=== PATIENT | female | born 2000 | race Hispanic/Latino ===

== ENCOUNTER 2022-03-24 13:49 | Emergency (ER) | payer MEDICAID ==
[~2022-03-24] VITALS: Ht 165.1 cm; Wt 63.5 kg
[2022-03-24 14:14] LABS: BASOPHILS % (AUTO) 0.7 % (0.0-5.0); EOSINOPHILS % (AUTO) 0.3 % (0.0-8.0); HEMATOCRIT 38.1 % (36-48); LYMPHOCYTES % (AUTO) 17.7 % (21.0-51.0); MEAN CORPUSCULAR HEMOGLOBIN 27.7 pg (27.0-33.0); MEAN CORPUSCULAR HGB CONC 32.5 g/dL (32.0-36.0); MONOCYTES % (AUTO) 5.9 % (3.0-13.0); NEUTROPHILS % (AUTO) 75.2 % (40.0-77.0); PLATELET COUNT (AUTO) 244 K/uL (130-400); RED BLOOD CELL COUNT(AUTO) 4.48 MIL/uL (4.00-5.50); RED CELL DISTRIBUTION WIDTH 14.5 % (11.0-15.5); WHITE BLOOD COUNT (AUTO) 8.7 K/uL (4.8-10.8)
[2022-03-24 14:24] LABS: CREATININE 0.8 mg/dL (0.5-1.5); POTASSIUM 3.6 mmol/L (3.5-5.1)
[2022-03-24] MEDS ORDERED: DiphenhydrAMINE HCL 50 MG/ML VIAL ONE (14:26)
[2022-03-24] MEDS ORDERED: PROCHLORPERAZINE 10MG/2ML INJ ONE (14:26)
[2022-03-24 14:28] LABS: ALBUMIN 3.9 g/dL (3.5-5.0); TOTAL PROTEIN, SERUM 6.8 g/dL (6.0-8.3)
[2022-03-24] MEDS ORDERED: PROCHLORPERAZINE 10MG/2ML INJ IV ONE (14:30)
[2022-03-24] MEDS ORDERED: DiphenhydrAMINE HCL 50 MG/ML VIAL IV ONE (14:30)
[2022-03-24 15:00] LABS: APPEARANCE,URINE CLEAR (CLEAR); BILIRUBIN,URINE NEGATIVE (NEGATIVE); GLUCOSE, URINE (UA) NEGATIVE (NEGATIVE); KETONES,URINE NEGATIVE (NEGATIVE); LEUKOCYTE ESTERASE ,URINE SMALL (NEGATIVE); NITRATE,URINE NEGATIVE (NEGATIVE); OCCULT BLOOD,URINE NEGATIVE (NEGATIVE); PH,URINE 6.5 (5.0-8.0); PROTEIN,URINE NEGATIVE (NEGATIVE); UROBILINOGEN,URINE 0.2 mg/dL (0.2-1.0)
[2022-03-24 15:08] LABS: HCG,QUALITATIVE URINE NEGATIVE (NEGATIVE)
[2022-03-24 15:09] LABS: COLOR,URINE STRAW (YELLOW)
[2022-03-24 15:14] LABS: BACTERIA,URINE None Seen /HPF (None Seen); MUCUS,URINE Few LPF (None Seen); RBC,URINE 0-1 /HPF (0-1); SQUAMOUS EPITHELIAL CELL,UR Few /HPF (0-2)
[2022-03-24] MEDS ORDERED: CEPH500B PO (15:33)
[2022-03-24 15:50] VITALS: BP 108/59
== END 2022-03-24 15:50 | disposition home or self-care (01) ==
LOC: EDH 13:49
DX: G43.909 Migraine, unspecified, not intractable, without status migrainosus (principal); N39.0 Urinary tract infection, site not specified
CPT/HCPCS: 99285; 96374; 70450; 96375; 80053; 85025; 81001; 81025; 36415; 93005; J1200; J0780

== ENCOUNTER 2024-08-17 03:44 | Emergency (ER) | payer MEDICAID ==
[~2024-08-17] VITALS: Ht 165.1 cm; Wt 65.3 kg
[~2024-08-17 03:44] MED LIST: CYCL10TA16 PO; IBUP-2070 PO; METH4TAB3 PO; PREN-154 PO
[2024-08-17 03:45] VITALS: TEMP 97.9
[2024-08-17] MEDS: 0.9%NACL 1000ML 1,000 ML IV ONE (04:09)
[2024-08-17 04:17] LABS: BASOPHILS # (AUTO) 0.05 K/uL (0.00-0.20); BASOPHILS % (AUTO) 0.5 % (0.0-5.0); EOSINOPHILS # (AUTO) 0.08 K/uL (0.00-0.70); EOSINOPHILS % (AUTO) 0.8 % (0.0-8.0); HEMATOCRIT 33.9 % (36-48); IMMATURE GRANULOCYTE ABSOLUTE 0.06 K/uL (0-1); LYMPHOCYTES # (AUTO) 3.4 K/uL (1.0-4.8); LYMPHOCYTES % (AUTO) 35.2 % (21.0-51.0); MEAN CORPUSCULAR HEMOGLOBIN 25.1 pg (27.0-33.0); MEAN CORPUSCULAR HGB CONC 32.2 g/dL (32.0-36.0); MEAN CORPUSCULAR VOLUME 78.1 fL (79-99); MONOCYTES # (AUTO) 0.5 K/uL (0.1-1.0); MONOCYTES % (AUTO) 5.3 % (3.0-13.0); NEUTROPHILS # (AUTO) 5.6 K/uL (1.8-7.7); NEUTROPHILS % (AUTO) 57.6 % (40.0-77.0); PLATELET COUNT (AUTO) 327 K/uL (130-400); RED BLOOD CELL COUNT(AUTO) 4.34 MIL/uL (4.00-5.50); RED CELL DISTRIBUTION WIDTH 13.2 % (11.0-15.5); WHITE BLOOD COUNT (AUTO) 9.7 K/uL (4.8-10.8)
[2024-08-17 04:27] LABS: CREATININE 0.7 mg/dL (0.5-1.0); POTASSIUM 3.1 mmol/L (3.5-5.1)
[2024-08-17 04:32] LABS: ALBUMIN 2.9 g/dL (3.5-5.0); BILIRUBIN,DIRECT 0.1 mg/dL (0.0-0.3); BILIRUBIN,TOTAL 0.2 mg/dL (0.2-1.0); TOTAL PROTEIN, SERUM 6.8 g/dL (6.0-8.3)
[2024-08-17 04:48] LABS: APPEARANCE,URINE CLOUDY (CLEAR); BILIRUBIN,URINE NEGATIVE (NEGATIVE); COLOR,URINE LIGHT-YELLOW (YELLOW); GLUCOSE, URINE (UA) NEGATIVE (NEGATIVE); KETONES,URINE NEGATIVE (NEGATIVE); LEUKOCYTE ESTERASE ,URINE 500 Leu/uL (NEGATIVE); NITRATE,URINE NEGATIVE (NEGATIVE); OCCULT BLOOD,URINE NEGATIVE (NEGATIVE); PH,URINE 6.5 (5.0-8.0); PROTEIN,URINE NEGATIVE (NEGATIVE); UROBILINOGEN,URINE 0.2 mg/dL (0.2-1.0)
[2024-08-17 04:49] LABS: ADD UA MICROSCOPIC YES
[2024-08-17 04:50] LABS: BACTERIA,URINE FEW /HPF (None Seen); MUCUS,URINE RARE LPF (None Seen); SQUAMOUS EPITHELIAL CELL,UR RARE /HPF (0-2); WBC CLUMP FEW /HPF (0-1); WBC,URINE 51-100 /HPF (0-1)
--- NOTE | 2024-08-17 04:50 | ERN ---
ED Note History of Present Illness Stated Complaint: EPIGASTRIC PAIN Chief Complaint: Abdominal Pain in Time Seen by MD: 04:05 Dictation: This is a 24-year-old female who is comes in with epigastric pain. She is 29.4 weeks gestation 2 para 1 with a due date on 10/29/2024 apparently began experiencing epigastric pain with nausea and vomitings. No headaches blurred vision no jaundice. No hematemesis or melena no diarrhea. Temperature 97.9 pulse 82 respirations 20 blood pressure 106/75 with a pulse oximetry of 100% on room air Allergies: Coded Allergies: No Known Allergies (Unverified Allergy, Unknown, 03/24/22) Home Meds Active Scripts Cyclobenzaprine HCl (Flexeril) 10 Mg Tab, 10 MG PO TID for muscle sstiffness, #14 TAB 0 Refills Prov:SHIVANI CALLE [employer]PER[employer]OR 03/03/24 Ibuprofen (Ibuprofen) 600 Mg Tablet, 600 MG PO Q6H PRN for PAIN, #30 TAB Prov:SHIVANI CALLE NP 03/03/24 Methylprednisolone (Medrol) 4 Mg Tab.ds.pk, 4 MG PO AD, #1 UNIT Prov:SHIVANI CALLE [employer] SUPERVISOR 03/03/24 Reported Medications Vits #93/Iron Fum/FA ( Formula Tablet) 9 Mg Iron-267 Mcg Tablet, 1 EACH PO DAILY, TAB 08/13/23 Past Medical History Past Medical History: No Pertinent History Surgical History: None Family History: Negative Social History: Negative, Lives with family History: Not Applicable : 2 Para: 1 Aborts: 0 RN Note Reviewed/Agreed w/PFSH: Yes Review of System Dictation Constitutional: Negative for fever,chills, and weight loss Eyes: Negative for injury, pain,redness, and discharge ENT: Negative for injury,pain or swelling Cardiovascular: Negative for chest pain, palpitations, and edema Respiratory: Negative for shortness of breath, cough, and wheezing, Abdomen/GI: Positive for epigastric abdominal pain, nausea, vomiting, denies diarrhea, and constipation Back: Negative for injury and pain : Negative for injury, bleeding and discharge MS/Extremity: Negative for injury and deformity Skin: Negative for rash, and discoloration Neuro: Negative for headache, weakness, numbness, tingling, and seizure Psych: Negative for suicide ideation, homicidal ideation, and hallucinations Initial Vital Sign VS Vital Signs Date Time Temp Pulse Resp B/P (MAP) Pulse Ox O2 Delivery O2 Flow Rate FiO2 08/17/24 03:45 97.9 82 20 106/75 100 Room Air 08/17/24 04:26 0 21 Physical Exam Dictation General: awake, alert, NAD Head/Face: Normocephalic, atraumatic Eyes: PERRL, EOMI, vision at baseline ENT: oral cavity clear, TMs clear, no signs of infection Neck: Trachea midline, supple, no nuchal rigidity Cardiovascular: RRR, normal S1/S2, No MRGs, no JVD Respiratory: CTAB, no respiratory distress, No rales or wheezes Abdomen: Soft, non-tender, non-distended, normal bowel sounds, no guarding or rebound. Skin: Warm, dry, normal turgor, no rash MS/Extremity: Pulses equal, no cyanosis, neurovascular intact, FROM Neuro: COAx4, GCS 15, strength 5/5, CN 2-12 intact, normal cerebellar exam, normal gait, Psych: Normal behavior, mood, and affect normal Extremities-trace edema without any palpable cords, Homans sign is negative Results (Laboratory/Radiology) Laboratory/Radiology Laboratory Tests Test 08/17/24 03:53 08/17/24 04:36 White Blood Count 9.7 K/uL (4.8-10.8) Red Blood Count 4.34 MIL/uL (4.00-5.50) Hemoglobin 10.9 g/dL (12.0-16.0) L Hematocrit 33.9 % (36-48) L Mean Corpuscular Volume 78.1 fL (79-99) L Mean Corpuscular Hemoglobin 25.1 pg (27.0-33.0) L Mean Corpuscular Hemoglobin Concent 32.2 g/dL (32.0-36.0) Red Cell Distribution Width 13.2 % (11.0-15.5) Platelet Count 327 K/uL (130-400) Mean Platelet Volume 10.8 fL (7.5-10.5) H Immature Granulocyte % (Auto) 0.6 % (0-1) Neutrophils (%) (Auto) 57.6 % (40.0-77.0) Lymphocytes (%) (Auto) 35.2 % (21.0-51.0) Monocytes (%) (Auto) 5.3 % (3.0-13.0) Eosinophils (%) (Auto) 0.8 % (0.0-8.0) Basophils (%) (Auto) 0.5 % (0.0-5.0) Neutrophils # (Auto) 5.6 K/uL (1.8-7.7) Lymphocytes # (Auto) 3.4 K/uL (1.0-4.8) Monocytes # (Auto) 0.5 K/uL (0.1-1.0) Eosinophils # (Auto) 0.08 K/uL (0.00-0.70) Basophils # (Auto) 0.05 K/uL (0.00-0.20) Absolute Immature Granulocyte (auto 0.06 K/uL (0-1) Nucleated Red Blood Cells 0.0 % (0.0-0.19) Sodium Level 141 mmol/L (136-145) Potassium Level 3.1 mmol/L (3.5-5.1) L Chloride Level 105 mmol/L (101-111) Carbon Dioxide Level 24 mmol/L (21-32) Blood Urea Nitrogen 10 mg/dL (7-18) Creatinine 0.7 mg/dL (0.5-1.0) Glomerular Filtration Rate Calc 125 mL/min (>90) Random Glucose 117 mg/dL (70-105) H Total Calcium 8.6 mg/dL (8.5-10.1) Total Bilirubin 0.2 mg/dL (0.2-1.0) Direct Bilirubin 0.1 mg/dL (0.0-0.3) Aspartate Amino Transf (AST/SGOT) 37 U/L (10-37) Alanine Aminotransferase (ALT/SGPT) 28 U/L (12-78) Alkaline Phosphatase 90 U/L (50-136) Total Protein 6.8 g/dL (6.0-8.3) Albumin 2.9 g/dL (3.5-5.0) L Lipase 43 U/L (16-77) Urine Color LIGHT-YELLOW (YELLOW) Urine Appearance CLOUDY (CLEAR) H Urine pH 6.5 (5.0-8.0) Urine Specific [place] 1.016 (1.001-1.031) Urine Protein NEGATIVE mg/dL (NEGATIVE) Urine Glucose (UA) NEGATIVE mg/dL (NEGATIVE) Urine Ketones NEGATIVE mg/dL (NEGATIVE) Urine Occult Blood NEGATIVE (NEGATIVE) Urine Nitrate NEGATIVE (NEGATIVE) Urine Bilirubin NEGATIVE mg/dL (NEGATIVE) Urine Urobilinogen 0.2 mg/dL (0.2-1.0) Urine Leukocyte Esterase 500 Nava/uL (NEGATIVE) H Urine RBC 2-5 /HPF (0-1) H Urine WBC 51-100 /HPF (0-1) H Urine WBC Clumps (Auto) FEW /HPF (0-1) Urine Squamous Epithelial Cells RARE /HPF (0-2) Urine Bacteria FEW /HPF (None Seen) ED Course ED Course Orders Procedure Category Date Status Time Cbc With Differential LAB 08/17/24 Complete 04:07 Basic Metabolic Panel LAB 08/17/24 Complete 04:07 Lipase LAB 08/17/24 Complete 04:07 Hepatic Function Panel LAB 08/17/24 Complete 04:07 Urinalysis Profile LAB 08/17/24 Complete 04:07 0.9%Nacl 1000ml (Ns PHA 08/17/24 In Process 1000ml) 04:30 Culture Urine RICK 08/17/24 In Process 04:49 Famotidine 20mg Vial PHA 08/17/24 Complete (Pepcid 20mg Vial) 05:00 Ondansetron 4mg Inj PHA 08/17/24 Complete (Zofran 4mg Inj) 05:00 Current Medications Medications (Trade) Dose Ordered Sig/Jazmine Route PRN Reason Start Time Stop Time Status Last Admin Dose Admin Famotidine (Pepcid 20mg Vial) 20 mg ONCE ONCE IV 08/17/24 05:00 08/17/24 05:01 DC 08/17/24 05:12 Ondansetron HCl (zoFRAN 4MG INJ) 4 mg ONCE ONCE IVP 08/17/24 05:00 08/17/24 05:01 DC 08/17/24 05:14 Sodium Chloride 1,000 ml @ 125 mls/hr Q8H ONCE IV 08/17/24 04:30 08/17/24 12:29 08/17/24 04:09 Vital Signs Date Time Temp Pulse Resp B/P (MAP) Pulse Ox O2 Delivery O2 Flow Rate FiO2 08/17/24 05:20 82 17 106/57 100 Room Air* 0 21 08/17/24 04:26 81 19 103/58 100 Room Air* 0 21 08/17/24 03:45 97.9 82 20 106/75 100 Room Air We will perform diagnostic labs, administer medications according to the patient's complaint. Once the results are available, will review and personally interpreted the labs to rule out any acute life-threatening emergency the trach require immediate intervention and treatment. I will then re-evaluate the patient after treatment and diagnostic exams have return to determine whether the patient requires any further testing, can safely be discharged home or need further admission to hospital for additional treatment and evaluation. Responded very well to Pepcid and ondansetron. Also given IV fluids. 5:37 a.m. on repeated re-evaluations she is feeling significantly improved her symptoms have resolved. I explained to her that it is not uncommon to have gastritis and esophagitis and reflux symptoms in the 3rd trimester of and she could take [id number] Pepcid. Medical Decision Making MDM MDM: Differential diagnosis: Gastritis, esophagitis, food poisoning, gastroenteritis, cholecystitis Rationale: Tests considered and ordered secondary to shared decision making include: Previous outside records reviewed: Old ER visits. Risk of complication and/or morbidity or mortality of patient management: None Medications-Per medication reconciliation Need for hospitalization: Patient does not meet criteria for hospitalization. Need for emergency major/minor surgery: No There are no social concerns with this patient. Prescription drug management Prescriptions will include symptomatic care Patient's prior external medical records from other ER visits were reviewed by me as indicated. Prior testing and results from previous visits were reviewed. Prior tests were taken into account with medical decision making and resource utilization, independent historian/historians were used to obtain complete medical history. I independently interpreted the test that were performed, results were reviewed by me and considered findings on radiology if ordered. Medical management and examination interpretation discussions were had by me with other qualified healthcare professionals as indicated for the patient's care. Problem List Problem List: (1) Gastritis (2) DX & DISP Disposition: Discharge Departure Impression: Primary Impression: Gastritis Additional Impression: Condition: Stable Scripts Ondansetron (Ondansetron Odt) 4 Mg Tab.rapdis 4 MG PO Q6HPRN PRN for nausea, #16 TAB 0 Refills Prov: THEO JEAN MD 08/17/24 Additional Instructions: Patient and the caregiver have been informed of all the diagnostic tests and the imaging conducted during the today's visit to the emergency room and has verbalized understanding of the results I have personally reviewed and interpreted all diagnostic exams performed here in the ER today as well as the vital signs documented by the nursing staff. The patient is now being discharged to home and should follow up with the primary care physician or the specialist as directed by the ER staff. Follow-up with primary care provider in 1 to 2 days. Take medications as directed here in the emergency room. Okay to continue home medications unless otherwise discussed during your visit in the emergency room today. Return to your nearest emergency room if symptoms worsen or if there is no improvement. Call 911 if you need immediate assistance. Take Tylenol or Motrin [id number] as needed and if no contraindications are present. Increase oral hydration. A wound culture or urine culture was ordered here in the emergency room department please follow-up with primary care provider and advise them to get repeat ports from our facility. If you had any Ridge wrap/splints that were applied here, please do not remove them until you see your primary care or specialty. Referrals: NONE (PCP) THEO JEAN MD Aug 17, 2024 04:50
[2024-08-17] MEDS: FAMOTIDINE 20MG VIAL IV ONE (05:12)
[2024-08-17] MEDS: ondanSETRON 4MG INJ IVP ONE (05:14)
[2024-08-17] MEDS ORDERED: ONDA-243 PO (05:38)
[2024-08-17 05:40] VITALS: BP 102/63; PULSE 82; RESP 17; O2SAT 100
[2024-08-17] MEDS: PoTASSium BIcarbonate/CIT AC 25 MEQ TABLET.EFF PO ONE (06:04)
== END 2024-08-17 06:32 | disposition home or self-care (01) ==
LOC: EDH 03:44
DX: O26.893 Other specified pregnancy related conditions, third trimester (principal); K29.70 Gastritis, unspecified, without bleeding
CPT/HCPCS: 99284; 96374; 96375; 80076; 80048; 83690; 85025; 87086; 81001; 36415; J3490; J7030; J2405

== ENCOUNTER 2025-01-22 11:19 | Inpatient (IN) | payer MEDICAID ==
[~2025-01-22] VITALS: Ht 165.1 cm; Wt 61.5 kg
[~2025-01-22 11:19] MED LIST changes: +ONDA-243 PO
[2025-01-22] MEDS: LACTATED RINGERS 1000ML 1,000 ML IV ONE (11:40)
[2025-01-22] MEDS: DICYCLOMINE HCL 10 MG/5 ML ML PO ONE (11:41)
[2025-01-22] MEDS: MAG/ALUM/SIMETH 30 ML UDCUP PO ONE (11:41)
[2025-01-22] MEDS: LIDOCAINE HCL 2% VISCOUS 15 ML UDCUP PO ONE (11:41)
[2025-01-22 11:45] LABS: IMMATURE GRANULOCYTE ABSOLUTE 0.05 K/uL (0-1); NUCLEATED RED BLOOD CELLS 0.0 % (0.0-0.19); PLATELET COUNT (AUTO) 374 K/uL (130-400); RED BLOOD CELL COUNT(AUTO) 5.08 MIL/uL (4.00-5.50); RED CELL DISTRIBUTION WIDTH 21.1 % (11.0-15.5); WHITE BLOOD COUNT (AUTO) 12.4 K/uL (4.8-10.8)
--- NOTE | 2025-01-22 11:59 | EKG ---
[facility] Test Date: 2025-01-22 Test Time: 11:55:04 Pat Name: HADLEY BREWER Department: ED Room: 306 Gender: F Web Operations Specialist: [id number] : 2000 Requested By: NEMESIO XAVIER Order Number: [id number] Reading MD: Philip Stiles Measurements Intervals Leivasy Rate: 82 P: 4 MO: 113 QRS: 55 QRSD: 86 T: 2 QT: 386 QTc: 452 Interpretive Statements Sinus rhythm Compared to ECG 03/24/2022 13:57:26 Sinus arrhythmia no longer present Short MO interval no longer present Electronically Signed On 01-23-2025 15:04:46 CDT by Philip Stiles Please click the below link to view image of tracing.
[2025-01-22 12:02] LABS: ASPARTATE AMINOTRANSFERASE 299.0 U/L (10-37); CREATINE KINASE, TOTAL 103.0 U/L (21-232); CREATININE 0.9 mg/dL (0.5-1.0); GLOMERULAR FILTR. RATE CALC 92.0 mL/min (>90); GLUCOSE,RANDOM 158.0 mg/dL (70-105); HCG,QUANTITATIVE 0.0 mIU/mL (0-5); SODIUM SERUM 138.0 mmol/L (136-145); TOTAL PROTEIN, SERUM 7.9 g/dL (6.0-8.3); UREA NITROGEN, BLOOD 12.0 mg/dL (7-18)
--- NOTE | 2025-01-22 12:53 | ERN ---
General Chief Complaint: Nausea,Vomiting,Diarrhea Stated Complaint: ABDOMINAL PAIN, NAUSEA, VOMITING Time Seen by MD: 11:19 Source: patient History of Present Illness Initial Comments PATIENT IS A 24-YEAR-OLD FEMALE COMING IN COMPLAINING OF EPIGASTRIC PAIN. PATIENT STATES THAT THE PAIN BEGAN YESTERDAY IN HIS HAS BEEN GETTING WORSE SINCE THEN. PATIENT STATES HE CAN NOT TOLERATE ANYTHING ORAL IN HIS ALSO COMPLAINING OF MULTIPLE EMESIS. Allergies: Coded Allergies: No Known Allergies (Unverified Allergy, Unknown, 03/24/22) Home Meds Active Scripts Ondansetron (Ondansetron Odt) 4 Mg Tab.rapdis, 4 MG PO Q6HPRN PRN for nausea, #16 TAB 0 Refills Prov:THEO JEAN MD 08/17/24 Cyclobenzaprine HCl (Flexeril) 10 Mg Tab, 10 MG PO TID for muscle sstiffness, #14 TAB 0 Refills Prov:SHIVANI CALLE NP 03/03/24 Ibuprofen (Ibuprofen) 600 Mg Tablet, 600 MG PO Q6H PRN for PAIN, #30 TAB Prov:SHIVANI CALLE NP 03/03/24 Methylprednisolone (Medrol) 4 Mg Tab.ds.pk, 4 MG PO AD, #1 UNIT Prov:SHIVANI CALLE NP 03/03/24 Reported Medications Vits #93/Iron Fum/FA ( Formula Tablet) 9 Mg Iron-267 Mcg Tablet, 1 EACH PO DAILY, TAB 08/13/23 Past Medical History Past Medical History: Other Medical History Other: GASTRITIS Past Surgical History: None Family History Family History: Negative Social History Social History: Negative, Lives with family Female( History) History: Not Applicable : 2 Para: 1 Aborts: 0 ROS Dictation CONSTITUTIONAL: NO CHILLS, NO FEVER, NO WEAKNESS, NO DIAPHORESIS, NO MALAISE. HEAD/FACE: NO SIGNS OF TRAUMA. EENT: NO EYE PAIN, NO BLURRED VISION, NO TEARING, NO DOUBLE VISION, NO EAR PAIN, NO EAR DISCHARGE, NO NOSE PAIN, NO NASAL CONGESTION, NO THROAT PAIN, NO THROAT SWELLING, NO MOUTH PAIN. RESPIRATORY: NO COUGH, NO ORTHOPNEA, NO SOB, NO STRIDOR, NO WHEEZING. CARDIOVASCULAR: NO CHEST PAIN, NO EDEMA, NO PALPITATIONS, NO SYNCOPE. GASTROINTESTINAL/ABDOMINAL: ABDOMINAL PAIN, NO CONSTIPATION, NO DIARRHEA, NAUSEA, VOMITING. GENITOURINARY: NO ABNORMAL DISCHARGE, NO DYSURIA, NO FREQUENT URINATION, NO HEMATURIA. NO COMPLAINTS OF PAIN IN THE GENITALS. MUSCULOSKELETAL: NO BACK PAIN, NO GOUT, NO JOINT PAIN, NO JOINT SWELLING, NO MUSCLE PAIN, NO MUSCLE STIFFNESS, NO NECK PAIN. INTEGUMENTARY: NO CHANGE IN COLOR, NO CHANGE IN HAIR/NAILS, NO DRYNESS, NO LESION, NO LUMPS, NO RASH. NEUROLOGICAL/PSYCH: NO ANXIETY, NOT DEPRESSED, NO EMOTIONAL PROBLEM, NO HEADACHE, NO NUMBNESS, NO PRE-EXISTING DEFICIT, NO HISTORY OF SEIZURES, NO TREMORS, NO WEAKNESS. HEMATOLOGIC/LYMPHATIC: NOT ANEMIC, NO HISTORY OF BLOOD CLOTS, NO APPARENT BLEEDING, NO BRUISING, GLANDS NOT SWOLLEN. ALL SYSTEMS NEGATIVE, EXCEPT NOTED. Physical Exam Physical Exam Dictation VITAL SIGNS: REVIEWED. GENERAL APPEARANCE: ALERT, ORIENTED X3, NO ACUTE DISTRESS, OBESE. HEAD AND FACE: NON-TRAUMATIC. EYES: PERRL, PINK CONJUNCTIVAS, EYELID NO TRAUMA, ANTERIOR CHAMBER CLEAR. EARS: PINNAS INTACT AND NO SIGNS OF TRAUMA OR ERYTHEMA. EAR CANALS CLEAR AND NO DISCHARGE. TMS NO ERYTHEMA. NOSE: NO DISCHARGE, NO BLEEDING. OROPHARYNX: MOUTH NORMAL, TEETH NO CARIES, TONGUE PINK. PHARYNX CLEAR, NO ERYTHEMA. TONSILS NO EXUDATES, NO ABSCESSES NOTED. MUCOUS MEMBRANE MOIST. NECK: SUPPLE, NON-TENDER, NO THYROMEGALY, NO MASSES, NO JVD, NO BRUITS. BREAST: DEFERRED. CHEST: NO TENDERNESS, NO CREPITUS, NO PARADOXICAL MOVEMENT, NO RETRACTIONS. LUNGS: CLEAR, WELL-VENTILATED, SYMMETRIC, NO RALES, NO WHEEZING, NO RHONCHI, NO STRIDOR, GOOD BREATH SOUNDS BILATERALLY. HEART: REGULAR RATE, REGULAR RHYTHM, NO MURMUR, NO GALLOPS. VASCULAR: NO PERIPHERAL EDEMA. ABDOMEN: SOFT, POSITIVE BOWEL SOUNDS, NONDISTENDED, NO GUARDING, EPIGASTRIC TENDER, NO REBOUND, NO MASSES NO HEPATOMEGALY, NO SPLENOMEGALY, AMATO'S SIGN, NO HERNIAS. RECTAL: DEFERRED. GENITAL: DEFERRED. NEUROLOGICAL: NORMAL SPEECH, GROSS MOTOR FUNCTION INTACT, GROSS SENSORY FUNCTION INTACT. MUSCULOSKELETAL: NECK NONTENDER, FULL RANGE OF MOTION, BACK NONTENDER, FULL RANGE OF MOTION. EXTREMITIES: NONTENDER, FULL RANGE OF MOTION. SKIN: COLOR PINK, DRY, NO TURGOR, NO RASH, NO LACERATIONS, NO ABRASIONS, NO CONTUSIONS. LYMPHATICS: DEFERRED. Results Laboratory and Microbiology Lab and Micro Result Laboratory Tests Test 01/22/25 11:24 01/22/25 11:36 01/22/25 14:00 Urine Color DARK-YELLOW (YELLOW) Urine Appearance CLOUDY (CLEAR) H Urine pH 7.5 (5.0-8.0) Urine Specific [place] 1.014 (1.001-1.031) Urine Protein 10 mg/dL (NEGATIVE) H Urine Glucose (UA) NEGATIVE mg/dL (NEGATIVE) Urine Ketones NEGATIVE mg/dL (NEGATIVE) Urine Occult Blood NEGATIVE (NEGATIVE) Urine Nitrate NEGATIVE (NEGATIVE) Urine Bilirubin 2 mg/dL (NEGATIVE) H Urine Urobilinogen 6 mg/dL (0.2-1.0) H Urine Leukocyte Esterase 250 Nava/uL (NEGATIVE) H Urine RBC 2-5 /HPF (0-1) H Urine WBC 6-10 /HPF (0-1) H Urine Squamous Epithelial Cells MOD /HPF (0-2) Urine Bacteria RARE /HPF (None Seen) Urine HCG, Qualitative NEGATIVE (NEGATIVE) Urine Opiates Screen NEGATIVE (NEGATIVE) Urine Barbiturates Screen NEGATIVE (NEGATIVE) Urine Phencyclidine Screen NEGATIVE (NEGATIVE) Urine Amphetamines Screen NEGATIVE (NEGATIVE) Urine Benzodiazepines Screen NEGATIVE (NEGATIVE) Urine Cocaine Screen NEGATIVE (NEGATIVE) Urine Marijuana (THC) Screen POSITIVE (NEGATIVE) H White Blood Count 12.4 K/uL (4.8-10.8) H Red Blood Count 5.08 MIL/uL (4.00-5.50) Hemoglobin 12.4 g/dL (12.0-16.0) Hematocrit 39.5 % (36-48) Mean Corpuscular Volume 77.8 fL (79-99) L Mean Corpuscular Hemoglobin 24.4 pg (27.0-33.0) L Mean Corpuscular Hemoglobin Concent 31.4 g/dL (32.0-36.0) L Red Cell Distribution Width 21.1 % (11.0-15.5) H Platelet Count 374 K/uL (130-400) Mean Platelet Volume 9.5 fL (7.5-10.5) Immature Granulocyte % (Auto) 0.4 % (0-1) Neutrophils (%) (Auto) 68.1 % (40.0-77.0) Lymphocytes (%) (Auto) 25.0 % (21.0-51.0) Monocytes (%) (Auto) 5.5 % (3.0-13.0) Eosinophils (%) (Auto) 0.6 % (0.0-8.0) Basophils (%) (Auto) 0.4 % (0.0-5.0) Neutrophils # (Auto) 8.4 K/uL (1.8-7.7) H Lymphocytes # (Auto) 3.1 K/uL (1.0-4.8) Monocytes # (Auto) 0.7 K/uL (0.1-1.0) Eosinophils # (Auto) 0.08 K/uL (0.00-0.70) Basophils # (Auto) 0.05 K/uL (0.00-0.20) Absolute Immature Granulocyte (auto 0.05 K/uL (0-1) Nucleated Red Blood Cells 0.0 % (0.0-0.19) Red Blood Cell Morphology See comments Sodium Level 138 mmol/L (136-145) Potassium Level 2.8 mmol/L (3.5-5.1) *L Chloride Level 99 mmol/L (101-111) L Carbon Dioxide Level 25 mmol/L (21-32) Blood Urea Nitrogen 12 mg/dL (7-18) Creatinine 0.9 mg/dL (0.5-1.0) Glomerular Filtration Rate Calc 92 mL/min (>90) Random Glucose 158 mg/dL (70-105) H Total Calcium 9.4 mg/dL (8.5-10.1) Total Bilirubin 5.1 mg/dL (0.2-1.0) H Aspartate Amino Transf (AST/SGOT) 299 U/L (10-37) H Alanine Aminotransferase (ALT/SGPT) 522 U/L (12-78) H Alkaline Phosphatase 383 U/L (50-136) H Total Creatine Kinase 103 U/L (21-232) Total Protein 7.9 g/dL (6.0-8.3) Albumin 3.9 g/dL (3.5-5.0) Lipase 9744 U/L (16-77) *H Human Chorionic Gonadotropin, Quant 0 mIU/mL (0-5) Triglycerides Level 194 mg/dL (30-200) Labs Reviewed?: Yes EKG/XRAY/US/CT/MRI EKG Comment 01/22/2025 TIME 11:55 A.M. VENTRICULAR RATE 82 SINUS RHYTHM MD [address] WAVE ELEVATION OR DEPRESSION MDM MDM: DIFFERENTIAL DIAGNOSIS: CHOLECYSTITIS, PANCREATITIS, CANNABIS ABUSE RATIONALE: TESTS CONSIDERED AND ORDERED SECONDARY TO SHARED DECISION MAKING INCLUDE: LABS, ECG AND RADIOLOGY PREVIOUS OUTSIDE RECORDS REVIEWED: OLD ER VISITS. RISK OF COMPLICATION AND/OR MORBIDITY OR MORTALITY OF PATIENT MANAGEMENT: NONE MEDICATIONS-PER MEDICATION RECONCILIATION NEED FOR HOSPITALIZATION: PATIENT DOES MEET CRITERIA FOR HOSPITALIZATION. NEED FOR EMERGENCY MAJOR/MINOR SURGERY: YES THERE ARE NO SOCIAL CONCERNS WITH THIS PATIENT. PRESCRIPTION DRUG MANAGEMENT PRESCRIPTIONS WILL INCLUDE SYMPTOMATIC CARE PATIENT'S PRIOR EXTERNAL MEDICAL RECORDS FROM OTHER ER VISITS WERE REVIEWED BY ME INDICATED. PRIOR TESTING AND RESULTS FROM PREVIOUS VISITS WERE REVIEWED. PRIOR TESTS WERE TAKEN INTO ACCOUNT WITH MEDICAL DECISION MAKING AND RESOURCE UTILIZATION, INDEPENDENT HISTORIAN/HISTORIANS WERE USED TO OBTAIN COMPLETE MEDICAL HISTORY. I INDEPENDENTLY INTERPRETED THE TEST THAT WERE PERFORMED, RESULTS WERE REVIEWED BY ME AND CONSIDERED FINDINGS ON RADIOLOGY IF ORDERED. MEDICAL MANAGEMENT AND EXAMINATION INTERPRETATION DISCUSSIONS WERE HAD BY ME WITH OTHER QUALIFIED HEALTHCARE PROFESSIONALS INDICATED FOR THE PATIENT'S CARE. PATIENT IS A 24-YEAR-OLD FEMALE COMING IN COMPLAINING OF ABDOMINAL PAIN. LABORATORY WORKUP DID DISCLOSE TRANSAMINITIS WITH PANCREATITIS. ULTRASOUND DISCLOSE A COMMON BILE DUCT DILATION WITH MULTIPLE GALLSTONES IN THE GALLBLADDER. PATIENT WILL BE ADMITTED UNDER THE CARE OF THE HOSPITALIST GROUP FOR ONGOING MANAGEMENT. PATIENT WILL REQUIRE DEPUTY SHERIFF K9 HANDLER. ED Course Orders Procedure Category Date Status Time Cbc With Differential LAB 01/22/25 Complete 11:28 Comprehensive LAB 01/22/25 Complete Metabolic Panel 11:28 Hcg,Quantitative LAB 01/22/25 Complete 11:28 ,Urine Test LAB 01/22/25 Complete 11:28 Urinalysis Profile LAB 01/22/25 Complete 11:28 12 Lead Ekg Tracing- EKG 01/22/25 Complete Technical 11:28 Lactated Ringers PHA 01/22/25 Complete 1000ml (Lactated 11:30 Ondansetron 4mg Inj PHA 01/22/25 Complete (Zofran 4mg Inj) 11:30 Lidocaine Hcl 2% PHA 01/22/25 Complete Viscous (Lidocaine Hcl 11:30 Mag/Alum/Simeth 30ml PHA 01/22/25 Complete (Maalox Plus 30ml) 11:30 Pantoprazole 40mg Inj PHA 01/22/25 Complete (Protonix 40mg Inj 11:30 Dicyclomine Hcl PHA 01/22/25 Complete (Bentyl 10mg/5ml 11:30 Creatine Kinase, Total LAB 01/22/25 Complete 11:28 Lipase LAB 01/22/25 Complete 11:28 Acetaminophen 500mg PHA 01/22/25 Complete Tab (Tylenol 500mg T 11:30 Drug Screen Urine LAB 01/22/25 Complete 11:28 Us Abdominal Ruq\Ltd US 01/22/25 Resulted 12:49 Potassium Chloride PHA 01/22/25 Complete 10meq/100ml ([place] 13:30 Potassium Bicarb/Cit PHA 01/22/25 Complete Ac 25meq (K-Lyte Ta 13:30 Culture Urine RICK 01/22/25 In Process 13:24 Triglycerides LAB 01/22/25 Complete 13:50 Hydromorphone 0.5mg PHA 01/22/25 Complete Syg (Dilaudid 0.5mg 14:00 Zosyn 3.375gm+Ns 50ml PHA 01/22/25 In Process (Zosyn 3.375gm+Ns 15:00 Admit Orders ADM 01/22/25 Transmitted 14:52 Lactated Ringers PHA 01/22/25 Logged 1000ml (Lactated 15:00 Initiate Po BRENDA 01/22/25 In Process Hypokalemia Protoc 14:52 Potassium Chloride PHA 01/22/25 Logged 20meq/100ml ([place] 15:00 Potassium Chl 10% PHA 01/22/25 Logged Elixir 20meq (Kcl 10% 15:00 Potassium Chloride PHA 01/22/25 Logged 20meq Er (K-Dur/Klor- 15:00 Notify Physician If CPOE 01/22/25 Transmitted There Is 14:52 Notify Md On The Next CPOE 01/22/25 Transmitted 14:52 Notify Md On The CPOE 01/22/25 Transmitted Next(Cont.) 14:52 Magnesium LAB 01/22/25 Logged 14:52 Erythrocyte LAB 01/22/25 Logged Sedimentation Rate 14:52 Crp Quantitative LAB 01/22/25 Logged 14:52 Procalcitonin LAB 01/22/25 Logged 14:52 Gastroenterology CONPHYSVC 01/22/25 Transmitted Consult 14:52 Pantoprazole 40mg Inj PHA 01/23/25 Logged (Protonix 40mg Inj 09:00 Current Medications Medications (Trade) Dose Ordered Sig/Jazmine Route PRN Reason Start Time Stop Time Status Last Admin Dose Admin Acetaminophen (TYLenol 500MG TAB) 500 mg ONCE ONCE PO 01/22/25 11:30 01/22/25 11:34 DC 01/22/25 11:41 Al Hydroxide/Mg Hydroxide (MAALox PLUS 30ML) 30 ml ONCE ONCE PO 01/22/25 11:30 01/22/25 11:34 DC 01/22/25 11:41 Dicyclomine HCl (Bentyl 10mg/5ml Syrup) 10 mg ONCE ONCE PO 01/22/25 11:30 01/22/25 11:35 DC 01/22/25 11:41 Hydromorphone HCl (DiLAUDid 0.5MG INJ) 0.5 mg ONCE ONCE IM 01/22/25 14:00 01/22/25 14:01 DC 01/22/25 14:11 Lactated Ringer's 1,000 ml @ 0 mls/hr ONCE ONCE IV 01/22/25 11:30 01/22/25 11:34 DC 01/22/25 11:40 Lactated Ringer's 1,000 ml @ 150 mls/hr Q6H40M IV 01/22/25 15:00 02/21/25 14:59 UNV Lidocaine HCl (Lidocaine HCl 2% Viscous) 10 ml ONCE ONCE PO 01/22/25 11:30 01/22/25 11:34 DC 01/22/25 11:41 Ondansetron HCl (zoFRAN 4MG INJ) 4 mg ONCE ONCE IVP 01/22/25 11:30 01/22/25 11:34 DC 01/22/25 11:40 Pantoprazole Sodium (PROTonix 40MG INJ) 40 mg DAILY IVP 01/23/25 09:00 02/22/25 08:59 UNV Pantoprazole Sodium (PROTonix 40MG INJ) 40 mg ONCE ONCE IVP 01/22/25 11:30 01/22/25 11:34 DC 01/22/25 11:40 Piperacillin Sod/ Tazobactam Sod (Zosyn 3.375gm+NS 50ml) 3.375 gm ONCE ONCE IV 01/22/25 15:00 01/22/25 15:01 Potassium Bicarbonate (K-Lyte Tablet Eff 25 Meq Tablet.eff) 50 meq ONCE ONCE PO 01/22/25 13:30 01/22/25 13:31 DC 01/22/25 13:38 Potassium Chloride 100 ml @ 100 mls/hr AD PRN IV POTASSIUM PROTOCOL 01/22/25 15:00 02/21/25 14:59 UNV Potassium Chloride 100 ml @ 100 mls/hr ONCE ONCE IV 01/22/25 13:30 01/22/25 14:29 DC 01/22/25 13:38 Potassium Chloride (K-Dur/Klor-Con 20meq) 20 meq AD PRN PO POTASSIUM PROTOCOL 01/22/25 15:00 02/21/25 14:59 UNV Potassium Chloride (KCl 10% Elixir 20meq/15ml) 20 meq AD PRN PO POTASSIUM PROTOCOL 01/22/25 15:00 02/21/25 14:59 UNV Vital Signs Date Time Temp Pulse Resp B/P (MAP) Pulse Ox O2 Delivery O2 Flow Rate FiO2 01/22/25 12:36 98.6 78 18 127/83 100 Room Air* 0 21 01/22/25 11:30 98.4 86 18 130/95 100 Room Air* 0 21 01/22/25 11:19 98.1 86 18 138/100 100 Room Air 0 DX & DISP Disposition: Inpatient Decision to Admit Time: 14:59 Departure Impression: Primary Impression: Cholecystitis Additional Impressions: Pancreatitis, UTI (urinary tract infection), Cannabis abuse Condition: Stable Referrals: SELF,REFERRAL (PCP) NEMESIO XAVIER MD Jan 22, 2025 12:53
[2025-01-22 13:23] LABS: APPEARANCE,URINE CLOUDY (CLEAR); GLUCOSE, URINE (UA) NEGATIVE (NEGATIVE); LEUKOCYTE ESTERASE ,URINE 250 Leu/uL (NEGATIVE); NITRATE,URINE NEGATIVE (NEGATIVE); OCCULT BLOOD,URINE NEGATIVE (NEGATIVE)
[2025-01-22 13:24] LABS: ADD UA MICROSCOPIC YES
[2025-01-22 13:27] LABS: SQUAMOUS EPITHELIAL CELL,UR MOD /HPF (0-2)
[2025-01-22 13:29] LABS: AMPHET/METH SCREEN,URINE NEGATIVE (NEGATIVE); BARBITURATE SCREEN, URINE NEGATIVE (NEGATIVE); CANNABINOID SCREEN,URINE POSITIVE (NEGATIVE); COCAINE SCREEN,URINE NEGATIVE (NEGATIVE)
[2025-01-22 13:31] LABS: HCG,QUALITATIVE URINE NEGATIVE (NEGATIVE)
--- NOTE | 2025-01-22 14:08 | HMCIMG ---
US ABDOMINAL RUQ\E\LTD HISTORY: Right upper quadrant and COMPARISON: None TECHNIQUE: Right upper quadrant abdominal ultrasound study was performed. FINDINGS: Liver measured 15 cm. The visualized portion of the pancreas is within normal limits. Liver is echogenic consistent with liver parenchymal disease. Gallstones are seen in the distended gallbladder. Common duct measures 8 mm. No evidence of gallbladder wall thickening is seen. Right kidney measures 10 point 4 x 4 by 4.5 cm. No hydronephrosis is seen of the right kidney. IMPRESSION: 1. Gallstones in a distended gallbladder. Ductal dilatation is seen. 2. No hydronephrosis is seen.
[2025-01-22] MEDS ORDERED: PoTASSium chl 10% ELIXIR 20MEQ 20 MEQ/15 ML UDCUP PO PRN (15:00)
[2025-01-22 16:12] LABS: INR 0.95 (0.85-1.15)
[2025-01-22] MEDS: ZOSYN 3.375GM +NS 50ML IV ONE (16:14)
[2025-01-22] MEDS: LACTATED RINGERS 1000ML 1,000 ML IV SCH (16:14)
--- NOTE | 2025-01-22 17:20 | HP ---
[facility] HISTORY AND PHYSICAL Date of Service: Jan 22, 2025 Time of Service: 17:13 HISTORY OF PRESENT ILLNESS: Date of service: 01/22/2025, patient was seen in ER hallway D This is a 24-year-old female with history of gastritis who presented to the ER for further evaluation of epigastric abdominal pain with nausea and vomiting. Symptoms have been ongoing for the past five days. She has had multiple e pisodes of nausea and vomiting and poor oral intake. Pain is 10/10 in severity. Denies previous history of major medical comorbidities otherwise. Denies any cardiac or pulmonary comorbidities. On presentation to the hospital, patient was noted to be, afebrile and hemodynamically stable. [place] [address], hemoglobin of 12.4, platelet count of 250063. BMP remarkable for sodium of 138, potassium of 2.8, CO2 of 25, creatinine of 0.9, total bilirubin of 5.1, AST of 299, ALT of 522, alkaline phosphatase of 383, magnesium of 1.7, and lipase of 9744. Patient will be admitted for further treatment and management of acute pancreatitis secondary to likely choledocholithiasis. Consultation with GI and General surgery will be requested this admission. Patient also noted to have cloudy urine with significant UTI, patient will be placed on IV antibiotics for management of UTI. We will see how patient progresses closely in the next 48-72 hours. REVIEW OF SYSTEMS CONSTITUTIONAL: Denies fevers, chills, or night sweats. No unintentional weight loss reported. NEUROLOGICAL: Denies headache, amaurosis fugax, motor weakness, sensory deficit, vertigo/spinning sensation, gait abnormalities, or tremors. ENT: No hearing loss, otalgia, otorrhea, rhinitis, rhinorrhea, hoarseness, or sore throat. CARDIOVASCULAR: Denies any exertional angina, dyspnea on exertion, orthopnea, paroxysmal nocturnal dyspnea, palpitations, life-threatening arrhythmias, claudication. PULMONARY: Denies any shortness of breath, cough, phlegm/sputum, hemoptysis, pleuritic chest pain. SLEEP: Denies morning headaches, daytime somnolence or napping. Denies difficulty falling asleep, staying asleep, waking from sleep. Denies knowledge of snoring. GASTROINTESTINAL: nausea, vomiting, severe abdominal pain involving the epigastric region GENITOURINARY: Denies frequency, urgency, nocturia, hematuria or incontinence (Storage/Irritative symptoms.) Low urinary stream, straining to void, urinary intermittency or hesitancy, splitting of the voiding stream, terminal dribbling. ENDOCRINOLOGIC: Denies polyuria, polydipsia, polyphagia or heat/cold intolerances. HEMATOLOGIC: Denies thrombophilia/previous clots, or coagulopathy/bleeding disorders. ONCOLOGIC: Denies personal history of malignancy. DERMATOLOGIC: Denies rashes or pruritus. PSYCHIATRIC: Denies any suicidal or homicidal ideation. Denies hallucinations. PAST MEDICAL HISTORY: History of gastritis PAST SURGICAL HISTORY: Denies history of major surgeries PAST SOCIAL HISTORY: Denies active smoking or alcohol consumption, uses marijuana occasionally FAMILY HISTORY: Denies pertinent family history Allergies: No known drug allergies Coded Allergies: No Known Allergies (Unverified Allergy, Unknown, 03/24/22) PHYSICAL EXAM GENERAL APPEARANCE: The patient is awake, alert, and oriented, in no acute cardiopulmonary distress. NEUROLOGICAL: Cranial nerves II-XII grossly intact. Motor is 5/5 in bilateral upper and lower extremities proximal to distal. No sensory deficits. HEENT: Face is symmetric. Pupils are equal and reactive. Extraocular movements are intact. NECK: Supple. No JVD. No thyromegaly. No submental, submandibular, pre- /postauricular, occipital or supraclavicular lymphadenopathy. CHEST: Normal chest expansion. No Telemetry. LUNGS: Absence of any rales, rhonchi or any wheezing. CARDIOVASCULAR: Regular. S1 and S2 normal. No appreciable rubs, murmurs or gallops. ABDOMEN: Soft, nontender, tenderness to palpation involving the epigastric region : Deferred. No Browning. EXTREMITIES: Non-edematous and not cyanotic. No clubbing. Good capillary refill. SKIN: No skin breakdown. Vital Sign (Last 24 Hours) 01/22/25 12:36 Temp 98.6 Pulse 78 Resp 18 B/P (MAP) 127/83 Pulse Ox 100 O2 Delivery Room Air* O2 Flow Rate 0 FiO2 21 LABS: Laboratory: Test 01/22/25 15:47 01/22/25 14:00 01/22/25 11:36 01/22/25 11:24 Range/Units Prothrombin Time 10.1 9.6-11.6 SEC Prothromb Time International Ratio 0.95 0.85-1.15 Activated Partial Thromboplast Time 25.4 L 26.3-35.5 SEC Magnesium Level 1.70 L 1.80-2.40 mg/dL C-Reactive Protein, Quantitative 1.20 0.5-3.0 mg/L Procalcitonin < 0.05 L 0.05-0.5 ng/mL Triglycerides Level 194 30-200 mg/dL White Blood Count 12.4 H 4.8-10.8 K/uL Red Blood Count 5.08 4.00-5.50 MIL/uL Hemoglobin 12.4 12.0-16.0 g/dL Hematocrit 39.5 36-48 % Mean Corpuscular Volume 77.8 L 79-99 fL Mean Corpuscular Hemoglobin 24.4 L 27.0-33.0 pg Mean Corpuscular Hemoglobin Concent 31.4 L 32.0-36.0 g/dL Red Cell Distribution Width 21.1 H 11.0-15.5 % Platelet Count 374 130-400 K/uL Mean Platelet Volume 9.5 7.5-10.5 fL Immature Granulocyte % (Auto) 0.4 0-1 % Neutrophils (%) (Auto) 68.1 40.0-77.0 % Lymphocytes (%) (Auto) 25.0 21.0-51.0 % Monocytes (%) (Auto) 5.5 3.0-13.0 % Eosinophils (%) (Auto) 0.6 0.0-8.0 % Basophils (%) (Auto) 0.4 0.0-5.0 % Neutrophils # (Auto) 8.4 H 1.8-7.7 K/uL Lymphocytes # (Auto) 3.1 1.0-4.8 K/uL Monocytes # (Auto) 0.7 0.1-1.0 K/uL Eosinophils # (Auto) 0.08 0.00-0.70 K/uL Basophils # (Auto) 0.05 0.00-0.20 K/uL Absolute Immature Granulocyte (auto 0.05 0-1 K/uL Nucleated Red Blood Cells 0.0 0.0-0.19 % Red Blood Cell Morphology See comments Sodium Level 138 136-145 mmol/L Potassium Level 2.8 *L 3.5-5.1 mmol/L Chloride Level 99 L 101-111 mmol/L Carbon Dioxide Level 25 21-32 mmol/L Blood Urea Nitrogen 12 7-18 mg/dL Creatinine 0.9 0.5-1.0 mg/dL Glomerular Filtration Rate Calc 92 >90 mL/min Random Glucose 158 H 70-105 mg/dL Total Calcium 9.4 8.5-10.1 mg/dL Total Bilirubin 5.1 H 0.2-1.0 mg/dL Aspartate Amino Transf (AST/SGOT) 299 H 10-37 U/L Alanine Aminotransferase (ALT/SGPT) 522 H 12-78 U/L Alkaline Phosphatase 383 H 50-136 U/L Total Creatine Kinase 103 21-232 U/L Total Protein 7.9 6.0-8.3 g/dL Albumin 3.9 3.5-5.0 g/dL Lipase 9744 *H 16-77 U/L Human Chorionic Gonadotropin, Quant 0 0-5 mIU/mL Urine Color DARK-YELLOW YELLOW Urine Appearance CLOUDY H CLEAR Urine pH 7.5 5.0-8.0 Urine Specific [place] 1.014 1.001-1.031 Urine Protein 10 H NEGATIVE mg/dL Urine Glucose (UA) NEGATIVE NEGATIVE mg/dL Urine Ketones NEGATIVE NEGATIVE mg/dL Urine Occult Blood NEGATIVE NEGATIVE Urine Nitrate NEGATIVE NEGATIVE Urine Bilirubin 2 H NEGATIVE mg/dL Urine Urobilinogen 6 H 0.2-1.0 mg/dL Urine Leukocyte Esterase 250 H NEGATIVE Nava/uL Urine RBC 2-5 H 0-1 /HPF Urine WBC 6-10 H 0-1 /HPF Urine Squamous Epithelial Cells MOD 0-2 /HPF Urine Bacteria RARE None Seen /HPF Urine HCG, Qualitative NEGATIVE NEGATIVE Urine Opiates Screen NEGATIVE NEGATIVE Urine Barbiturates Screen NEGATIVE NEGATIVE Urine Phencyclidine Screen NEGATIVE NEGATIVE Urine Amphetamines Screen NEGATIVE NEGATIVE Urine Benzodiazepines Screen NEGATIVE NEGATIVE Urine Cocaine Screen NEGATIVE NEGATIVE Urine Marijuana (THC) Screen POSITIVE H NEGATIVE Current Medications Medications (Trade) Dose Ordered Sig/Jazmine Route PRN Reason Start Time Stop Time Status Last Admin Dose Admin Acetaminophen (TYLenol 325MG TAB) 650 mg Q6H PRN PO MILD PAIN (1-3) 01/22/25 15:00 02/21/25 14:59 Enoxaparin Sodium (Lovenox) 30 mg DAILY SQ 01/23/25 09:00 02/22/25 08:59 Hydromorphone HCl (DiLAUDid 0.5MG INJ) 0.5 mg Q6H PRN IVP SEVERE PAIN (7-10) 01/22/25 15:00 01/27/25 14:59 Ketorolac Tromethamine (toRADol) 15 mg Q8H PRN IV MODERATE PAIN (4-6) 01/22/25 15:00 01/27/25 14:59 01/22/25 16:15 15 MG Lactated Ringer's 1,000 ml @ 150 mls/hr Q6H40M IV 01/22/25 15:00 02/21/25 14:59 01/22/25 16:14 150 MLS/HR Magnesium Sulfate 50 ml @ 0 mls/hr PROTOCOL IV 01/22/25 15:00 02/21/25 14:59 Pantoprazole Sodium (PROTonix 40MG INJ) 40 mg DAILY IVP 01/23/25 09:00 02/22/25 08:59 Potassium Chloride 100 ml @ 100 mls/hr AD PRN IV POTASSIUM PROTOCOL 01/22/25 15:00 02/21/25 14:59 Potassium Chloride (K-Dur/Klor-Con 20meq) 20 meq AD PRN PO POTASSIUM PROTOCOL 01/22/25 15:00 02/21/25 14:59 Potassium Chloride (KCl 10% Elixir 20meq/15ml) 20 meq AD PRN PO POTASSIUM PROTOCOL 01/22/25 15:00 02/21/25 14:59 DIAGNOSTICS / RADIOLOGY: SERVICE [id number] REASON: RUQ PAIN ORDERING PHYSICIAN: NEMESIO XAVIER MD PROCEDURE: [id number] - US ABDOMINAL RUQ\LTD US ABDOMINAL RUQ\E\LTD HISTORY: Right upper quadrant and COMPARISON: None TECHNIQUE: Right upper quadrant abdominal ultrasound study was performed. FINDINGS: Liver measured 15 cm. The visualized portion of the pancreas is within normal limits. Liver is echogenic consistent with liver parenchymal disease. Gallstones are seen in the distended gallbladder. Common duct measures 8 mm. No evidence of gallbladder wall thickening is seen. Right kidney measures 10 point 4 x 4 by 4.5 cm. No hydronephrosis is seen of the right kidney. IMPRESSION: 1. Gallstones in a distended gallbladder. Ductal dilatation is seen. 2. No hydronephrosis is seen. DICTATED BY: ALONSO WILSON MD DATE: 01/22/251404 ELECTRONICALLY SIGNED BY: ALONSO WILSON MD DATE: 01/22/251407 ASSESSMENT: Acute pancreatitis secondary to gallstones, POA Acute dehydration, POA Severe hypokalemia, POA Suspected choledocholithiasis, POA Cholelithiasis, POA Urinary tract infection, POA PLAN: Patient will be admitted to medical-surgical floor under telemetry monitoring We will start patient on IV fluids with lactated Ringer's at 150 mL/hour We will keep patient on IV Protonix 40 mg daily Consultation with Gastroenterology will be requested, we will obtain MRCP to assess for choledocholithiasis, patient was noted to have dilated CBD on the abdominal ultrasound, if choledocholithiasis is confirmed, patient will need ERCP Consultation with General surgery will be requested as patient may need interval laparoscopic cholecystectomy once pancreatitis resolves this admission We will keep patient on IV Zosyn for management for UTI, patient received IV Zosyn in the ER with no side effects Patient will be kept strictly NPO today Potassium will be aggressively repleted, we will check potassium later tonight to ensure it is improving Magnesium will be repleted per protocol Pain control with IV hydromorphone for severe pain on IV Toradol for moderate pain All labs will be repeated in the morning including CBC, CMP, magnesium Anticipate hospitalization for at least 48-72 hours GI prophylaxis with Protonix, DVT prophylaxis with Lovenox Date of service: 01/22/2025 Plan of care was discussed with patient at bedside, Siva Johnson MD Advanced Care Planning: Which of the following were discussed: Hospice care: Yes __ No _X_ Therapeutic options: Yes _X_ No __ Advance directives: Yes __X No __ Other discussions: Discussed with who?: Patient Voluntary nature of this service was explained to the patient? Yes _x_ No __ Amount of time spent: 20 minutes SIVA JOHNSON MD Jan 22, 2025 17:20
--- NOTE | 2025-01-22 17:37 | NUR ---
report given to Mrs. Brittanie HAMM. Notify Mrs. Gu of pending consults, discussed patients plan of care and pain management.
--- NOTE | 2025-01-22 17:38 | NUR ---
vital signs before transfer blood pressure 112/80 mmHg pulse 67 p/min o2 Saturation 98% temperature 98.2 respirations 17 p/min
[2025-01-22] MEDS: MAGNESIUM 2GM PREMIX 50ML 50 ML IV SCH (17:49)
--- NOTE | 2025-01-22 17:50 | NUR ---
covered magnesium following magnesium protocol. Placed 20g on right wrist.
--- NOTE | 2025-01-22 18:09 | HMCIMG ---
MRCP(ABDWO)CHOLANGIOPANCREATOG HISTORY: Pancreatitis COMPARISON: Ultrasound from the same day TECHNIQUE: MRI of the abdomen was performed utilizing multiple pulse sequences in axial, coronal and sagittal planes. Patient was not given contrast through intravenous route. MRCP was obtained. FINDINGS: Liver measures 16 cm. Spleen measured 12 cm. A jejunal glands and pancreas are unremarkable. Common duct is dilated measuring 11 mm. Gallstones are seen in the gallbladder. No definite MR evidence of common duct stone is seen. Both kidneys are seen without hydronephrosis. There is small left perinephric fluid collection. Small ascites fluid is seen. The nonaggressive pancreas are unremarkable. IMPRESSION: 1. Gallstones are seen in the distended gallbladder. Common duct is dilated measuring 11 mm. No MR evidence of common duct stone is seen however and clinical correlation is recommended. Tiny ascites is seen.
[2025-01-22 18:15] VITALS: BP 118/65; PULSE 72; RESP 16; TEMP 97.8
[2025-01-22 20:00] VITALS: BP 119/63; PULSE 70; RESP 16; TEMP 98.2
[2025-01-22 20:20] VITALS: O2SAT 97
[2025-01-22 21:01] LABS: CREATININE 0.8 mg/dL (0.5-1.0); GLOMERULAR FILTR. RATE CALC 106.0 mL/min (>90); GLUCOSE,RANDOM 117.0 mg/dL (70-105); SODIUM SERUM 137.0 mmol/L (136-145); UREA NITROGEN, BLOOD 12.0 mg/dL (7-18)
[2025-01-22] MEDS: ZOSYN 3.375GM +NS 50ML IVPB SCH (22:00)
[2025-01-22 23:54] VITALS: BP 117/68; PULSE 89; RESP 16; TEMP 99
[2025-01-23] VITALS (7 sets, daily range): BP systolic 110–116; BP diastolic 63–80; PULSE 73–83; RESP 16–18; TEMP 98.2–98.9; O2SAT 99–100
[2025-01-23] MEDS: ZOSYN 3.375GM +NS 50ML IVPB SCH (06:03)
[2025-01-23 06:43] LABS: IMMATURE GRANULOCYTE ABSOLUTE 0.04 K/uL (0-1); NUCLEATED RED BLOOD CELLS 0.0 % (0.0-0.19); PLATELET COUNT (AUTO) 302 K/uL (130-400); RED BLOOD CELL COUNT(AUTO) 4.81 MIL/uL (4.00-5.50); RED CELL DISTRIBUTION WIDTH 21.3 % (11.0-15.5); WHITE BLOOD COUNT (AUTO) 8.4 K/uL (4.8-10.8)
[2025-01-23 07:05] LABS: ASPARTATE AMINOTRANSFERASE 292.0 U/L (10-37); CREATININE 0.9 mg/dL (0.5-1.0); GLOMERULAR FILTR. RATE CALC 92.0 mL/min (>90); GLUCOSE,RANDOM 96.0 mg/dL (70-105); SODIUM SERUM 142.0 mmol/L (136-145); TOTAL PROTEIN, SERUM 6.4 g/dL (6.0-8.3); UREA NITROGEN, BLOOD 13.0 mg/dL (7-18)
--- NOTE | 2025-01-23 07:30 | CONS ---
GASTROENTEROLOGY CONSULTATION NOTE Date of Consultation: Jan 22, 2025 Time of Consultation: 17:30 History of Present Illness: [ ] Review of Systems: CONSTITUTIONAL: No malaise or change in sensation of wellbeing. ENMT: No rhinorrhea, otorrhea, sinus pain, ear ache. CARDIOVASCULAR: No angina, palpitations, orthopnea or paroxysmal dyspnea. RESPIRATORY: No SOB. GASTROINTESTINAL: No abdominal pain, nausea, vomiting, diarrhea, hematemesis, melena or change in the patient's habitual bowel movements consistency/number. GENITOURINARY: No dysuria, hematuria or change in bladder continence. MUSCULOSKELETAL: No new muscle pain or decrease in muscular strength. No new joint swelling, redness or tenderness. SKIN: No new rash. Past Medical History: [ ] Past Surgical History: [ ] Past Social History: [ ] Family History: [ ] Coded Allergies: No Known Allergies (Unverified Allergy, Unknown, 03/24/22) Physical Exam: GEN: Awake, alert, oriented in person, time and place, and in no acute distress. HEENT: No sinus tenderness. Tympanic membranes were not examined. No rhinorrhea. Oral pharyngeal mucosa is pink, moist and within normal limits. Neck is supple with no cervical lymphadenopathy, thyromegaly or JVD. CHEST: Inspection, palpation and percussion of the chest were unremarkable. Lung auscultation revealed normal breath sounds bilaterally. CARDIAC: PMI is within normal limits. Heart sounds are regular. Normal S1, S2. No gallop or murmur. ABD: Soft, non-tender and not distended. No peritoneal signs on palpation. No organomegaly. Normal bowel sounds. EXT: No cyanosis or clubbing. No edema. SKIN: Intact. No rashes. JOINTS: No evidence of synovitis or acute arthritis. NEURO: Alert and oriented to name, place and person. Cranial nerve examination is unremarkable. No focal motor deficits. Normal speech. Gait is normal. Strength is normal. Vital Sign (Last 24 Hours) 01/22/25 01/23/25 20:20 04:00 Temp 98.2 Pulse 73 Resp 16 B/P (MAP) 110/70 Pulse Ox 98 O2 Delivery Room Air O2 Flow Rate 0 FiO2 21 Intake & Output (last 24hrs) 01/22/25 01/22/25 01/23/25 15:00 23:00 07:00 Intake Total 50.0 ml 1550.0 ml Balance 50.0 ml 1550.0 ml Laboratory: [ ] Laboratory: Test 01/23/25 06:20 01/22/25 15:47 01/22/25 14:00 01/22/25 11:36 Range/Units White Blood Count 8.4 # 4.8-10.8 K/uL Red Blood Count 4.81 4.00-5.50 MIL/uL Hemoglobin 11.8 L 12.0-16.0 g/dL Hematocrit 37.7 36-48 % Mean Corpuscular Volume 78.4 L 79-99 fL Mean Corpuscular Hemoglobin 24.5 L 27.0-33.0 pg Mean Corpuscular Hemoglobin Concent 31.3 L 32.0-36.0 g/dL Red Cell Distribution Width 21.3 H 11.0-15.5 % Platelet Count 302 130-400 K/uL Mean Platelet Volume 9.7 7.5-10.5 fL Immature Granulocyte % (Auto) 0.5 0-1 % Neutrophils (%) (Auto) 72.8 40.0-77.0 % Lymphocytes (%) (Auto) 18.9 L 21.0-51.0 % Monocytes (%) (Auto) 7.5 3.0-13.0 % Eosinophils (%) (Auto) 0.2 0.0-8.0 % Basophils (%) (Auto) 0.1 0.0-5.0 % Neutrophils # (Auto) 6.1 1.8-7.7 K/uL Lymphocytes # (Auto) 1.6 1.0-4.8 K/uL Monocytes # (Auto) 0.6 0.1-1.0 K/uL Eosinophils # (Auto) 0.02 0.00-0.70 K/uL Basophils # (Auto) 0.01 0.00-0.20 K/uL Absolute Immature Granulocyte (auto 0.04 0-1 K/uL Nucleated Red Blood Cells 0.0 0.0-0.19 % Sodium Level 142 136-145 mmol/L Potassium Level 3.4 L 3.5-5.1 mmol/L Chloride Level 106 101-111 mmol/L Carbon Dioxide Level 27 21-32 mmol/L Blood Urea Nitrogen 13 7-18 mg/dL Creatinine 0.9 0.5-1.0 mg/dL Glomerular Filtration Rate Calc 92 >90 mL/min Random Glucose 96 70-105 mg/dL Total Calcium 9.0 8.5-10.1 mg/dL Magnesium Level 2.20 1.80-2.40 mg/dL Total Bilirubin 5.0 H 0.2-1.0 mg/dL Aspartate Amino Transf (AST/SGOT) 292 H 10-37 U/L Alanine Aminotransferase (ALT/SGPT) 447 H 12-78 U/L Alkaline Phosphatase 355 H 50-136 U/L Total Protein 6.4 6.0-8.3 g/dL Albumin 3.0 #L 3.5-5.0 g/dL Lipase 1476 *H 16-77 U/L Erythrocyte Sedimentation Rate 12 0-20 MM/HR Prothrombin Time 10.1 9.6-11.6 SEC Prothromb Time International Ratio 0.95 0.85-1.15 Activated Partial Thromboplast Time 25.4 L 26.3-35.5 SEC C-Reactive Protein, Quantitative 1.20 0.5-3.0 mg/L Procalcitonin < 0.05 L 0.05-0.5 ng/mL Triglycerides Level 194 30-200 mg/dL Red Blood Cell Morphology See comments Total Creatine Kinase 103 21-232 U/L Human Chorionic Gonadotropin, Quant 0 0-5 mIU/mL Test 01/22/25 11:24 Range/Units Urine Color DARK-YELLOW YELLOW Urine Appearance CLOUDY H CLEAR Urine pH 7.5 5.0-8.0 Urine Specific [place] 1.014 1.001-1.031 Urine Protein 10 H NEGATIVE mg/dL Urine Glucose (UA) NEGATIVE NEGATIVE mg/dL Urine Ketones NEGATIVE NEGATIVE mg/dL Urine Occult Blood NEGATIVE NEGATIVE Urine Nitrate NEGATIVE NEGATIVE Urine Bilirubin 2 H NEGATIVE mg/dL Urine Urobilinogen 6 H 0.2-1.0 mg/dL Urine Leukocyte Esterase 250 H NEGATIVE Nava/uL Urine RBC 2-5 H 0-1 /HPF Urine WBC 6-10 H 0-1 /HPF Urine Squamous Epithelial Cells MOD 0-2 /HPF Urine Bacteria RARE None Seen /HPF Urine HCG, Qualitative NEGATIVE NEGATIVE Urine Opiates Screen NEGATIVE NEGATIVE Urine Barbiturates Screen NEGATIVE NEGATIVE Urine Phencyclidine Screen NEGATIVE NEGATIVE Urine Amphetamines Screen NEGATIVE NEGATIVE Urine Benzodiazepines Screen NEGATIVE NEGATIVE Urine Cocaine Screen NEGATIVE NEGATIVE Urine Marijuana (THC) Screen POSITIVE H NEGATIVE Current Medications Medications (Trade) Dose Ordered Sig/Jazmine Route PRN Reason Start Time Stop Time Status Last Admin Dose Admin Acetaminophen (TYLenol 325MG TAB) 650 mg Q6H PRN PO MILD PAIN (1-3) 01/22/25 15:00 02/21/25 14:59 Enoxaparin Sodium (Lovenox) 30 mg DAILY SQ 01/23/25 09:00 01/22/25 19:51 DC Enoxaparin Sodium (Lovenox) 30 mg HS SQ 01/23/25 21:00 02/22/25 08:59 Hydromorphone HCl (DiLAUDid 0.5MG INJ) 0.5 mg Q6H PRN IVP SEVERE PAIN (7-10) 01/22/25 15:00 01/27/25 14:59 01/22/25 18:36 0.5 MG Ketorolac Tromethamine (toRADol) 15 mg Q8H PRN IV MODERATE PAIN (4-6) 01/22/25 15:00 01/27/25 14:59 01/23/25 01:38 15 MG Lactated Ringer's 1,000 ml @ 150 mls/hr Q6H40M IV 01/22/25 15:00 02/21/25 14:59 01/23/25 01:39 150 MLS/HR Magnesium Sulfate 50 ml @ 0 mls/hr PROTOCOL IV 01/22/25 15:00 02/21/25 14:59 01/22/25 17:49 25 MLS/HR Pantoprazole Sodium (PROTonix 40MG INJ) 40 mg DAILY IVP 01/23/25 09:00 02/22/25 08:59 Piperacillin Sod/ Tazobactam Sod (Zosyn 3.375gm+NS 50ml) 3.375 gm Q8H IVPB 01/23/25 06:00 02/02/25 05:59 01/23/25 06:03 3.375 GM Piperacillin Sod/ Tazobactam Sod (Zosyn 3.375gm+NS 50ml) 3.375 gm TID IVPB 01/22/25 21:00 01/23/25 04:07 DC 01/22/25 22:00 3.375 GM Potassium Chloride 100 ml @ 100 mls/hr AD PRN IV POTASSIUM PROTOCOL 01/22/25 15:00 02/21/25 14:59 Potassium Chloride (K-Dur/Klor-Con 20meq) 20 meq AD PRN PO POTASSIUM PROTOCOL 01/22/25 15:00 02/21/25 14:59 Potassium Chloride (KCl 10% Elixir 20meq/15ml) 20 meq AD PRN PO POTASSIUM PROTOCOL 01/22/25 15:00 02/21/25 14:59 Diagnostics / Radiology: [COPY/PASTE HERE IF NO REPORTS PLEASE DELETE SECTION] Assessment: Acute pancreatitis Plan: Await MRCP Trend 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
[2025-01-23] MEDS ORDERED: ENOXAPARIN SODIUM 30 MG/0.3 ML SQ SCH (09:00)
[2025-01-23] MEDS ORDERED: MAGNESIUM 2GM PREMIX 50ML 50 ML IV SCH (09:30)
--- NOTE | 2025-01-23 09:32 | PN ---
[facility] PROGRESS NOTE Date of Service: Jan 23, 2025 Time of Service: 09: Attending Dr Manrique SUBJECTIVE: [ 01/22 This is a 24-year-old female with history of gastritis who presented to the ER for further evaluation of epigastric abdominal pain with nausea and vomiting. Symptoms have been ongoing for the past five days. She has had multiple episodes of nausea and vomiting and poor oral intake. Pain is 10/10 in severity. Denies previous history of major medical comorbidities otherwise. Denies any cardiac or pulmonary comorbidities. On presentation to the hospital, patient was noted to be, afebrile and hemodynamically stable. Labs [place] [address], hemoglobin of 12.4, platelet count of 368199. BMP remarkable for sodium of 138, potassium of 2.8, CO2 of 25, creatinine of 0.9, total bilirubin of 5.1, AST of 299, ALT of 522, alkaline phosphatase of 383, magnesium of 1.7, and lipase of 9744. Patient will be admitted for further treatment and management of acute pancreatitis secondary to likely choledocholithiasis. Consultation with GI and General surgery will be requested this admission. Patient also noted to have cloudy urine with significant UTI, patient will be placed on IV antibiotics for management of UTI. We will see how patient progresses closely in the next 48-72 hours. 01/23 patient was seen by nurse practitioner and physician during rounding in room 306. Most recent lipase 1476. Ultrasound abdomen showed gallstones in the distended gallbladder. Ductal dilation is seen no hydronephrosis. MRCP showed gallstones in the distended gallbladder. Common duct is dilated measuring 11 mm. No MR evidence of common duct stones is seen however and clinically correlation is recommended. Tiny ascites is seen. At this moment we are pending further evaluation/recommendations by GI and surgeon. We will continue to monitor patient in the meantime. A.m. labs] REVIEW OF SYSTEMS CONSTITUTIONAL: Denies fevers, chills, or night sweats. No unintentional weight loss reported. NEUROLOGICAL: Denies headache, amaurosis fugax, motor weakness, sensory deficit, vertigo/spinning sensation, gait abnormalities, or tremors. ENT: No hearing loss, otalgia, otorrhea, rhinitis, rhinorrhea, hoarseness, or sore throat. CARDIOVASCULAR: Denies any exertional angina, dyspnea on exertion, orthopnea, paroxysmal nocturnal dyspnea, palpitations, life-threatening arrhythmias, claudi cation. PULMONARY: Denies any shortness of breath, cough, phlegm/sputum, hemoptysis, pleuritic chest pain. SLEEP: Denies morning headaches, daytime somnolence or napping. Denies difficulty falling asleep, staying asleep, waking from sleep. Denies knowledge of snoring. GASTROINTESTINAL: nausea, vomiting, severe abdominal pain involving the epigastric region GENITOURINARY: Denies frequency, urgency, nocturia, hematuria or incontinence (Storage/Irritative symptoms.) Low urinary stream, straining to void, urinary intermittency or hesitancy, splitting of the voiding stream, terminal dribbling. ENDOCRINOLOGIC: Denies polyuria, polydipsia, polyphagia or heat/cold intolerances. HEMATOLOGIC: Denies thrombophilia/previous clots, or coagulopathy/bleeding disorders. ONCOLOGIC: Denies personal history of malignancy. DERMATOLOGIC: Denies rashes or pruritus. PSYCHIATRIC: Denies any suicidal or homicidal ideation. Denies hallucinations. PHYSICAL EXAM GENERAL APPEARANCE: The patient is awake, alert, and oriented, in no acute cardiopulmonary distress. NEUROLOGICAL: Cranial nerves II-XII grossly intact. Motor is 5/5 in bilateral upper and lower extremities proximal to distal. No sensory deficits. HEENT: Face is symmetric. Pupils are equal and reactive. Extraocular movements are intact. NECK: Supple. No JVD. No thyromegaly. No submental, submandibular, pre-/pos tauricular, occipital or supraclavicular lymphadenopathy. CHEST: Normal chest expansion. No Telemetry. LUNGS: Absence of any rales, rhonchi or any wheezing. CARDIOVASCULAR: Regular. S1 and S2 normal. No appreciable rubs, murmurs or gallops. ABDOMEN: Soft, nontender, tenderness to palpation involving the epigastric region : Deferred. No Browning. EXTREMITIES: Non-edematous and not cyanotic. No clubbing. Good capillary refill. SKIN: No skin breakdown. Vital Signs (last 8hr) Date Time Temp Pulse Resp B/P (MAP) Pulse Ox O2 Delivery O2 Flow Rate FiO2 01/23/25 08:00 98.4 83 18 116/63 100 Room Air 21 01/23/25 04:00 98.2 73 16 110/70 98 Room Air LABS: Laboratory: Test 01/23/25 06:20 01/22/25 15:47 01/22/25 14:00 01/22/25 11:36 Range/Units White Blood Count 8.4 # 4.8-10.8 K/uL Red Blood Count 4.81 4.00-5.50 MIL/uL Hemoglobin 11.8 L 12.0-16.0 g/dL Hematocrit 37.7 36-48 % Mean Corpuscular Volume 78.4 L 79-99 fL Mean Corpuscular Hemoglobin 24.5 L 27.0-33.0 pg Mean Corpuscular Hemoglobin Concent 31.3 L 32.0-36.0 g/dL Red Cell Distribution Width 21.3 H 11.0-15.5 % Platelet Count 302 130-400 K/uL Mean Platelet Volume 9.7 7.5-10.5 fL Immature Granulocyte % (Auto) 0.5 0-1 % Neutrophils (%) (Auto) 72.8 40.0-77.0 % Lymphocytes (%) (Auto) 18.9 L 21.0-51.0 % Monocytes (%) (Auto) 7.5 3.0-13.0 % Eosinophils (%) (Auto) 0.2 0.0-8.0 % Basophils (%) (Auto) 0.1 0.0-5.0 % Neutrophils # (Auto) 6.1 1.8-7.7 K/uL Lymphocytes # (Auto) 1.6 1.0-4.8 K/uL Monocytes # (Auto) 0.6 0.1-1.0 K/uL Eosinophils # (Auto) 0.02 0.00-0.70 K/uL Basophils # (Auto) 0.01 0.00-0.20 K/uL Absolute Immature Granulocyte (auto 0.04 0-1 K/uL Nucleated Red Blood Cells 0.0 0.0-0.19 % Sodium Level 142 136-145 mmol/L Potassium Level 3.4 L 3.5-5.1 mmol/L Chloride Level 106 101-111 mmol/L Carbon Dioxide Level 27 21-32 mmol/L Blood Urea Nitrogen 13 7-18 mg/dL Creatinine 0.9 0.5-1.0 mg/dL Glomerular Filtration Rate Calc 92 >90 mL/min Random Glucose 96 70-105 mg/dL Total Calcium 9.0 8.5-10.1 mg/dL Magnesium Level 2.20 1.80-2.40 mg/dL Total Bilirubin 5.0 H 0.2-1.0 mg/dL Aspartate Amino Transf (AST/SGOT) 292 H 10-37 U/L Alanine Aminotransferase (ALT/SGPT) 447 H 12-78 U/L Alkaline Phosphatase 355 H 50-136 U/L Total Protein 6.4 6.0-8.3 g/dL Albumin 3.0 #L 3.5-5.0 g/dL Lipase 1476 *H 16-77 U/L Erythrocyte Sedimentation Rate 12 0-20 MM/HR Prothrombin Time 10.1 9.6-11.6 SEC Prothromb Time International Ratio 0.95 0.85-1.15 Activated Partial Thromboplast Time 25.4 L 26.3-35.5 SEC C-Reactive Protein, Quantitative 1.20 0.5-3.0 mg/L Procalcitonin < 0.05 L 0.05-0.5 ng/mL Triglycerides Level 194 30-200 mg/dL Red Blood Cell Morphology See comments Total Creatine Kinase 103 21-232 U/L Human Chorionic Gonadotropin, Quant 0 0-5 mIU/mL Test 01/22/25 11:24 Range/Units Urine Color DARK-YELLOW YELLOW Urine Appearance CLOUDY H CLEAR Urine pH 7.5 5.0-8.0 Urine Specific [place] 1.014 1.001-1.031 Urine Protein 10 H NEGATIVE mg/dL Urine Glucose (UA) NEGATIVE NEGATIVE mg/dL Urine Ketones NEGATIVE NEGATIVE mg/dL Urine Occult Blood NEGATIVE NEGATIVE Urine Nitrate NEGATIVE NEGATIVE Urine Bilirubin 2 H NEGATIVE mg/dL Urine Urobilinogen 6 H 0.2-1.0 mg/dL Urine Leukocyte Esterase 250 H NEGATIVE Nava/uL Urine RBC 2-5 H 0-1 /HPF Urine WBC 6-10 H 0-1 /HPF Urine Squamous Epithelial Cells MOD 0-2 /HPF Urine Bacteria RARE None Seen /HPF Urine HCG, Qualitative NEGATIVE NEGATIVE Urine Opiates Screen NEGATIVE NEGATIVE Urine Barbiturates Screen NEGATIVE NEGATIVE Urine Phencyclidine Screen NEGATIVE NEGATIVE Urine Amphetamines Screen NEGATIVE NEGATIVE Urine Benzodiazepines Screen NEGATIVE NEGATIVE Urine Cocaine Screen NEGATIVE NEGATIVE Urine Marijuana (THC) Screen POSITIVE H NEGATIVE Current Medications Medications (Trade) Dose Ordered Sig/Jazmine Route PRN Reason Start Time Stop Time Status Last Admin Dose Admin Acetaminophen (TYLenol 325MG TAB) 650 mg Q6H PRN PO MILD PAIN (1-3) 01/22/25 15:00 02/21/25 14:59 Enoxaparin Sodium (Lovenox) 30 mg DAILY SQ 01/23/25 09:00 01/22/25 19:51 DC Enoxaparin Sodium (Lovenox) 30 mg HS SQ 01/23/25 21:00 02/22/25 08:59 Hydromorphone HCl (DiLAUDid 0.5MG INJ) 0.5 mg Q6H PRN IVP SEVERE PAIN (7-10) 01/22/25 15:00 01/27/25 14:59 01/22/25 18:36 0.5 MG Ketorolac Tromethamine (toRADol) 15 mg Q8H PRN IV MODERATE PAIN (4-6) 01/22/25 15:00 01/27/25 14:59 01/23/25 01:38 15 MG Lactated Ringer's 1,000 ml @ 150 mls/hr Q6H40M IV 01/22/25 15:00 02/21/25 14:59 01/23/25 01:39 150 MLS/HR Magnesium Sulfate 50 ml @ 0 mls/hr PROTOCOL IV 01/22/25 15:00 02/21/25 14:59 01/22/25 17:49 25 MLS/HR Pantoprazole Sodium (PROTonix 40MG INJ) 40 mg DAILY IVP 01/23/25 09:00 02/22/25 08:59 01/23/25 09:21 40 MG Piperacillin Sod/ Tazobactam Sod (Zosyn 3.375gm+NS 50ml) 3.375 gm Q8H IVPB 01/23/25 06:00 02/02/25 05:59 01/23/25 06:03 3.375 GM Piperacillin Sod/ Tazobactam Sod (Zosyn 3.375gm+NS 50ml) 3.375 gm TID IVPB 01/22/25 21:00 01/23/25 04:07 DC 01/22/25 22:00 3.375 GM Potassium Chloride 100 ml @ 100 mls/hr AD PRN IV POTASSIUM PROTOCOL 01/22/25 15:00 02/21/25 14:59 Potassium Chloride (K-Dur/Klor-Con 20meq) 20 meq AD PRN PO POTASSIUM PROTOCOL 01/22/25 15:00 02/21/25 14:59 Potassium Chloride (KCl 10% Elixir 20meq/15ml) 20 meq AD PRN PO POTASSIUM PROTOCOL 01/22/25 15:00 02/21/25 14:59 DIAGNOSTICS / RADIOLOGY: [ ] ASSESSMENT: Acute pancreatitis secondary to gallstones, POA Acute dehydration, POA Severe hypokalemia, POA Suspected choledocholithiasis, POA Cholelithiasis, POA Acute complicated cystitis POA Multifactorial anemia POA Toxicology positive for marijuana POA PLAN: Continue in medical-surgical floor under telemetry monitoring Continue lactated Ringer's at 150 mL/hour Continue IV Protonix 40 mg daily MRCP done 01/22/2025 Pending further evaluation/recommendations by GI Consultation with General surgery will be requested as patient may need interval laparoscopic cholecystectomy once pancreatitis resolves this admission UA positive for leukocytosis continue Zosyn Patient will receive 20 mEq of potassium Patient will receive 2 g of magnesium Pain control with IV hydromorphone for severe pain on IV Toradol for moderate pain A.m. labs Anticipate hospitalization for at least 48-72 hours ATTESTATION BY PHYSICIAN I have seen and examined the patient. I reviewed the documentation, medical decision making, and treatment plan as noted by the mid-level provider above. I agree with the findings and plan of care. ISABELLA Hicks MD [employer] Jan 23, 2025 09:32
--- NOTE | 2025-01-23 10:50 | NUR ---
DCP: HOME Pt currently lives with Karlos Hay [phone]. Pt does not report insecurities with food, skilled nursing, and/or utilities. Pt does not have DME, home health, or provider services. Pt is able to complete ADLs independently. Pt does not have a PCP, SW left her community resources. At [place] pt will want to go home and family will assist with transportation. Addendum: 01/23/25 at 1053 by PHILIP RODARTE SS Amended: Links added.
--- NOTE | 2025-01-23 13:32 | CONS ---
GENERAL SURGERY CONSULTATION NOTE DATE OF CONSULTATION: Jan 23, 2025 TIME OF CONSULTATION: 13:29 CONSULTING SERVICE: Al Stockton MD REQUESTING PHYSICAIN: [ ] REASON FOR CONSULTATION: [ ] HISTORY OF PRESENT ILLNESS: 24-year-old female one month . Starter the last Sunday with abdominal pain that was on and off. Yesterday become constant at the epigastrium with nausea and vomiting. Patient is still in very severe pain. No more nausea nor vomiting but has been NPO PAST MEDICAL HISTORY: None PAST SURGICAL HISTORY: None FAMILY HISTORY: [ ] SOCIAL HISTORY: Denies drugs or tobacco Current Medications Medications (Trade) Dose Ordered Sig/Jazmine Route Start Time Stop Time Status Last Admin Dose Admin Enoxaparin Sodium (Lovenox) 30 mg DAILY SQ 01/23/25 09:00 01/22/25 19:51 DC Enoxaparin Sodium (Lovenox) 30 mg HS SQ 01/23/25 21:00 02/22/25 08:59 Lactated Ringer's 1,000 ml @ 150 mls/hr Q6H40M IV 01/22/25 15:00 02/21/25 14:59 01/23/25 09:43 150 MLS/HR Magnesium Sulfate 50 ml @ 0 mls/hr PROTOCOL IV 01/22/25 15:00 01/23/25 09:36 DC 01/22/25 17:49 25 MLS/HR Magnesium Sulfate 50 ml @ 0 mls/hr PROTOCOL IV 01/23/25 09:30 02/22/25 09:29 Pantoprazole Sodium (PROTonix 40MG INJ) 40 mg DAILY IVP 01/23/25 09:00 02/22/25 08:59 01/23/25 09:21 40 MG Piperacillin Sod/ Tazobactam Sod (Zosyn 3.375gm+NS 50ml) 3.375 gm Q8H IVPB 01/23/25 06:00 02/02/25 05:59 01/23/25 06:03 3.375 GM Piperacillin Sod/ Tazobactam Sod (Zosyn 3.375gm+NS 50ml) 3.375 gm TID IVPB 01/22/25 21:00 01/23/25 04:07 DC 01/22/25 22:00 3.375 GM Allergies: Coded Allergies: No Known Allergies (Unverified Allergy, Unknown, 03/24/22) REVIEW OF SYSTEMS: HEALTH COMMUNICATIONS SPECIALIST: [Denies headaches or blurring of vision.] RESP: [No cough, chest pain or SOB. CVS: [No palpitaions. GI: As per HPI RENATO: [No dysuria or hematuria. Musculoskeletal: [No swelling or joint pain BACK: [No pain or swelling All other systems are reviewed and essentially negative pertinent positives in HPI. PHYSICAL EXAMINATION: GENERAL: [Patient is lying comfortably in bed, not in any obvious distress. HEAD: [Normal with no signs of head trauma. EYES: not jaundiced NECK: Trachea midline LUNGS: No respiratory distress HEART: [Regular rate and rhythm. ABD: [Bowel sounds present,soft, tenderness in the epigastrium and upper abdomen. No rebound no peritoneal signs EXT: [ Warm soft, non tender. SKIN: [ No rashes or lesions. NEURO: [ Awake Alert and oriented x3. Vital Signs (last 8hr) Date Time Temp Pulse Resp B/P (MAP) Pulse Ox O2 Delivery O2 Flow Rate FiO2 01/23/25 11:48 99.0 73 18 116/74 99 Room Air 21 01/23/25 08:00 98.4 83 18 116/63 100 Room Air 21 LABORATORY: [ ] Hematology Labs: Test 01/23/25 06:20 01/22/25 15:47 01/22/25 11:36 Range/Units White Blood Count 8.4 # 4.8-10.8 K/uL Red Blood Count 4.81 4.00-5.50 MIL/uL Hemoglobin 11.8 L 12.0-16.0 g/dL Hematocrit 37.7 36-48 % Mean Corpuscular Volume 78.4 L 79-99 fL Mean Corpuscular Hemoglobin 24.5 L 27.0-33.0 pg Mean Corpuscular Hemoglobin Concent 31.3 L 32.0-36.0 g/dL Red Cell Distribution Width 21.3 H 11.0-15.5 % Platelet Count 302 130-400 K/uL Mean Platelet Volume 9.7 7.5-10.5 fL Immature Granulocyte % (Auto) 0.5 0-1 % Neutrophils (%) (Auto) 72.8 40.0-77.0 % Lymphocytes (%) (Auto) 18.9 L 21.0-51.0 % Monocytes (%) (Auto) 7.5 3.0-13.0 % Eosinophils (%) (Auto) 0.2 0.0-8.0 % Basophils (%) (Auto) 0.1 0.0-5.0 % Neutrophils # (Auto) 6.1 1.8-7.7 K/uL Lymphocytes # (Auto) 1.6 1.0-4.8 K/uL Monocytes # (Auto) 0.6 0.1-1.0 K/uL Eosinophils # (Auto) 0.02 0.00-0.70 K/uL Basophils # (Auto) 0.01 0.00-0.20 K/uL Absolute Immature Granulocyte (auto 0.04 0-1 K/uL Nucleated Red Blood Cells 0.0 0.0-0.19 % Erythrocyte Sedimentation Rate 12 0-20 MM/HR Red Blood Cell Morphology See comments Chemistry Labs: Test 01/23/25 06:20 01/22/25 15:47 01/22/25 14:00 01/22/25 11:36 Range/Units Sodium Level 142 136-145 mmol/L Potassium Level 3.4 L 3.5-5.1 mmol/L Chloride Level 106 101-111 mmol/L Carbon Dioxide Level 27 21-32 mmol/L Blood Urea Nitrogen 13 7-18 mg/dL Creatinine 0.9 0.5-1.0 mg/dL Glomerular Filtration Rate Calc 92 >90 mL/min Random Glucose 96 70-105 mg/dL Total Calcium 9.0 8.5-10.1 mg/dL Magnesium Level 2.20 1.80-2.40 mg/dL Total Bilirubin 5.0 H 0.2-1.0 mg/dL Aspartate Amino Transf (AST/SGOT) 292 H 10-37 U/L Alanine Aminotransferase (ALT/SGPT) 447 H 12-78 U/L Alkaline Phosphatase 355 H 50-136 U/L Total Protein 6.4 6.0-8.3 g/dL Albumin 3.0 #L 3.5-5.0 g/dL Lipase 1476 *H 16-77 U/L C-Reactive Protein, Quantitative 1.20 0.5-3.0 mg/L Procalcitonin < 0.05 L 0.05-0.5 ng/mL Triglycerides Level 194 30-200 mg/dL Total Creatine Kinase 103 21-232 U/L Human Chorionic Gonadotropin, Quant 0 0-5 mIU/mL Coagulation Labs: Test 01/22/25 15:47 Range/Units Prothrombin Time 10.1 9.6-11.6 SEC Prothromb Time International Ratio 0.95 0.85-1.15 Activated Partial Thromboplast Time 25.4 L 26.3-35.5 SEC DIAGNOSTICS / RADIOLOGY: [Copy/Paste Echos/Imaging Report here] ASSESSMENT: Patient with acute biliary pancreatitis. PLAN: At this time patient we will continue NPO and with IV fluids to allow the pancreatitis to improve. Continue to monitor lipase trends. We did discuss that she will need a cholecystectomy prior to discharge. But she is not ready for that yet. ASHA DILL MD Jan 23, 2025 13:32
[2025-01-23] MEDS: ENOXAPARIN SODIUM 30 MG/0.3 ML SQ SCH (20:50)
[2025-01-24] VITALS (27 sets, daily range): BP systolic 102–139; BP diastolic 56–97; PULSE 65–102; RESP 16–20; TEMP 98–99.5; O2SAT 95
[2025-01-24] MEDS ORDERED: IOHEXOL-350 50ML VIAL IV ONE (07:42)
[2025-01-24] MEDS ORDERED: SUCCINYLCHOLINE CHLORIDE 20 MG/ML 10 ML VIAL ONE (07:57)
[2025-01-24] MEDS ORDERED: MIDAZOLAM HCL 1 MG/ML 2ML VIAL ONE (07:59)
--- NOTE | 2025-01-24 08:44 | PN ---
[facility] PROGRESS NOTE Date of Service: Jan 24, 2025 Time of Service: 08:44 SUBJECTIVE: [The patient is a 24-year-old female with a history of gastritis who presented to the emergency room with severe epigastric abdominal pain, accompanied by nausea and vomiting, persisting for five days. She reported multiple episodes of vomiting and poor oral intake, with the pain rated at 10 out of 10 in severity. She has no significant past medical history or known cardiac or pulmonary conditions. Upon arrival at the hospital, she was afebrile and hemodynamically stable. Initial laboratory tests revealed an elevated white blood cell count of 12,400, normal hemoglobin, and a platelet count of 374,000. Her basic metabolic panel showed a low potassium level of 2.8, with other electrolytes within normal limits. Liver function tests were notably elevated, with a total bilirubin of 5.1, AST of 299, ALT of 522, and alkaline phosphatase of 383. Her lipase level was significantly elevated at 9,744, suggesting acute pancreatitis, likely secondary to choledocholithiasis. Additionally, she was found to have cloudy urine indicative of a urinary tract infection, for which she was started on intravenous antibiotics. The patient was admitted for further management, with consultations requested from gastroenterology and general surgery. Over the next 48-72 hours, she was closely monitored. On the following day, her lipase level had decreased to 1,476. An abdominal ultrasound and MRCP confirmed the presence of gallstones in a distended gallbladder and a dilated common bile duct measuring 11 mm, though no stones were visualized in the duct. Tiny ascites were also noted. Despite ongoing abdominal pain, the patient began tolerating a clear liquid diet. She remains under the care of Dr. Mendes, with plans for an ERCP to further evaluate and manage her condition. The team continues to await further recommendations from the consulting specialists while monitoring her progress. ] REVIEW OF SYSTEMS CONSTITUTIONAL: Denies fevers, chills, or night sweats. No unintentional weight loss reported. NEUROLOGICAL: Denies headache, amaurosis fugax, motor weakness, sensory deficit, vertigo/spinning sensation, gait abnormalities, or tremors. ENT: No hearing loss, otalgia, otorrhea, rhinitis, rhinorrhea, hoarseness, or sore throat. CARDIOVASCULAR: Denies any exertional angina, dyspnea on exertion, orthopnea, paroxysmal nocturnal dyspnea, palpitations, life-threatening arrhythmias, claudication. PULMONARY: Denies any shortness of breath, cough, phlegm/sputum, hemoptysis, pleuritic chest pain. SLEEP: Denies morning headaches, daytime somnolence or napping. Denies difficulty falling asleep, staying asleep, waking from sleep. Denies knowledge of snoring. GASTROINTESTINAL: nausea, vomiting, severe abdominal pain involving the epigastric region GENITOURINARY: Denies frequency, urgency, nocturia, hematuria or incontinence (Storage/Irritative symptoms.) Low urinary stream, straining to void, urinary intermittency or hesitancy, splitting of the voiding stream, terminal dribbling. ENDOCRINOLOGIC: Denies polyuria, polydipsia, polyphagia or heat/cold intolerances. HEMATOLOGIC: Denies thrombophilia/previous clots, or coagulopathy/bleeding disorders. ONCOLOGIC: Denies personal history of malignancy. DERMATOLOGIC: Denies rashes or pruritus. PSYCHIATRIC: Denies any suicidal or homicidal ideation. Denies hallucinations. PHYSICAL EXAM GENERAL APPEARANCE: The patient is awake, alert, and oriented, in no acute cardiopulmonary distress. NEUROLOGICAL: Cranial nerves II-XII grossly intact. Motor is 5/5 in bilateral upper and lower extremities proximal to distal. No sensory deficits. HEENT: Face is symmetric. Pupils are equal and reactive. Extraocular movements are intact. NECK: Supple. No JVD. No thyromegaly. No submental, submandibular, pre- /postauricular, occipital or supraclavicular lymphadenopathy. CHEST: Normal chest expansion. No Telemetry. LUNGS: Absence of any rales, rhonchi or any wheezing. CARDIOVASCULAR: Regular. S1 and S2 normal. No appreciable rubs, murmurs or gallops. ABDOMEN: Soft, nontender, tenderness to palpation involving the epigastric region : Deferred. No Browning. EXTREMITIES: Non-edematous and not cyanotic. No clubbing. Good capillary refill. SKIN: No skin breakdown. Vital Signs (last 8hr) Date Time Temp Pulse Resp B/P (MAP) Pulse Ox O2 Delivery O2 Flow Rate FiO2 01/24/25 07:52 Mask 15.0 01/24/25 07:23 Mask 01/24/25 04:00 99.5 102 18 126/74 95 Room Air 01/24/25 04:00 99.5 102 18 126/74 95 Room Air LABS: Laboratory: Test 01/23/25 06:20 01/22/25 15:47 01/22/25 14:00 01/22/25 11:36 Range/Units White Blood Count 8.4 # 4.8-10.8 K/uL Red Blood Count 4.81 4.00-5.50 MIL/uL Hemoglobin 11.8 L 12.0-16.0 g/dL Hematocrit 37.7 36-48 % Mean Corpuscular Volume 78.4 L 79-99 fL Mean Corpuscular Hemoglobin 24.5 L 27.0-33.0 pg Mean Corpuscular Hemoglobin Concent 31.3 L 32.0-36.0 g/dL Red Cell Distribution Width 21.3 H 11.0-15.5 % Platelet Count 302 130-400 K/uL Mean Platelet Volume 9.7 7.5-10.5 fL Immature Granulocyte % (Auto) 0.5 0-1 % Neutrophils (%) (Auto) 72.8 40.0-77.0 % Lymphocytes (%) (Auto) 18.9 L 21.0-51.0 % Monocytes (%) (Auto) 7.5 3.0-13.0 % Eosinophils (%) (Auto) 0.2 0.0-8.0 % Basophils (%) (Auto) 0.1 0.0-5.0 % Neutrophils # (Auto) 6.1 1.8-7.7 K/uL Lymphocytes # (Auto) 1.6 1.0-4.8 K/uL Monocytes # (Auto) 0.6 0.1-1.0 K/uL Eosinophils # (Auto) 0.02 0.00-0.70 K/uL Basophils # (Auto) 0.01 0.00-0.20 K/uL Absolute Immature Granulocyte (auto 0.04 0-1 K/uL Nucleated Red Blood Cells 0.0 0.0-0.19 % Sodium Level 142 136-145 mmol/L Potassium Level 3.4 L 3.5-5.1 mmol/L Chloride Level 106 101-111 mmol/L Carbon Dioxide Level 27 21-32 mmol/L Blood Urea Nitrogen 13 7-18 mg/dL Creatinine 0.9 0.5-1.0 mg/dL Glomerular Filtration Rate Calc 92 >90 mL/min Random Glucose 96 70-105 mg/dL Total Calcium 9.0 8.5-10.1 mg/dL Magnesium Level 2.20 1.80-2.40 mg/dL Total Bilirubin 5.0 H 0.2-1.0 mg/dL Aspartate Amino Transf (AST/SGOT) 292 H 10-37 U/L Alanine Aminotransferase (ALT/SGPT) 447 H 12-78 U/L Alkaline Phosphatase 355 H 50-136 U/L Total Protein 6.4 6.0-8.3 g/dL Albumin 3.0 #L 3.5-5.0 g/dL Lipase 1476 *H 16-77 U/L Erythrocyte Sedimentation Rate 12 0-20 MM/HR Prothrombin Time 10.1 9.6-11.6 SEC Prothromb Time International Ratio 0.95 0.85-1.15 Activated Partial Thromboplast Time 25.4 L 26.3-35.5 SEC C-Reactive Protein, Quantitative 1.20 0.5-3.0 mg/L Procalcitonin < 0.05 L 0.05-0.5 ng/mL Triglycerides Level 194 30-200 mg/dL Red Blood Cell Morphology See comments Total Creatine Kinase 103 21-232 U/L Human Chorionic Gonadotropin, Quant 0 0-5 mIU/mL Test 01/22/25 11:24 Range/Units Urine Color DARK-YELLOW YELLOW Urine Appearance CLOUDY H CLEAR Urine pH 7.5 5.0-8.0 Urine Specific [place] 1.014 1.001-1.031 Urine Protein 10 H NEGATIVE mg/dL Urine Glucose (UA) NEGATIVE NEGATIVE mg/dL Urine Ketones NEGATIVE NEGATIVE mg/dL Urine Occult Blood NEGATIVE NEGATIVE Urine Nitrate NEGATIVE NEGATIVE Urine Bilirubin 2 H NEGATIVE mg/dL Urine Urobilinogen 6 H 0.2-1.0 mg/dL Urine Leukocyte Esterase 250 H NEGATIVE Nava/uL Urine RBC 2-5 H 0-1 /HPF Urine WBC 6-10 H 0-1 /HPF Urine Squamous Epithelial Cells MOD 0-2 /HPF Urine Bacteria RARE None Seen /HPF Urine HCG, Qualitative NEGATIVE NEGATIVE Urine Opiates Screen NEGATIVE NEGATIVE Urine Barbiturates Screen NEGATIVE NEGATIVE Urine Phencyclidine Screen NEGATIVE NEGATIVE Urine Amphetamines Screen NEGATIVE NEGATIVE Urine Benzodiazepines Screen NEGATIVE NEGATIVE Urine Cocaine Screen NEGATIVE NEGATIVE Urine Marijuana (THC) Screen POSITIVE H NEGATIVE Current Medications Medications (Trade) Dose Ordered Sig/Jazmine Route PRN Reason Start Time Stop Time Status Last Admin Dose Admin Acetaminophen (TYLenol 325MG TAB) 650 mg Q6H PRN PO MILD PAIN (1-3) 01/22/25 15:00 02/21/25 14:59 Enoxaparin Sodium (Lovenox) 30 mg DAILY SQ 01/23/25 09:00 01/22/25 19:51 DC Enoxaparin Sodium (Lovenox) 30 mg HS SQ 01/23/25 21:00 02/22/25 08:59 01/23/25 20:50 30 MG Hydromorphone HCl (DiLAUDid 0.5MG INJ) 0.5 mg Q6H PRN IVP SEVERE PAIN (7-10) 01/22/25 15:00 01/27/25 14:59 01/22/25 18:36 0.5 MG Ketorolac Tromethamine (toRADol) 15 mg Q8H PRN IV MODERATE PAIN (4-6) 01/22/25 15:00 01/24/25 16:00 01/23/25 14:40 15 MG Lactated Ringer's 1,000 ml @ 150 mls/hr Q6H40M IV 01/22/25 15:00 02/21/25 14:59 01/23/25 20:49 150 MLS/HR Magnesium Sulfate 50 ml @ 0 mls/hr PROTOCOL IV 01/22/25 15:00 01/23/25 09:36 DC 01/22/25 17:49 25 MLS/HR Magnesium Sulfate 50 ml @ 0 mls/hr PROTOCOL IV 01/23/25 09:30 02/22/25 09:29 Pantoprazole Sodium (PROTonix 40MG INJ) 40 mg DAILY IVP 01/23/25 09:00 02/22/25 08:59 01/23/25 09:21 40 MG Piperacillin Sod/ Tazobactam Sod (Zosyn 3.375gm+NS 50ml) 3.375 gm Q8H IVPB 01/23/25 06:00 02/02/25 05:59 01/24/25 06:10 3.375 GM Piperacillin Sod/ Tazobactam Sod (Zosyn 3.375gm+NS 50ml) 3.375 gm TID IVPB 01/22/25 21:00 01/23/25 04:07 DC 01/22/25 22:00 3.375 GM Potassium Chloride 100 ml @ 100 mls/hr AD PRN IV POTASSIUM PROTOCOL 01/22/25 15:00 02/21/25 14:59 Potassium Chloride (K-Dur/Klor-Con 20meq) 20 meq AD PRN PO POTASSIUM PROTOCOL 01/22/25 15:00 02/21/25 14:59 Potassium Chloride (KCl 10% Elixir 20meq/15ml) 20 meq AD PRN PO POTASSIUM PROTOCOL 01/22/25 15:00 02/21/25 14:59 DIAGNOSTICS / RADIOLOGY: [ ] ASSESSMENT: Acute pancreatitis secondary to gallstones, POA Acute dehydration, POA Severe hypokalemia, POA Suspected choledocholithiasis, POA Cholelithiasis, POA Urinary tract infection, POA PLAN: Patient will be admitted to medical-surgical floor under telemetry monitoring We will continue IV fluids today with lactated Ringer's at 150 mL/hour, tomorrow we will start LR at 75 ml/hr We will keep patient on IV Protonix 40 mg daily Consultation with Gastroenterology MRCP already done and it showed gallstone are seen in the distended gallbladder. Common bile duct is dilated measuring 11 mm. No MR evidence of common duct stone seen however and clinical correlation is recommended. Tiny ascites is seen. Patient is scheduled for an ERCP today Appreciate recommendations from general surgeon, clear liquid diet has been started. Plans for cholecystectomy but we will await for schedule We will keep patient on IV Zosyn for management for UTI, patient received IV Zosyn in the ER with no side effects Patient will be kept strictly NPO today Potassium will be aggressively repleted, we will check potassium later tonight to ensure it is improving Magnesium will be repleted per protocol Pain control with IV hydromorphone for severe pain on IV Toradol for moderate pain All labs will be repeated in the morning including CBC, CMP, magnesium We will order CRP for tomorrow GI prophylaxis with Protonix, DVT prophylaxis with Lovenox but we will hold Lovenox for tonight Date of service: 01/22/2025 Plan of care was discussed with patient at bedside, Siva Johnson MD Advanced Care Planning: Which of the following were discussed: Hospice care: Yes __ No _X_ Therapeutic options: Yes _X_ No __ Advance directives: Yes __X No __ Other discussions: Discussed with who?: Patient Voluntary nature of this service was explained to the patient? Yes _x_ No __ Amount of time spent: 20 minutes ATTESTATION BY PHYSICIAN I have seen and examined the patient. I reviewed the documentation, medical decision making, and treatment plan as noted by the mid-level provider above. I agree with the findings and plan of care. HUGO LEYVA MD, [facility] Jan 24, 2025 08:44
[2025-01-24] MEDS: INDOMETHACIN 100 MG SUPP.RECT RC ONE (08:52)
[2025-01-24] MEDS: SUGAMMADEX SODIUM 200 MG/2 ML VIAL IV ONE (10:07)
--- NOTE | 2025-01-24 10:07 | HMCIMG ---
Fluoroscopy utilized for ERCP. The interpreting radiologist was not present during the procedure. The total fluoroscopy time has been recorded in the electronic medical record. /Palmer
--- NOTE | 2025-01-24 11:47 | PN ---
GENERAL SURGERY PROGRESS NOTE Date/Time Patient Seen: [ 01/24/2025] Problem List: [ ] Interval History: [ 24-year-old female admitted for gallstone pancreatitis Patient had ERCP done this morning, recommendations for patient to have cholecystectomy surgery Patient states she feels better without any further abdominal pain, nausea or vomiting Abdomen is soft, nontender, no guarding or rigidity Labs were not drawn today Continue with IV fluids and IV antibiotics Repeat labs in a.m. including lipase May start patient on clear liquid diet and not advance for now Patient will be scheduled for lap cholecystectomy this hospitalization Dr. Ambriz updated on patient's status ] Current Medications Medications (Trade) Dose Ordered Sig/Jazmien Route Start Time Stop Time Status Last Admin Dose Admin Enoxaparin Sodium (Lovenox) 30 mg DAILY SQ 01/23/25 09:00 01/22/25 19:51 DC Enoxaparin Sodium (Lovenox) 30 mg HS SQ 01/23/25 21:00 02/22/25 08:59 01/23/25 20:50 30 MG Lactated Ringer's 1,000 ml @ 150 mls/hr Q6H40M IV 01/22/25 15:00 02/21/25 14:59 01/24/25 10:12 150 MLS/HR Magnesium Sulfate 50 ml @ 0 mls/hr PROTOCOL IV 01/22/25 15:00 01/23/25 09:36 DC 01/22/25 17:49 25 MLS/HR Magnesium Sulfate 50 ml @ 0 mls/hr PROTOCOL IV 01/23/25 09:30 02/22/25 09:29 Pantoprazole Sodium (PROTonix 40MG INJ) 40 mg DAILY IVP 01/23/25 09:00 02/22/25 08:59 01/24/25 10:02 40 MG Piperacillin Sod/ Tazobactam Sod (Zosyn 3.375gm+NS 50ml) 3.375 gm Q8H IVPB 01/23/25 06:00 02/02/25 05:59 01/24/25 06:10 3.375 GM Piperacillin Sod/ Tazobactam Sod (Zosyn 3.375gm+NS 50ml) 3.375 gm TID IVPB 01/22/25 21:00 01/23/25 04:07 DC 01/22/25 22:00 3.375 GM Physical Examination: GENERAL: [No acute distress, female, comfortably resting in bed.] HEAD: [Normocephalic.] EYES: [Nonicteric sclera.] ENT: [Hearing grossly intact, normal oropharynx.] NECK: [Supple without JVD. There is no tenderness, lymphadenopathy, or masses. No thyromegaly. Normal carotid upstrokes without bruits.] LUNGS: [Clear breath sounds bilaterally. There are right basilar rales one third of the way up the chest. No wheezes, or rhonchi.] HEART: [Normal rate and rhythm. Normal S1 and S2 without mumurs, gallop or rub.] VASC: [Peripheral pulses +2 bilaterally.] ABD: [Bowel sounds normal, soft, nontender, no masses, no organomegaly. No audible bruits.] : [Not examined] LYMPH: [No lymphadenopathy noted.] EXT: [No clubbing, cyanosis or edema.] SKIN: [No rashes or lesions noted.] NEURO: [Awake, alert, and oriented x3. No focal sensory or strength deficits noted.] Vital Signs (last 8hr) Date Time Temp Pulse Resp B/P (MAP) Pulse Ox O2 Delivery O2 Flow Rate FiO2 01/24/25 09:35 81 16 119/68 96 Room Air 01/24/25 09:30 69 16 110/63 96 Room Air 01/24/25 09:25 69 16 109/62 100 Room Air 01/24/25 09:20 72 16 113/68 100 Room Air 01/24/25 09:15 69 16 112/64 100 Nonrebreathing Mask 15.0 01/24/25 09:10 69 16 112/66 100 Nonrebreathing Mask 15.0 01/24/25 09:05 72 16 113/68 100 Nonrebreathing Mask 15.0 01/24/25 09:00 78 16 121/77 100 Nonrebreathing Mask 15.0 01/24/25 08:55 82 16 116/78 100 Nonrebreathing Mask 15.0 01/24/25 08:50 82 16 120/76 100 Nonrebreathing Mask 15.0 01/24/25 08:45 85 16 113/70 100 Nonrebreathing Mask 15.0 01/24/25 08:40 79 16 120/73 100 Nonrebreathing Mask 15.0 01/24/25 08:35 94 16 139/97 100 Nonrebreathing Mask 15.0 01/24/25 07:52 Mask 15.0 01/24/25 07:23 Mask 01/24/25 04:00 99.5 102 18 126/74 95 Room Air 01/24/25 04:00 99.5 102 18 126/74 95 Room Air Laboratory: [ ] Hematology Labs: Test 01/23/25 06:20 01/22/25 15:47 01/22/25 11:36 Range/Units White Blood Count 8.4 # 4.8-10.8 K/uL Red Blood Count 4.81 4.00-5.50 MIL/uL Hemoglobin 11.8 L 12.0-16.0 g/dL Hematocrit 37.7 36-48 % Mean Corpuscular Volume 78.4 L 79-99 fL Mean Corpuscular Hemoglobin 24.5 L 27.0-33.0 pg Mean Corpuscular Hemoglobin Concent 31.3 L 32.0-36.0 g/dL Red Cell Distribution Width 21.3 H 11.0-15.5 % Platelet Count 302 130-400 K/uL Mean Platelet Volume 9.7 7.5-10.5 fL Immature Granulocyte % (Auto) 0.5 0-1 % Neutrophils (%) (Auto) 72.8 40.0-77.0 % Lymphocytes (%) (Auto) 18.9 L 21.0-51.0 % Monocytes (%) (Auto) 7.5 3.0-13.0 % Eosinophils (%) (Auto) 0.2 0.0-8.0 % Basophils (%) (Auto) 0.1 0.0-5.0 % Neutrophils # (Auto) 6.1 1.8-7.7 K/uL Lymphocytes # (Auto) 1.6 1.0-4.8 K/uL Monocytes # (Auto) 0.6 0.1-1.0 K/uL Eosinophils # (Auto) 0.02 0.00-0.70 K/uL Basophils # (Auto) 0.01 0.00-0.20 K/uL Absolute Immature Granulocyte (auto 0.04 0-1 K/uL Nucleated Red Blood Cells 0.0 0.0-0.19 % Erythrocyte Sedimentation Rate 12 0-20 MM/HR Red Blood Cell Morphology See comments Chemistry Labs: Test 01/23/25 06:20 01/22/25 15:47 01/22/25 14:00 01/22/25 11:36 Range/Units Sodium Level 142 136-145 mmol/L Potassium Level 3.4 L 3.5-5.1 mmol/L Chloride Level 106 101-111 mmol/L Carbon Dioxide Level 27 21-32 mmol/L Blood Urea Nitrogen 13 7-18 mg/dL Creatinine 0.9 0.5-1.0 mg/dL Glomerular Filtration Rate Calc 92 >90 mL/min Random Glucose 96 70-105 mg/dL Total Calcium 9.0 8.5-10.1 mg/dL Magnesium Level 2.20 1.80-2.40 mg/dL Total Bilirubin 5.0 H 0.2-1.0 mg/dL Aspartate Amino Transf (AST/SGOT) 292 H 10-37 U/L Alanine Aminotransferase (ALT/SGPT) 447 H 12-78 U/L Alkaline Phosphatase 355 H 50-136 U/L Total Protein 6.4 6.0-8.3 g/dL Albumin 3.0 #L 3.5-5.0 g/dL Lipase 1476 *H 16-77 U/L C-Reactive Protein, Quantitative 1.20 0.5-3.0 mg/L Procalcitonin < 0.05 L 0.05-0.5 ng/mL Triglycerides Level 194 30-200 mg/dL Total Creatine Kinase 103 21-232 U/L Human Chorionic Gonadotropin, Quant 0 0-5 mIU/mL Coagulation Labs: Test 01/22/25 15:47 Range/Units Prothrombin Time 10.1 9.6-11.6 SEC Prothromb Time International Ratio 0.95 0.85-1.15 Activated Partial Thromboplast Time 25.4 L 26.3-35.5 SEC Diagnostics / Radiology: [Copy/Paste Echos/Imaging Report here] Impression and Plan: [ ] 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
[2025-01-25] VITALS (9 sets, daily range): BP systolic 121–131; BP diastolic 71–88; PULSE 70–96; RESP 18–20; TEMP 98.1–98.8; O2SAT 98–99
[2025-01-25 05:26] LABS: NUCLEATED RED BLOOD CELLS 0.0 % (0.0-0.19); PLATELET COUNT (AUTO) 240.0 K/uL (130-400); RED BLOOD CELL COUNT(AUTO) 3.84 MIL/uL (4.00-5.50); RED CELL DISTRIBUTION WIDTH 19.7 % (11.0-15.5); WHITE BLOOD COUNT (AUTO) 7.9 K/uL (4.8-10.8)
[2025-01-25 05:42] LABS: ASPARTATE AMINOTRANSFERASE 74.0 U/L (10-37); CREATININE 0.6 mg/dL (0.5-1.0); GLOMERULAR FILTR. RATE CALC 129.0 mL/min (>90); GLUCOSE,RANDOM 80.0 mg/dL (70-105); SODIUM SERUM 138.0 mmol/L (136-145); TOTAL PROTEIN, SERUM 6.0 g/dL (6.0-8.3); UREA NITROGEN, BLOOD 6.0 mg/dL (7-18)
[2025-01-25] MEDS: PoTASSium chloRIDE 20MEQ ER 20 MEQ ERTAB PO PRN (08:09)
--- NOTE | 2025-01-25 10:19 | PN ---
GENERAL SURGERY PROGRESS NOTE Date/Time Patient Seen: [ 01/25/2025 10:00 AM] Problem List: [23-year-old female admitted for gallstone pancreatitis ] Interval History: [ 24-year-old female admitted for gallstone pancreatitis Patient had ERCP yesterday morning Patient states she feels better without any further abdominal pain, nausea or vomiting Abdomen is soft, nontender, no guarding or rigidity Lipase down to 333 Bilirubin down from 5.0 to 1.6 LFTs downtrending Patient is tolerating clear liquids, we will continue on clear liquids for now Plan is for patient to have cholecystectomy on Sunday with Dr. Ambriz Continue with IV fluids and IV antibiotics Repeat labs in a.m. Patient was instructed on risks of surgery including bleeding, infection, delayed wound healing, PE, and/or injury to other organs Patient verbalized understanding well and agrees with plan of care to proceed with scheduled surgery on Sunday Dr. Ambriz updated on patient's status ] Current Medications Medications (Trade) Dose Ordered Sig/Jazmine Route Start Time Stop Time Status Last Admin Dose Admin Enoxaparin Sodium (Lovenox) 30 mg DAILY SQ 01/23/25 09:00 01/22/25 19:51 DC Enoxaparin Sodium (Lovenox) 30 mg HS SQ 01/23/25 21:00 01/24/25 13:16 DC 01/23/25 20:50 30 MG Lactated Ringer's 1,000 ml @ 150 mls/hr Q6H40M IV 01/22/25 15:00 02/21/25 14:59 01/25/25 06:22 150 MLS/HR Magnesium Sulfate 50 ml @ 0 mls/hr PROTOCOL IV 01/22/25 15:00 01/23/25 09:36 DC 01/22/25 17:49 25 MLS/HR Magnesium Sulfate 50 ml @ 0 mls/hr PROTOCOL IV 01/23/25 09:30 02/22/25 09:29 Pantoprazole Sodium (PROTonix 40MG INJ) 40 mg DAILY IVP 01/23/25 09:00 02/22/25 08:59 01/25/25 08:09 40 MG Piperacillin Sod/ Tazobactam Sod (Zosyn 3.375gm+NS 50ml) 3.375 gm Q8H IVPB 01/23/25 06:00 02/02/25 05:59 01/25/25 06:21 3.375 GM Piperacillin Sod/ Tazobactam Sod (Zosyn 3.375gm+NS 50ml) 3.375 gm TID IVPB 01/22/25 21:00 01/23/25 04:07 DC 01/22/25 22:00 3.375 GM Physical Examination: GENERAL: [No acute distress.] HEAD: [Normocephalic.] EYES: [Nonicteric sclera bilaterally.] ENT: [Hearing grossly intact.] NECK: [Supple.] LUNGS: [Clear breath sounds bilaterally.] HEART: [Normal rate and rhythm] VASC: [Peripheral pulses +2 bilaterally.] ABD: [Bowel sounds normal, soft, nontender, no masses, no organomegaly. No audible bruits.] : [Not examined] EXT: [No edema.] SKIN: [No lesions noted.] NEURO: [Awake, alert, and oriented x3. No focal sensory or strength deficits noted.] Vital Signs (last 8hr) Date Time Temp Pulse Resp B/P (MAP) Pulse Ox O2 Delivery O2 Flow Rate FiO2 01/25/25 08:00 98.4 79 18 129/88 98 Room Air 21 01/25/25 04:00 98.8 80 20 131/78 98 Room Air Laboratory: [ ] Hematology Labs: Test 01/25/25 05:12 Range/Units White Blood Count 7.9 4.8-10.8 K/uL Red Blood Count 3.84 L 4.00-5.50 MIL/uL Hemoglobin 9.5 L 12.0-16.0 g/dL Hematocrit 29.7 #L 36-48 % Mean Corpuscular Volume 77.3 L 79-99 fL Mean Corpuscular Hemoglobin 24.7 L 27.0-33.0 pg Mean Corpuscular Hemoglobin Concent 32.0 32.0-36.0 g/dL Red Cell Distribution Width 19.7 H 11.0-15.5 % Platelet Count 240 130-400 K/uL Mean Platelet Volume 9.6 7.5-10.5 fL Nucleated Red Blood Cells 0.0 0.0-0.19 % Chemistry Labs: Test 01/25/25 05:12 Range/Units Sodium Level 138 136-145 mmol/L Potassium Level 3.2 L 3.5-5.1 mmol/L Chloride Level 104 101-111 mmol/L Carbon Dioxide Level 25 21-32 mmol/L Blood Urea Nitrogen 6 L 7-18 mg/dL Creatinine 0.6 0.5-1.0 mg/dL Glomerular Filtration Rate Calc 129 >90 mL/min Random Glucose 80 70-105 mg/dL Total Calcium 8.4 L 8.5-10.1 mg/dL Total Bilirubin 1.6 H 0.2-1.0 mg/dL Direct Bilirubin 0.8 H 0.0-0.3 mg/dL Aspartate Amino Transf (AST/SGOT) 74 H 10-37 U/L Alanine Aminotransferase (ALT/SGPT) 223 H 12-78 U/L Alkaline Phosphatase 340 H 50-136 U/L C-Reactive Protein, Quantitative 66.90 H 0.5-3.0 mg/L Total Protein 6.0 6.0-8.3 g/dL Albumin 2.5 L 3.5-5.0 g/dL Lipase 333 H 16-77 U/L Diagnostics / Radiology: [Copy/Paste Echos/Imaging Report here] ATTESTATION BY PHYSICIAN I have seen and examined the patient. I reviewed the documentation, medical decision making, and treatment plan as noted by the mid-level provider above. I agree with the findings and plan of care. MD OLE Trujillo LETICIA A WEIR FISHERMAN Jan 25, 2025 10:19
--- NOTE | 2025-01-25 10:39 | PN ---
[facility] PROGRESS NOTE Date of Service: Jan 25, 2025 Time of Service: 10:30 SUBJECTIVE: [The patient is a 24-year-old female with a history of gastritis who presented to the emergency room with severe epigastric abdominal pain, accompanied by nausea and vomiting, persisting for five days. She reported multiple episodes of vomiting and poor oral intake, with the pain rated at 10 out of 10 in severity. She has no significant past medical history or known cardiac or pulmonary conditions. Upon arrival at the hospital, she was afebrile and hemodynamically stable. Initial laboratory tests revealed an elevated white blood cell count of 12,400, normal hemoglobin, and a platelet count of 374,000. Her basic metabolic panel showed a low potassium level of 2.8, with other electrolytes within normal limits. Liver function tests were notably elevated, with a total bilirubin of 5.1, AST of 299, ALT of 522, and alkaline phosphatase of 383. Her lipase level was significantly elevated at 9,744, suggesting acute pancreatitis, likely secondary to choledocholithiasis. Additionally, she was found to have cloudy urine indicative of a urinary tract infection, for which she was started on intravenous antibiotics. The patient was admitted for further management, with consultations requested from gastroenterology and general surgery. Over the next 48-72 hours, she was closely monitored. On the following day, her lipase level had decreased to 1,476. An abdominal ultrasound and MRCP confirmed the presence of gallstones in a distended gallbladder and a dilated common bile duct measuring 11 mm, though no stones were visualized in the duct. Tiny ascites were also noted. ERCP was done which showed bubbles found in the biliary tract, biliary sphincterotomy was performed. The biliary tree was swept with minimal sludge was found. Indomethacin given to decrease risk of post ERCP pancreatitis. Patient was evaluated today, continue with current management. Patient is on clear liquid diet, plans for laparoscopic cholecystectomy prior to discharge. L ipase is markedly downtrending at 333 today. REVIEW OF SYSTEMS CONSTITUTIONAL: Denies fevers, chills, or night sweats. No unintentional weight loss reported. NEUROLOGICAL: Denies headache, amaurosis fugax, motor weakness, sensory deficit, vertigo/spinning sensation, gait abnormalities, or tremors. ENT: No hearing loss, otalgia, otorrhea, rhinitis, rhinorrhea, hoarseness, or sore throat. CARDIOVASCULAR: Denies any exertional angina, dyspnea on exertion, orthopnea, paroxysmal nocturnal dyspnea, palpitations, life-threatening arrhythmias, claudication. PULMONARY: Denies any shortness of breath, cough, phlegm/sputum, hemoptysis, pleuritic chest pain. SLEEP: Denies morning headaches, daytime somnolence or napping. Denies difficulty falling asleep, staying asleep, waking from sleep. Denies knowledge of snoring. GASTROINTESTINAL: nausea, vomiting, severe abdominal pain involving the epigastric region GENITOURINARY: Denies frequency, urgency, nocturia, hematuria or incontinence (Storage/Irritative symptoms.) Low urinary stream, straining to void, urinary intermittency or hesitancy, splitting of the voiding stream, terminal dribbling. ENDOCRINOLOGIC: Denies polyuria, polydipsia, polyphagia or heat/cold intolerances. HEMATOLOGIC: Denies thrombophilia/previous clots, or coagulopathy/bleeding disorders. ONCOLOGIC: Denies personal history of malignancy. DERMATOLOGIC: Denies rashes or pruritus. PSYCHIATRIC: Denies any suicidal or homicidal ideation. Denies hallucinations. PHYSICAL EXAM GENERAL APPEARANCE: The patient is awake, alert, and oriented, in no acute cardiopulmonary distress. NEUROLOGICAL: Cranial nerves II-XII grossly intact. Motor is 5/5 in bilateral upper and lower extremities proximal to distal. No sensory deficits. HEENT: Face is symmetric. Pupils are equal and reactive. Extraocular movements are intact. NECK: Supple. No JVD. No thyromegaly. No submental, submandibular, pre- /postauricular, occipital or supraclavicular lymphadenopathy. CHEST: Normal chest expansion. No Telemetry. LUNGS: Absence of any rales, rhonchi or any wheezing. CARDIOVASCULAR: Regular. S1 and S2 normal. No appreciable rubs, murmurs or gallops. ABDOMEN: Soft, nontender, tenderness to palpation involving the epigastric reg ion : Deferred. No Browning. EXTREMITIES: Non-edematous and not cyanotic. No clubbing. Good capillary refill. SKIN: No skin breakdown. Vital Signs (last 8hr) Date Time Temp Pulse Resp B/P (MAP) Pulse Ox O2 Delivery O2 Flow Rate FiO2 01/25/25 08:00 98.4 79 18 129/88 98 Room Air 21 01/25/25 04:00 98.8 80 20 131/78 98 Room Air LABS: Laboratory: Test 01/25/25 05:12 Range/Units White Blood Count 7.9 4.8-10.8 K/uL Red Blood Count 3.84 L 4.00-5.50 MIL/uL Hemoglobin 9.5 L 12.0-16.0 g/dL Hematocrit 29.7 #L 36-48 % Mean Corpuscular Volume 77.3 L 79-99 fL Mean Corpuscular Hemoglobin 24.7 L 27.0-33.0 pg Mean Corpuscular Hemoglobin Concent 32.0 32.0-36.0 g/dL Red Cell Distribution Width 19.7 H 11.0-15.5 % Platelet Count 240 130-400 K/uL Mean Platelet Volume 9.6 7.5-10.5 fL Nucleated Red Blood Cells 0.0 0.0-0.19 % Sodium Level 138 136-145 mmol/L Potassium Level 3.2 L 3.5-5.1 mmol/L Chloride Level 104 101-111 mmol/L Carbon Dioxide Level 25 21-32 mmol/L Blood Urea Nitrogen 6 L 7-18 mg/dL Creatinine 0.6 0.5-1.0 mg/dL Glomerular Filtration Rate Calc 129 >90 mL/min Random Glucose 80 70-105 mg/dL Total Calcium 8.4 L 8.5-10.1 mg/dL Total Bilirubin 1.6 H 0.2-1.0 mg/dL Direct Bilirubin 0.8 H 0.0-0.3 mg/dL Aspartate Amino Transf (AST/SGOT) 74 H 10-37 U/L Alanine Aminotransferase (ALT/SGPT) 223 H 12-78 U/L Alkaline Phosphatase 340 H 50-136 U/L C-Reactive Protein, Quantitative 66.90 H 0.5-3.0 mg/L Total Protein 6.0 6.0-8.3 g/dL Albumin 2.5 L 3.5-5.0 g/dL Lipase 333 H 16-77 U/L Current Medications Medications (Trade) Dose Ordered Sig/Jazmine Route PRN Reason Start Time Stop Time Status Last Admin Dose Admin Acetaminophen (TYLenol 325MG TAB) 650 mg Q6H PRN PO MILD PAIN (1-3) 01/22/25 15:00 02/21/25 14:59 Enoxaparin Sodium (Lovenox) 30 mg DAILY SQ 01/23/25 09:00 01/22/25 19:51 DC Enoxaparin Sodium (Lovenox) 30 mg HS SQ 01/23/25 21:00 01/24/25 13:16 DC 01/23/25 20:50 30 MG Hydromorphone HCl (DiLAUDid 0.5MG INJ) 0.5 mg Q6H PRN IVP SEVERE PAIN (7-10) 01/22/25 15:00 01/27/25 14:59 01/22/25 18:36 0.5 MG Ketorolac Tromethamine (toRADol) 15 mg Q8H PRN IV MODERATE PAIN (4-6) 01/22/25 15:00 01/24/25 16:00 DC 01/23/25 14:40 15 MG Lactated Ringer's 1,000 ml @ 150 mls/hr Q6H40M IV 01/22/25 15:00 02/21/25 14:59 01/25/25 06:22 150 MLS/HR Magnesium Sulfate 50 ml @ 0 mls/hr PROTOCOL IV 01/22/25 15:00 01/23/25 09:36 DC 01/22/25 17:49 25 MLS/HR Magnesium Sulfate 50 ml @ 0 mls/hr PROTOCOL IV 01/23/25 09:30 02/22/25 09:29 Pantoprazole Sodium (PROTonix 40MG INJ) 40 mg DAILY IVP 01/23/25 09:00 02/22/25 08:59 01/25/25 08:09 40 MG Piperacillin Sod/ Tazobactam Sod (Zosyn 3.375gm+NS 50ml) 3.375 gm Q8H IVPB 01/23/25 06:00 02/02/25 05:59 01/25/25 06:21 3.375 GM Piperacillin Sod/ Tazobactam Sod (Zosyn 3.375gm+NS 50ml) 3.375 gm TID IVPB 01/22/25 21:00 01/23/25 04:07 DC 01/22/25 22:00 3.375 GM Potassium Chloride 100 ml @ 100 mls/hr AD PRN IV POTASSIUM PROTOCOL 01/22/25 15:00 02/21/25 14:59 Potassium Chloride (K-Dur/Klor-Con 20meq) 20 meq AD PRN PO POTASSIUM PROTOCOL 01/22/25 15:00 02/21/25 14:59 01/25/25 08:09 20 MEQ Potassium Chloride (KCl 10% Elixir 20meq/15ml) 20 meq AD PRN PO POTASSIUM PROTOCOL 01/22/25 15:00 02/21/25 14:59 DIAGNOSTICS / RADIOLOGY: [ ] ASSESSMENT: Biliary pancreatitis, POA Acute pancreatitis secondary to gallstones, POA Acute dehydration, POA Severe hypokalemia, POA Suspected choledocholithiasis, POA Cholelithiasis, POA Urinary tract infection, POA PLAN: Patient will be admitted to medical-surgical floor under telemetry monitoring We will continue IV fluids today with lactated Ringer's at 150 mL/hour, tomorrow we will start LR at 75 ml/hr We will keep patient on IV Protonix 40 mg daily Consultation with Gastroenterology MRCP already done and it showed gallstone are seen in the distended gallbladder. Common bile duct is dilated measuring 11 mm. No MR evidence of common duct stone seen however and clinical correlation is recommended. Tiny ascites is seen. ERCP reviewed, status post sphincterotomy Appreciate recommendations from general surgeon, clear liquid diet has been started. Plans for cholecystectomy but we will await for schedule We will keep patient on IV Zosyn for management for UTI, patient received IV Zosyn in the ER with no side effects Patient will be on clear liquid diet Potassium will be aggressively repleted, we will check potassium later tonight to ensure it is improving Magnesium will be repleted per protocol Pain control with IV hydromorphone for severe pain on IV Toradol for moderate pain All labs will be repeated in the morning including CBC, CMP, magnesium We will order CRP for tomorrow GI prophylaxis with Protonix, DVT prophylaxis with Lovenox, will continue to hold. Provide SCD bilaterally Case seen and examined with Dr. Carey , above plan was formulated ATTESTATION BY PHYSICIAN I have seen and examined the patient. I reviewed the documentation, medical decision making, and treatment plan as noted by the mid-level provider above. I agree with the findings and plan of care. HUGO CAREY MD, JANICE B [facility] Jan 25, 2025 10:39
--- NOTE | 2025-01-25 14:39 | NUR ---
SOCIAL SERVICE CONSULT - MARIJUANA USE SERGEY met with patient regarding marijuana use. She admits patient using marijuana to help with pain. Patient states she has been having headaches and stomach pain. Patient was dx with Acute Pancreatitis and is scheduled for [facility] on 01/27/25. Patient denies any other drug use. SW educated patient on the negative effects of marijuana abuse on mental and physical health and provided patient with community resources for substance abuse counseling if needed. Patient in agreement.
[2025-01-26] VITALS (8 sets, daily range): BP systolic 124–134; BP diastolic 79–92; PULSE 75–90; RESP 16–20; TEMP 98–99.2; O2SAT 95–96
[2025-01-26 06:19] LABS: NUCLEATED RED BLOOD CELLS 0.0 % (0.0-0.19); PLATELET COUNT (AUTO) 273.0 K/uL (130-400); RED BLOOD CELL COUNT(AUTO) 4.01 MIL/uL (4.00-5.50); RED CELL DISTRIBUTION WIDTH 19.6 % (11.0-15.5); WHITE BLOOD COUNT (AUTO) 8.0 K/uL (4.8-10.8)
[2025-01-26 06:42] LABS: ASPARTATE AMINOTRANSFERASE 39.0 U/L (10-37); CREATININE 0.6 mg/dL (0.5-1.0); GLOMERULAR FILTR. RATE CALC 129.0 mL/min (>90); GLUCOSE,RANDOM 60.0 mg/dL (70-105); SODIUM SERUM 140.0 mmol/L (136-145); TOTAL PROTEIN, SERUM 6.4 g/dL (6.0-8.3); UREA NITROGEN, BLOOD 4.0 mg/dL (7-18)
--- NOTE | 2025-01-26 10:21 | PN ---
GASTROENTEROLOGY PROGRESS NOTE Date of Visit: Jan 26, 2025 Time of Visit: 10:21 Events / Notes: [ ] Review of Systems: CONSTITUTIONAL: No malaise or change in sensation of wellbeing. ENMT: No rhinorrhea, otorrhea, sinus pain, ear ache. CARDIOVASCULAR: No angina, palpitations, orthopnea or paroxysmal dyspnea. RESPIRATORY: No SOB. GASTROINTESTINAL: No abdominal pain, nausea, vomiting, diarrhea, hematemesis, melena or change in the patient's habitual bowel movements consistency/number. GENITOURINARY: No dysuria, hematuria or change in bladder continence. MUSCULOSKELETAL: No new muscle pain or decrease in muscular strength. No new joint swelling, redness or tenderness. SKIN: No new rash. Physical Exam: GEN: Awake, alert, oriented in person, time and place, and in no acute distress. HEENT: No sinus tenderness. Tympanic membranes were not examined. No rhinorrhea. Oral pharyngeal mucosa is pink, moist and within normal limits. Neck is supple with no cervical lymphadenopathy, thyromegaly or JVD. CHEST: Inspection, palpation and percussion of the chest were unremarkable. Lung auscultation revealed normal breath sounds bilaterally. CARDIAC: PMI is within normal limits. Heart sounds are regular. Normal S1, S2. No gallop or murmur. ABD: Soft, non-tender and not distended. No peritoneal signs on palpation. No organomegaly. Normal bowel sounds. EXT: No cyanosis or clubbing. No edema. SKIN: Intact. No rashes. JOINTS: No evidence of synovitis or acute arthritis. NEURO: Alert and oriented to name, place and person. Cranial nerve examination is unremarkable. No focal motor deficits. Normal speech. Gait is normal. Strength is normal. Vital Signs (last 8hr) Date Time Temp Pulse Resp B/P (MAP) Pulse Ox O2 Delivery O2 Flow Rate FiO2 01/26/25 08:23 98.1 84 20 133/92 95 01/26/25 04:00 98.2 90 20 134/81 96 Room Air Laboratory: [ ] Laboratory: Test 01/26/25 05:12 01/25/25 05:12 Range/Units White Blood Count 8.0 4.8-10.8 K/uL Red Blood Count 4.01 4.00-5.50 MIL/uL Hemoglobin 10.1 L 12.0-16.0 g/dL Hematocrit 31.1 L 36-48 % Mean Corpuscular Volume 77.6 L 79-99 fL Mean Corpuscular Hemoglobin 25.2 L 27.0-33.0 pg Mean Corpuscular Hemoglobin Concent 32.5 32.0-36.0 g/dL Red Cell Distribution Width 19.6 H 11.0-15.5 % Platelet Count 273 130-400 K/uL Mean Platelet Volume 10.0 7.5-10.5 fL Nucleated Red Blood Cells 0.0 0.0-0.19 % Sodium Level 140 136-145 mmol/L Potassium Level 3.6 3.5-5.1 mmol/L Chloride Level 104 101-111 mmol/L Carbon Dioxide Level 24 21-32 mmol/L Blood Urea Nitrogen 4 L 7-18 mg/dL Creatinine 0.6 0.5-1.0 mg/dL Glomerular Filtration Rate Calc 129 >90 mL/min Random Glucose 60 L 70-105 mg/dL Total Calcium 8.6 8.5-10.1 mg/dL Total Bilirubin 1.2 #H 0.2-1.0 mg/dL Aspartate Amino Transf (AST/SGOT) 39 H 10-37 U/L Alanine Aminotransferase (ALT/SGPT) 169 #H 12-78 U/L Alkaline Phosphatase 287 H 50-136 U/L Total Protein 6.4 6.0-8.3 g/dL Albumin 2.6 L 3.5-5.0 g/dL Lipase 244 H 16-77 U/L Direct Bilirubin 0.8 H 0.0-0.3 mg/dL C-Reactive Protein, Quantitative 66.90 H 0.5-3.0 mg/L Current Medications Medications (Trade) Dose Ordered Sig/Jazmine Route PRN Reason Start Time Stop Time Status Last Admin Dose Admin Acetaminophen (TYLenol 325MG TAB) 650 mg Q6H PRN PO MILD PAIN (1-3) 01/22/25 15:00 02/21/25 14:59 Enoxaparin Sodium (Lovenox) 30 mg DAILY SQ 01/23/25 09:00 01/22/25 19:51 DC Enoxaparin Sodium (Lovenox) 30 mg HS SQ 01/23/25 21:00 01/24/25 13:16 DC 01/23/25 20:50 30 MG Hydromorphone HCl (DiLAUDid 0.5MG INJ) 0.5 mg Q6H PRN IVP SEVERE PAIN (7-10) 01/22/25 15:00 01/27/25 14:59 01/22/25 18:36 0.5 MG Ketorolac Tromethamine (toRADol) 15 mg Q8H PRN IV MODERATE PAIN (4-6) 01/22/25 15:00 01/24/25 16:00 DC 01/23/25 14:40 15 MG Lactated Ringer's 1,000 ml @ 150 mls/hr Q6H40M IV 01/22/25 15:00 02/21/25 14:59 01/26/25 05:55 150 MLS/HR Magnesium Sulfate 50 ml @ 0 mls/hr PROTOCOL IV 01/22/25 15:00 01/23/25 09:36 DC 01/22/25 17:49 25 MLS/HR Magnesium Sulfate 50 ml @ 0 mls/hr PROTOCOL IV 01/23/25 09:30 02/22/25 09:29 Pantoprazole Sodium (PROTonix 40MG INJ) 40 mg DAILY IVP 01/23/25 09:00 02/22/25 08:59 01/26/25 10:14 40 MG Piperacillin Sod/ Tazobactam Sod (Zosyn 3.375gm+NS 50ml) 3.375 gm Q8H IVPB 01/23/25 06:00 02/02/25 05:59 01/26/25 05:55 3.375 GM Piperacillin Sod/ Tazobactam Sod (Zosyn 3.375gm+NS 50ml) 3.375 gm TID IVPB 01/22/25 21:00 01/23/25 04:07 DC 01/22/25 22:00 3.375 GM Potassium Chloride 100 ml @ 100 mls/hr AD PRN IV POTASSIUM PROTOCOL 01/22/25 15:00 02/21/25 14:59 Potassium Chloride (K-Dur/Klor-Con 20meq) 20 meq AD PRN PO POTASSIUM PROTOCOL 01/22/25 15:00 02/21/25 14:59 01/25/25 15:20 20 MEQ Potassium Chloride (KCl 10% Elixir 20meq/15ml) 20 meq AD PRN PO POTASSIUM PROTOCOL 01/22/25 15:00 02/21/25 14:59 Diagnostics / Radiology: [COPY/PASTE HERE IF NO REPORTS PLEASE DELETE SECTION] Assessment: Acute pancreatitis Plan: [employer] LFT[employer] NATALY [employer] Jan 26, 2025 10:21
--- NOTE | 2025-01-26 10:37 | PN ---
[facility] PROGRESS NOTE Date of Service: Jan 26, 2025 Time of Service: 10:26 SUBJECTIVE: [The patient is a 24-year-old female with a history of gastritis who presented to the emergency room with severe epigastric abdominal pain, accompanied by nausea and vomiting, persisting for five days. She reported multiple episodes of vomiting and poor oral intake, with the pain rated at 10 out of 10 in severity. She has no significant past medical history or known cardiac or pulmonary conditions. Upon arrival at the hospital, she was afebrile and hemodynamically stable. Initial laboratory tests revealed an elevated white blood cell count of 12,400, normal hemoglobin, and a platelet count of 374,000. Her basic metabolic panel showed a low potassium level of 2.8, with other electrolytes within normal limits. Liver function tests were notably elevated, with a total bilirubin of 5.1, AST of 299, ALT of 522, and alkaline phosphatase of 383. Her lipase level was significantly elevated at 9,744, suggesting acute pancreatitis, likely secondary to choledocholithiasis. Additionally, she was found to have cloudy urine indicative of a urinary tract infection, for which she was started on intravenous antibiotics. The patient was admitted for further management, with consultations requested from gastroenterology and general surgery. Over the next 48-72 hours, she was closely monitored. On the following day, her lipase level had decreased to 1,476. An abdominal ultrasound and MRCP confirmed the presence of gallstones in a distended gallbladder and a dilated common bile duct measuring 11 mm, though no stones were visualized in the duct. Tiny ascites were also noted. On 01/24/25 ERCP was done which showed bubbles found in the biliary tract, biliary sphincterotomy was performed. The biliary tree was swept with minimal sludge was found. Indomethacin given to decrease risk of post ERCP pancreatitis. Today patient was examined in the room, patient is doing better, abdominal pain has actually resolved. Her lipase is improved from 9744 on admission, now its 244. Patient is scheduled for laparoscopic cholecystectomy on 01/27/2025. REVIEW OF SYSTEMS CONSTITUTIONAL: Denies fevers, chills, or night sweats. No unintentional weight loss reported. NEUROLOGICAL: Denies headache, amaurosis fugax, motor weakness, sensory deficit, vertigo/spinning sensation, gait abnormalities, or tremors. ENT: No hearing loss, otalgia, otorrhea, rhinitis, rhinorrhea, hoarseness, or sore throat. CARDIOVASCULAR: Denies any exertional angina, dyspnea on exertion, orthopnea, paroxysmal nocturnal dyspnea, palpitations, life-threatening arrhythmias, claudication. PULMONARY: Denies any shortness of breath, cough, phlegm/sputum, hemoptysis, pleuritic chest pain. SLEEP: Denies morning headaches, daytime somnolence or napping. Denies difficulty falling asleep, staying asleep, waking from sleep. Denies knowledge of snoring. GASTROINTESTINAL: nausea, vomiting, severe abdominal pain involving the epigastric region GENITOURINARY: Denies frequency, urgency, nocturia, hematuria or incontinence (Storage/Irritative symptoms.) Low urinary stream, straining to void, urinary intermittency or hesitancy, splitting of the voiding stream, terminal dribbling. ENDOCRINOLOGIC: Denies polyuria, polydipsia, polyphagia or heat/cold intolerances. HEMATOLOGIC: Denies thrombophilia/previous clots, or coagulopathy/bleeding disorders. ONCOLOGIC: Denies personal history of malignancy. DERMATOLOGIC: Denies rashes or pruritus. PSYCHIATRIC: Denies any suicidal or homicidal ideation. Denies hallucinations. PHYSICAL EXAM GENERAL APPEARANCE: The patient is awake, alert, and oriented, in no acute cardiopulmonary distress. NEUROLOGICAL: Cranial nerves II-XII grossly intact. Motor is 5/5 in bilateral upper and lower extremities proximal to distal. No sensory deficits. HEENT: Face is symmetric. Pupils are equal and reactive. Extraocular movements are intact. NECK: Supple. No JVD. No thyromegaly. No submental, submandibular, pre- /postauricular, occipital or supraclavicular lymphadenopathy. CHEST: Normal chest expansion. No Telemetry. LUNGS: Absence of any rales, rhonchi or any wheezing. CARDIOVASCULAR: Regular. S1 and S2 normal. No appreciable rubs, murmurs or gallops. ABDOMEN: Soft, nontender, tenderness to palpation involving the epigastric region : Deferred. No Browning. EXTREMITIES: Non-edematous and not cyanotic. No clubbing. Good capillary refill. SKIN: No skin breakdown. Vital Signs (last 8hr) Date Time Temp Pulse Resp B/P (MAP) Pulse Ox O2 Delivery O2 Flow Rate FiO2 01/26/25 08:23 98.1 84 20 133/92 95 01/26/25 04:00 98.2 90 20 134/81 96 Room Air LABS: Laboratory: Test 01/26/25 05:12 01/25/25 05:12 Range/Units White Blood Count 8.0 4.8-10.8 K/uL Red Blood Count 4.01 4.00-5.50 MIL/uL Hemoglobin 10.1 L 12.0-16.0 g/dL Hematocrit 31.1 L 36-48 % Mean Corpuscular Volume 77.6 L 79-99 fL Mean Corpuscular Hemoglobin 25.2 L 27.0-33.0 pg Mean Corpuscular Hemoglobin Concent 32.5 32.0-36.0 g/dL Red Cell Distribution Width 19.6 H 11.0-15.5 % Platelet Count 273 130-400 K/uL Mean Platelet Volume 10.0 7.5-10.5 fL Nucleated Red Blood Cells 0.0 0.0-0.19 % Sodium Level 140 136-145 mmol/L Potassium Level 3.6 3.5-5.1 mmol/L Chloride Level 104 101-111 mmol/L Carbon Dioxide Level 24 21-32 mmol/L Blood Urea Nitrogen 4 L 7-18 mg/dL Creatinine 0.6 0.5-1.0 mg/dL Glomerular Filtration Rate Calc 129 >90 mL/min Random Glucose 60 L 70-105 mg/dL Total Calcium 8.6 8.5-10.1 mg/dL Total Bilirubin 1.2 #H 0.2-1.0 mg/dL Aspartate Amino Transf (AST/SGOT) 39 H 10-37 U/L Alanine Aminotransferase (ALT/SGPT) 169 #H 12-78 U/L Alkaline Phosphatase 287 H 50-136 U/L Total Protein 6.4 6.0-8.3 g/dL Albumin 2.6 L 3.5-5.0 g/dL Lipase 244 H 16-77 U/L Direct Bilirubin 0.8 H 0.0-0.3 mg/dL C-Reactive Protein, Quantitative 66.90 H 0.5-3.0 mg/L Current Medications Medications (Trade) Dose Ordered Sig/Jazmine Route PRN Reason Start Time Stop Time Status Last Admin Dose Admin Acetaminophen (TYLenol 325MG TAB) 650 mg Q6H PRN PO MILD PAIN (1-3) 01/22/25 15:00 02/21/25 14:59 Enoxaparin Sodium (Lovenox) 30 mg DAILY SQ 01/23/25 09:00 01/22/25 19:51 DC Enoxaparin Sodium (Lovenox) 30 mg HS SQ 01/23/25 21:00 01/24/25 13:16 DC 01/23/25 20:50 30 MG Hydromorphone HCl (DiLAUDid 0.5MG INJ) 0.5 mg Q6H PRN IVP SEVERE PAIN (7-10) 01/22/25 15:00 01/27/25 14:59 01/22/25 18:36 0.5 MG Ketorolac Tromethamine (toRADol) 15 mg Q8H PRN IV MODERATE PAIN (4-6) 01/22/25 15:00 01/24/25 16:00 DC 01/23/25 14:40 15 MG Lactated Ringer's 1,000 ml @ 150 mls/hr Q6H40M IV 01/22/25 15:00 02/21/25 14:59 01/26/25 05:55 150 MLS/HR Magnesium Sulfate 50 ml @ 0 mls/hr PROTOCOL IV 01/22/25 15:00 01/23/25 09:36 DC 01/22/25 17:49 25 MLS/HR Magnesium Sulfate 50 ml @ 0 mls/hr PROTOCOL IV 01/23/25 09:30 02/22/25 09:29 Pantoprazole Sodium (PROTonix 40MG INJ) 40 mg DAILY IVP 01/23/25 09:00 02/22/25 08:59 01/26/25 10:14 40 MG Piperacillin Sod/ Tazobactam Sod (Zosyn 3.375gm+NS 50ml) 3.375 gm Q8H IVPB 01/23/25 06:00 02/02/25 05:59 01/26/25 05:55 3.375 GM Piperacillin Sod/ Tazobactam Sod (Zosyn 3.375gm+NS 50ml) 3.375 gm TID IVPB 01/22/25 21:00 01/23/25 04:07 DC 01/22/25 22:00 3.375 GM Potassium Chloride 100 ml @ 100 mls/hr AD PRN IV POTASSIUM PROTOCOL 01/22/25 15:00 02/21/25 14:59 Potassium Chloride (K-Dur/Klor-Con 20meq) 20 meq AD PRN PO POTASSIUM PROTOCOL 01/22/25 15:00 02/21/25 14:59 01/25/25 15:20 20 MEQ Potassium Chloride (KCl 10% Elixir 20meq/15ml) 20 meq AD PRN PO POTASSIUM PROTOCOL 01/22/25 15:00 02/21/25 14:59 DIAGNOSTICS / RADIOLOGY: [ ] ASSESSMENT: Biliary pancreatitis, POA Acute pancreatitis secondary to gallstones, POA Acute dehydration, POA Severe hypokalemia, POA Suspected choledocholithiasis, POA Cholelithiasis, POA Urinary tract infection, POA PLAN: Patient will be admitted to medical-surgical floor under telemetry monitoring We will continue IV fluids twith lactated Ringer's at 150 mL/hour, tomorrow we will start LR at 75 ml/hr We will keep patient on IV Protonix 40 mg daily Consultation with Gastroenterology MRCP already done and it showed gallstone are seen in the distended gallbladder. Common bile duct is dilated measuring 11 mm. No MR evidence of common duct stone seen however and clinical correlation is recommended. Tiny ascites is seen. ERCP reviewed, status post sphincterotomy Appreciate recommendations from general surgeon, clear liquid diet, NPO after midnight today. Plans for cholecystectomy on 01/27/25. Continue with IV Zosyn for management for UTI, patient received IV Zosyn in the ER with no side effects Patient will be on clear liquid diet Potassium will be aggressively repleted, we will check potassium later tonight to ensure it is improving Magnesium will be replete per protocol Pain control with IV hydromorphone for severe pain on IV Toradol for moderate pain All labs will be repeated in the morning including CBC, CMP, magnesium GI prophylaxis with Protonix, DVT prophylaxis with Lovenox, will continue to hold. Provide SCD bilaterally Case seen and examined with Dr. Cormier , above plan was formulated ATTESTATION BY PHYSICIAN I have seen and examined the patient. I reviewed the documentation, medical decision making, and treatment plan as noted by the mid-level provider above. I agree with the findings and plan of care. SANDHYA MINER MD, [facility] Jan 26, 2025 10:37
[2025-01-27] VITALS (25 sets, daily range): BP systolic 102–135; BP diastolic 60–86; PULSE 69–96; RESP 15–20; TEMP 97.5–98.6; O2SAT 94
[2025-01-27 05:49] LABS: NUCLEATED RED BLOOD CELLS 0.0 % (0.0-0.19); PLATELET COUNT (AUTO) 297.0 K/uL (130-400); RED BLOOD CELL COUNT(AUTO) 3.87 MIL/uL (4.00-5.50); RED CELL DISTRIBUTION WIDTH 19.4 % (11.0-15.5); WHITE BLOOD COUNT (AUTO) 8.1 K/uL (4.8-10.8)
[2025-01-27 06:01] LABS: ASPARTATE AMINOTRANSFERASE 26.0 U/L (10-37); CREATININE 0.6 mg/dL (0.5-1.0); GLOMERULAR FILTR. RATE CALC 129.0 mL/min (>90); GLUCOSE,RANDOM 60.0 mg/dL (70-105); SODIUM SERUM 141.0 mmol/L (136-145); TOTAL PROTEIN, SERUM 6.6 g/dL (6.0-8.3); UREA NITROGEN, BLOOD 4.0 mg/dL (7-18)
--- NOTE | 2025-01-27 06:54 | NUR ---
PT INFORMED OF [facility]GERY TODAY WITH DR STONE. TO REMAIN NPO. TECHNOLOGY SALES SPECIALIST SUNDAR AWARE AND WILL SCHEDULE. CONSENT SIGNED BY PATIENT. CHG SHOWER TAKEN LAST NIGHT
--- NOTE | 2025-01-27 08:58 | PN ---
[facility] PROGRESS NOTE Date of Service: Jan 27, 2025 Time of Service: 08:55 SUBJECTIVE: [The patient is a 24-year-old female with a history of gastritis who presented to the emergency room with severe epigastric abdominal pain, accompanied by nausea and vomiting, persisting for five days. She reported multiple episodes of vomiting and poor oral intake, with the pain rated at 10 out of 10 in severity. She has no significant past medical history or known cardiac or pulmonary conditions. Upon arrival at the hospital, she was afebrile and hemodynamically stable. Initial laboratory tests revealed an elevated white blood cell count of 12,400, normal hemoglobin, and a platelet count of 374,000. Her basic metabolic panel showed a low potassium level of 2.8, with other electrolytes within normal limits. Liver function tests were notably elevated, with a total bilirubin of 5.1, AST of 299, ALT of 522, and alkaline phosphatase of 383. Her lipase level was significantly elevated at 9,744, suggesting acute pancreatitis, likely secondary to choledocholithiasis. Additionally, she was found to have cloudy urine indicative of a urinary tract infection, for which she was started on intravenous antibiotics. The patient was admitted for further management, with consultations requested from gastroenterology and general surgery. Over the next 48-72 hours, she was closely monitored. On the following day, her lipase level had decreased to 1,476. An abdominal ultrasound and MRCP confirmed the presence of gallstones in a distended gallbladder and a dilated common bile duct measuring 11 mm, though no stones were visualized in the duct. Tiny ascites were also noted. On 01/24/25 ERCP was done which showed bubbles found in the biliary tract, biliary sphincterotomy was performed. The biliary tree was swept with minimal sludge was found. Indomethacin given to decrease risk of post ERCP pancreatitis. Patient is denies any pain, she is NPO at this time. No acute events reported overnight. she is going for robotic assisted lap ciara possible open with Dr. Mendes. REVIEW OF SYSTEMS CONSTITUTIONAL: Denies fevers, chills, or night sweats. No unintentional weight loss reported. NEUROLOGICAL: Denies headache, amaurosis fugax, motor weakness, sensory deficit, vertigo/spinning sensation, gait abnormalities, or tremors. ENT: No hearing loss, otalgia, otorrhea, rhinitis, rhinorrhea, hoarseness, or sore throat. CARDIOVASCULAR: Denies any exertional angina, dyspnea on exertion, orthopnea, paroxysmal nocturnal dyspnea, palpitations, life-threatening arrhythmias, andree ication. PULMONARY: Denies any shortness of breath, cough, phlegm/sputum, hemoptysis, pleuritic chest pain. SLEEP: Denies morning headaches, daytime somnolence or napping. Denies difficulty falling asleep, staying asleep, waking from sleep. Denies knowledge of snoring. GASTROINTESTINAL: nausea, vomiting, severe abdominal pain involving the epigastric region GENITOURINARY: Denies frequency, urgency, nocturia, hematuria or incontinence (Storage/Irritative symptoms.) Low urinary stream, straining to void, urinary intermittency or hesitancy, splitting of the voiding stream, terminal dribbling. ENDOCRINOLOGIC: Denies polyuria, polydipsia, polyphagia or heat/cold intolerances. HEMATOLOGIC: Denies thrombophilia/previous clots, or coagulopathy/bleeding disorders. ONCOLOGIC: Denies personal history of malignancy. DERMATOLOGIC: Denies rashes or pruritus. PSYCHIATRIC: Denies any suicidal or homicidal ideation. Denies hallucinations. PHYSICAL EXAM GENERAL APPEARANCE: The patient is awake, alert, and oriented, in no acute cardiopulmonary distress. NEUROLOGICAL: Cranial nerves II-XII grossly intact. Motor is 5/5 in bilateral upper and lower extremities proximal to distal. No sensory deficits. HEENT: Face is symmetric. Pupils are equal and reactive. Extraocular movements are intact. NECK: Supple. No JVD. No thyromegaly. No submental, submandibular, pre-/po stauricular, occipital or supraclavicular lymphadenopathy. CHEST: Normal chest expansion. No Telemetry. LUNGS: Absence of any rales, rhonchi or any wheezing. CARDIOVASCULAR: Regular. S1 and S2 normal. No appreciable rubs, murmurs or gallops. ABDOMEN: Soft, nontender, tenderness to palpation involving the epigastric region : Deferred. No Browning. EXTREMITIES: Non-edematous and not cyanotic. No clubbing. Good capillary refill. SKIN: No skin breakdown. Vital Signs (last 8hr) Date Time Temp Pulse Resp B/P (MAP) Pulse Ox O2 Delivery O2 Flow Rate FiO2 01/27/25 07:36 94 Room Air* 0 21 01/27/25 04:00 98.1 88 16 132/86 94 Room Air LABS: Laboratory: Test 01/27/25 05:25 01/26/25 05:12 Range/Units White Blood Count 8.1 4.8-10.8 K/uL Red Blood Count 3.87 L 4.00-5.50 MIL/uL Hemoglobin 9.7 L 12.0-16.0 g/dL Hematocrit 30.3 L 36-48 % Mean Corpuscular Volume 78.3 L 79-99 fL Mean Corpuscular Hemoglobin 25.1 L 27.0-33.0 pg Mean Corpuscular Hemoglobin Concent 32.0 32.0-36.0 g/dL Red Cell Distribution Width 19.4 H 11.0-15.5 % Platelet Count 297 130-400 K/uL Mean Platelet Volume 9.7 7.5-10.5 fL Nucleated Red Blood Cells 0.0 0.0-0.19 % Sodium Level 141 136-145 mmol/L Potassium Level 3.9 3.5-5.1 mmol/L Chloride Level 104 101-111 mmol/L Carbon Dioxide Level 26 21-32 mmol/L Blood Urea Nitrogen 4 L 7-18 mg/dL Creatinine 0.6 0.5-1.0 mg/dL Glomerular Filtration Rate Calc 129 >90 mL/min Random Glucose 60 L 70-105 mg/dL Total Calcium 8.7 8.5-10.1 mg/dL Total Bilirubin 1.1 H 0.2-1.0 mg/dL Aspartate Amino Transf (AST/SGOT) 26 10-37 U/L Alanine Aminotransferase (ALT/SGPT) 129 H 12-78 U/L Alkaline Phosphatase 250 H 50-136 U/L C-Reactive Protein, Quantitative 60.90 H 0.5-3.0 mg/L Total Protein 6.6 6.0-8.3 g/dL Albumin 2.7 L 3.5-5.0 g/dL Lipase 244 H 16-77 U/L Current Medications Medications (Trade) Dose Ordered Sig/Jazmine Route PRN Reason Start Time Stop Time Status Last Admin Dose Admin Acetaminophen (TYLenol 325MG TAB) 650 mg Q6H PRN PO MILD PAIN (1-3) 01/22/25 15:00 02/21/25 14:59 Enoxaparin Sodium (Lovenox) 30 mg DAILY SQ 01/23/25 09:00 01/22/25 19:51 DC Enoxaparin Sodium (Lovenox) 30 mg HS SQ 01/23/25 21:00 01/24/25 13:16 DC 01/23/25 20:50 30 MG Hydromorphone HCl (DiLAUDid 0.5MG INJ) 0.5 mg Q6H PRN IVP SEVERE PAIN (7-10) 01/22/25 15:00 01/27/25 14:59 01/26/25 23:03 0.5 MG Ketorolac Tromethamine (toRADol) 15 mg Q8H PRN IV MODERATE PAIN (4-6) 01/22/25 15:00 01/24/25 16:00 DC 01/23/25 14:40 15 MG Lactated Ringer's 1,000 ml @ 75 mls/hr [id number] IV 01/22/25 15:00 02/21/25 14:59 01/26/25 21:33 75 MLS/HR Magnesium Sulfate 50 ml @ 0 mls/hr PROTOCOL IV 01/22/25 15:00 01/23/25 09:36 DC 01/22/25 17:49 25 MLS/HR Magnesium Sulfate 50 ml @ 0 mls/hr PROTOCOL IV 01/23/25 09:30 02/22/25 09:29 Pantoprazole Sodium (PROTonix 40MG INJ) 40 mg DAILY IVP 01/23/25 09:00 02/22/25 08:59 01/26/25 10:14 40 MG Piperacillin Sod/ Tazobactam Sod (Zosyn 3.375gm+NS 50ml) 3.375 gm Q8H IVPB 01/23/25 06:00 02/02/25 05:59 01/27/25 06:24 3.375 GM Piperacillin Sod/ Tazobactam Sod (Zosyn 3.375gm+NS 50ml) 3.375 gm TID IVPB 01/22/25 21:00 01/23/25 04:07 DC 01/22/25 22:00 3.375 GM Potassium Chloride 100 ml @ 100 mls/hr AD PRN IV POTASSIUM PROTOCOL 01/22/25 15:00 02/21/25 14:59 Potassium Chloride (K-Dur/Klor-Con 20meq) 20 meq AD PRN PO POTASSIUM PROTOCOL 01/22/25 15:00 02/21/25 14:59 01/25/25 15:20 20 MEQ Potassium Chloride (KCl 10% Elixir 20meq/15ml) 20 meq AD PRN PO POTASSIUM PROTOCOL 01/22/25 15:00 02/21/25 14:59 DIAGNOSTICS / RADIOLOGY: [ ] ASSESSMENT: Biliary pancreatitis, POA Acute pancreatitis secondary to gallstones, POA Acute dehydration, POA Severe hypokalemia, POA Suspected choledocholithiasis, POA Cholelithiasis, POA Urinary tract infection, POA PLAN: Patient will be admitted to medical-surgical floor under telemetry monitoring We will continue IV fluids with LR at 75 ml/hr We will keep patient on IV Protonix 40 mg daily Consultation with Gastroenterology MRCP already done and it showed gallstone are seen in the distended gallbladder. Common bile duct is dilated measuring 11 mm. No MR evidence of common duct stone seen however and clinical correlation is recommended. Tiny ascites is seen. ERCP reviewed, status post sphincterotomy Appreciate recommendations from general surgeon, clear liquid diet, NPO after midnight today. Plans for cholecystectomy on 01/27/25. Continue with IV Zosyn for management for UTI, patient received IV Zosyn in the ER with no side effects Patient is NPO Continue to monitor electrolytes and replete as necessary Pain control with IV hydromorphone for severe pain on IV Toradol for moderate pain All labs will be repeated in the morning including CBC, CMP, magnesium GI prophylaxis with Protonix, DVT prophylaxis with Lovenox, will continue to hold. Provide SCD bilaterally Case seen and examined with Dr. Cormier , above plan was formulated ATTESTATION BY PHYSICIAN I have seen and examined the patient. I reviewed the documentation, medical decision making, and treatment plan as noted by the mid-level provider above. I agree with the findings and plan of care. SANDHYA MINER MD, [facility] Jan 27, 2025 08:58
[2025-01-27] MEDS: GABAPENTIN 300 MG CAPSULE ONE (12:26)
[2025-01-27] MEDS: FAMOTIDINE 20MG VIAL IV ONE (12:26)
[2025-01-27] MEDS ORDERED: LIDOCAINE PF 100MG/5ML (2%) SYRINGE 5ML ONE (12:28)
[2025-01-27] MEDS: INDOCYANINE GREEN 25 MG VIAL IJ ONE (12:34)
[2025-01-27] MEDS: ZOSYN 3.375GM+NS 50ML 50 ML ONE (13:08)
[2025-01-27] MEDS ORDERED: MIDAZOLAM HCL 1 MG/ML 2ML VIAL ONE (13:32)
[2025-01-27] MEDS ORDERED: GLYCOPYRROLATE 0.2 MG/ML 5 ML VIAL ONE (13:36)
[2025-01-27] MEDS ORDERED: NEOSTIGMINE METHYLSULFATE 1MG/ML IV ONE (13:36)
[2025-01-27] MEDS: LIDOCAINE HCL 1% 20 ML VIAL ONE (13:38)
--- NOTE | 2025-01-27 14:25 | OP ---
Operative Note: DATE OF PROCEDURE: 01/27/25 SURGEON: KAT STONE DO CANCELLATION CLERK: None ANESTHESIA: General ANESTHESIOLOGIST/GLASS CUTTER HELPER: ROLANDA To PREOPERATIVE DIAGNOSIS: Gallstone pancreatitis POSTOPERATIVE DIAGNOSIS: Gallstone pancreatitis SYNOPSIS: none PROCEDURE: Robotic cholecystectomy ESTIMATED BLOOD LOSS: 5 cc INDICATIONS: 23 f epigastric pain and elevated lipase. US shows gallstones. After resolution of symptoms I recommended cholecystectomy. I discussed the pr ocedure in detail with the patient. All questions answered. Patient expressed understanding and agreement with plan. DESCRIPTION OF PROCEDURE: Patient was placed on the operating table in the supine position with arms tucked. After adequate sedation the patient was intubated by anesthesia. Perioperative antibiotics were given. The patient's abdomen was prepped and draped in the usual sterile fashion. Local anesthetic was infiltrated into the skin and soft tissue of the proposed supraumbilical skin incision. A transverse supraumbilical skin incision was made and dissection was carried down to the level of the fascia. The fascia was elevated with Johanna clamps and incised. The peritoneum was entered bluntly and a 12 mm balloon Shipman port was placed. The abdomen was insufflated and the patient tolerated insufflation well. A camera was inserted and all 4 quadrants of the abdomen were inspected. No apparent gross abnormality was seen as well as no evidence of inadvertent injury on entry. Three robotic ports were placed in the left and right upper quadrant under direct visualization. The patient was placed in head up and right side up position. The robot was docked. The gallbladder was grasped at its fundus and retracted cephalad. Thin adhesions to the duodenum were taken down bluntly. Once the Lance's pouch was visualized dissection was carried out around the hepatocystic triangle until a single ductal structure was seen exiting the tapering Lance's pouch. After critical view was achieved the cystic artery was serially clipped and ligated and the cystic duct was serially clipped and ligated. The gallbladder was removed from the fossa using electrocautery and placed in an Endo Catch bag for later retrieval. The liver was inspected for hemostasis. Small bleeding edges of the liver were cauterized. The area was again checked and found to be hemostatic. The robot was undocked. The robotic ports were removed under direct visualization and found to be hemostatic. The gallbladder was removed and handed off for routine pathology. The fascia of the 12 mm port site was approximated using a single [id number] suture of 0 Vicryl. The port sites were irrigated with saline. The skin was approximated with 4-0 Monocryl in a subcuticular fashion. The wounds were dressed with Dermabond. All instrument, needle, and sponge counts were correct at the end of the procedure. The patient tolerated the procedure well. The patient was aroused from sedation, extubated, and transferred to the postanesthesia care unit in good condition. KAT STONE DO Jan 27, 2025 14:25
--- NOTE | 2025-01-27 16:01 | PN ---
GASTROENTEROLOGY PROGRESS NOTE Date of Visit: Jan 27, 2025 Time of Visit: 16:01 Events / Notes: [ ] Review of Systems: CONSTITUTIONAL: No malaise or change in sensation of wellbeing. ENMT: No rhinorrhea, otorrhea, sinus pain, ear ache. CARDIOVASCULAR: No angina, palpitations, orthopnea or paroxysmal dyspnea. RESPIRATORY: No SOB. GASTROINTESTINAL: No abdominal pain, nausea, vomiting, diarrhea, hematemesis, melena or change in the patient's habitual bowel movements consistency/number. GENITOURINARY: No dysuria, hematuria or change in bladder continence. MUSCULOSKELETAL: No new muscle pain or decrease in muscular strength. No new joint swelling, redness or tenderness. SKIN: No new rash. Physical Exam: GEN: Awake, alert, oriented in person, time and place, and in no acute distress. HEENT: No sinus tenderness. Tympanic membranes were not examined. No rhinorrhea. Oral pharyngeal mucosa is pink, moist and within normal limits. Neck is supple with no cervical lymphadenopathy, thyromegaly or JVD. CHEST: Inspection, palpation and percussion of the chest were unremarkable. Lung auscultation revealed normal breath sounds bilaterally. CARDIAC: PMI is within normal limits. Heart sounds are regular. Normal S1, S2. No gallop or murmur. ABD: Soft, non-tender and not distended. No peritoneal signs on palpation. No organomegaly. Normal bowel sounds. EXT: No cyanosis or clubbing. No edema. SKIN: Intact. No rashes. JOINTS: No evidence of synovitis or acute arthritis. NEURO: Alert and oriented to name, place and person. Cranial nerve examination is unremarkable. No focal motor deficits. Normal speech. Gait is normal. Strength is normal. Vital Signs (last 8hr) Date Time Temp Pulse Resp B/P (MAP) Pulse Ox O2 Delivery O2 Flow Rate FiO2 01/27/25 15:19 97.7 80 20 122/78 99 Nasal Cannula 2.0 01/27/25 15:14 79 18 118/76 99 Nasal Cannula 2.0 01/27/25 15:09 78 18 112/75 99 Nasal Cannula 2.0 01/27/25 15:04 80 19 115/77 99 Nasal Cannula 2.0 01/27/25 14:59 81 20 116/74 99 Nasal Cannula 2.0 01/27/25 14:54 82 20 120/82 100 Nonrebreathing Mask 10.0 100 01/27/25 14:49 80 20 121/79 100 Nonrebreathing Mask 10.0 100 01/27/25 14:44 78 17 108/69 100 Nonrebreathing Mask 10.0 100 01/27/25 14:39 79 17 102/60 100 Nonrebreathing Mask 10.0 100 01/27/25 14:34 97.5 82 15 104/60 100 Nonrebreathing Mask 10.0 100 01/27/25 12:01 98.6 87 19 133/81 96 Room Air 21 Laboratory: [ ] Laboratory: Test 01/27/25 05:25 01/26/25 05:12 Range/Units White Blood Count 8.1 4.8-10.8 K/uL Red Blood Count 3.87 L 4.00-5.50 MIL/uL Hemoglobin 9.7 L 12.0-16.0 g/dL Hematocrit 30.3 L 36-48 % Mean Corpuscular Volume 78.3 L 79-99 fL Mean Corpuscular Hemoglobin 25.1 L 27.0-33.0 pg Mean Corpuscular Hemoglobin Concent 32.0 32.0-36.0 g/dL Red Cell Distribution Width 19.4 H 11.0-15.5 % Platelet Count 297 130-400 K/uL Mean Platelet Volume 9.7 7.5-10.5 fL Nucleated Red Blood Cells 0.0 0.0-0.19 % Sodium Level 141 136-145 mmol/L Potassium Level 3.9 3.5-5.1 mmol/L Chloride Level 104 101-111 mmol/L Carbon Dioxide Level 26 21-32 mmol/L Blood Urea Nitrogen 4 L 7-18 mg/dL Creatinine 0.6 0.5-1.0 mg/dL Glomerular Filtration Rate Calc 129 >90 mL/min Random Glucose 60 L 70-105 mg/dL Total Calcium 8.7 8.5-10.1 mg/dL Total Bilirubin 1.1 H 0.2-1.0 mg/dL Aspartate Amino Transf (AST/SGOT) 26 10-37 U/L Alanine Aminotransferase (ALT/SGPT) 129 H 12-78 U/L Alkaline Phosphatase 250 H 50-136 U/L C-Reactive Protein, Quantitative 60.90 H 0.5-3.0 mg/L Total Protein 6.6 6.0-8.3 g/dL Albumin 2.7 L 3.5-5.0 g/dL Serum Test, Qualitative NEGATIVE NEGATIVE Lipase 244 H 16-77 U/L Current Medications Medications (Trade) Dose Ordered Sig/Jazmine Route PRN Reason Start Time Stop Time Status Last Admin Dose Admin Acetaminophen (TYLenol 325MG TAB) 650 mg Q6H PRN PO MILD PAIN (1-3) 01/22/25 15:00 02/21/25 14:59 Enoxaparin Sodium (Lovenox) 30 mg DAILY SQ 01/23/25 09:00 01/22/25 19:51 DC Enoxaparin Sodium (Lovenox) 30 mg HS SQ 01/23/25 21:00 01/24/25 13:16 DC 01/23/25 20:50 30 MG Hydromorphone HCl (DiLAUDid 0.5MG INJ) 0.5 mg Q6H PRN IVP SEVERE PAIN (7-10) 01/22/25 15:00 01/27/25 14:59 DC 01/26/25 23:03 0.5 MG Hydromorphone HCl (DiLAUDid 0.5MG INJ) 0.5 mg Q6H PRN IVP SEVERE PAIN (7-10) 01/27/25 16:00 02/01/25 15:59 Ketorolac Tromethamine (toRADol) 15 mg Q8H PRN IV MODERATE PAIN (4-6) 01/22/25 15:00 01/24/25 16:00 DC 01/23/25 14:40 15 MG Lactated Ringer's 1,000 ml @ 75 mls/hr [id number] IV 01/22/25 15:00 02/21/25 14:59 01/26/25 21:33 75 MLS/HR Magnesium Sulfate 50 ml @ 0 mls/hr PROTOCOL IV 01/22/25 15:00 01/23/25 09:36 DC 01/22/25 17:49 25 MLS/HR Magnesium Sulfate 50 ml @ 0 mls/hr PROTOCOL IV 01/23/25 09:30 02/22/25 09:29 Pantoprazole Sodium (PROTonix 40MG INJ) 40 mg DAILY IVP 01/23/25 09:00 02/22/25 08:59 01/27/25 09:04 40 MG Piperacillin Sod/ Tazobactam Sod (Zosyn 3.375gm+NS 50ml) 3.375 gm Q8H IVPB 01/23/25 06:00 02/02/25 05:59 01/27/25 13:35 3.375 GM Piperacillin Sod/ Tazobactam Sod (Zosyn 3.375gm+NS 50ml) 3.375 gm TID IVPB 01/22/25 21:00 01/23/25 04:07 DC 01/22/25 22:00 3.375 GM Potassium Chloride 100 ml @ 100 mls/hr AD PRN IV POTASSIUM PROTOCOL 01/22/25 15:00 02/21/25 14:59 Potassium Chloride (K-Dur/Klor-Con 20meq) 20 meq AD PRN PO POTASSIUM PROTOCOL 01/22/25 15:00 02/21/25 14:59 01/25/25 15:20 20 MEQ Potassium Chloride (KCl 10% Elixir 20meq/15ml) 20 meq AD PRN PO POTASSIUM PROTOCOL 01/22/25 15:00 02/21/25 14:59 Diagnostics / Radiology: [COPY/PASTE HERE IF NO REPORTS PLEASE DELETE SECTION] Assessment: Acute pancreatitis Plan: Trend LFTs NATALY BOWER [employer]OCKRO[employer] INVENTORY CLERK Jan 27, 2025 16:01
[2025-01-28] VITALS: BP 111/69; PULSE 68; RESP 16; TEMP 97.7
[2025-01-28 04:00] VITALS: BP 120/76; PULSE 75; RESP 16; TEMP 97.7
--- NOTE | 2025-01-28 07:39 | PN ---
GASTROENTEROLOGY PROGRESS NOTE Date of Visit: Jan 28, 2025 Time of Visit: 07:39 Events / Notes: [ ] Review of Systems: CONSTITUTIONAL: No malaise or change in sensation of wellbeing. ENMT: No rhinorrhea, otorrhea, sinus pain, ear ache. CARDIOVASCULAR: No angina, palpitations, orthopnea or paroxysmal dyspnea. RESPIRATORY: No SOB. GASTROINTESTINAL: No abdominal pain, nausea, vomiting, diarrhea, hematemesis, melena or change in the patient's habitual bowel movements consistency/number. GENITOURINARY: No dysuria, hematuria or change in bladder continence. MUSCULOSKELETAL: No new muscle pain or decrease in muscular strength. No new joint swelling, redness or tenderness. SKIN: No new rash. Physical Exam: GEN: Awake, alert, oriented in person, time and place, and in no acute distress. HEENT: No sinus tenderness. Tympanic membranes were not examined. No rhinorrhea. Oral pharyngeal mucosa is pink, moist and within normal limits. Neck is supple with no cervical lymphadenopathy, thyromegaly or JVD. CHEST: Inspection, palpation and percussion of the chest were unremarkable. Lung auscultation revealed normal breath sounds bilaterally. CARDIAC: PMI is within normal limits. Heart sounds are regular. Normal S1, S2. No gallop or murmur. ABD: Soft, non-tender and not distended. No peritoneal signs on palpation. No organomegaly. Normal bowel sounds. EXT: No cyanosis or clubbing. No edema. SKIN: Intact. No rashes. JOINTS: No evidence of synovitis or acute arthritis. NEURO: Alert and oriented to name, place and person. Cranial nerve examination is unremarkable. No focal motor deficits. Normal speech. Gait is normal. Strength is normal. Vital Signs (last 8hr) Date Time Temp Pulse Resp B/P (MAP) Pulse Ox O2 Delivery O2 Flow Rate FiO2 01/28/25 04:00 97.7 75 16 120/76 96 Room Air 01/28/25 00:00 97.7 68 16 111/69 94 Room Air Laboratory: [ ] Laboratory: Test 01/27/25 05:25 Range/Units White Blood Count 8.1 4.8-10.8 K/uL Red Blood Count 3.87 L 4.00-5.50 MIL/uL Hemoglobin 9.7 L 12.0-16.0 g/dL Hematocrit 30.3 L 36-48 % Mean Corpuscular Volume 78.3 L 79-99 fL Mean Corpuscular Hemoglobin 25.1 L 27.0-33.0 pg Mean Corpuscular Hemoglobin Concent 32.0 32.0-36.0 g/dL Red Cell Distribution Width 19.4 H 11.0-15.5 % Platelet Count 297 130-400 K/uL Mean Platelet Volume 9.7 7.5-10.5 fL Nucleated Red Blood Cells 0.0 0.0-0.19 % Sodium Level 141 136-145 mmol/L Potassium Level 3.9 3.5-5.1 mmol/L Chloride Level 104 101-111 mmol/L Carbon Dioxide Level 26 21-32 mmol/L Blood Urea Nitrogen 4 L 7-18 mg/dL Creatinine 0.6 0.5-1.0 mg/dL Glomerular Filtration Rate Calc 129 >90 mL/min Random Glucose 60 L 70-105 mg/dL Total Calcium 8.7 8.5-10.1 mg/dL Total Bilirubin 1.1 H 0.2-1.0 mg/dL Aspartate Amino Transf (AST/SGOT) 26 10-37 U/L Alanine Aminotransferase (ALT/SGPT) 129 H 12-78 U/L Alkaline Phosphatase 250 H 50-136 U/L C-Reactive Protein, Quantitative 60.90 H 0.5-3.0 mg/L Total Protein 6.6 6.0-8.3 g/dL Albumin 2.7 L 3.5-5.0 g/dL Serum Test, Qualitative NEGATIVE NEGATIVE Current Medications Medications (Trade) Dose Ordered Sig/Jazmine Route PRN Reason Start Time Stop Time Status Last Admin Dose Admin Acetaminophen (TYLenol 325MG TAB) 650 mg Q6H PRN PO MILD PAIN (1-3) 01/22/25 15:00 02/21/25 14:59 Enoxaparin Sodium (Lovenox) 30 mg DAILY SQ 01/23/25 09:00 01/22/25 19:51 DC Enoxaparin Sodium (Lovenox) 30 mg HS SQ 01/23/25 21:00 01/24/25 13:16 DC 01/23/25 20:50 30 MG Hydromorphone HCl (DiLAUDid 0.5MG INJ) 0.5 mg Q6H PRN IVP SEVERE PAIN (7-10) 01/22/25 15:00 01/27/25 14:59 DC 01/26/25 23:03 0.5 MG Hydromorphone HCl (DiLAUDid 0.5MG INJ) 0.5 mg Q6H PRN IVP SEVERE PAIN (7-10) 01/27/25 16:00 02/01/25 15:59 01/28/25 06:42 0.5 MG Ketorolac Tromethamine (toRADol) 15 mg Q8H PRN IV MODERATE PAIN (4-6) 01/22/25 15:00 01/24/25 16:00 DC 01/23/25 14:40 15 MG Lactated Ringer's 1,000 ml @ 75 mls/hr [id number] IV 01/22/25 15:00 02/21/25 14:59 01/27/25 16:56 75 MLS/HR Magnesium Sulfate 50 ml @ 0 mls/hr PROTOCOL IV 01/22/25 15:00 01/23/25 09:36 DC 01/22/25 17:49 25 MLS/HR Magnesium Sulfate 50 ml @ 0 mls/hr PROTOCOL IV 01/23/25 09:30 02/22/25 09:29 Pantoprazole Sodium (PROTonix 40MG INJ) 40 mg DAILY IVP 01/23/25 09:00 02/22/25 08:59 01/27/25 09:04 40 MG Piperacillin Sod/ Tazobactam Sod (Zosyn 3.375gm+NS 50ml) 3.375 gm Q8H IVPB 01/23/25 06:00 02/02/25 05:59 01/28/25 05:38 3.375 GM Piperacillin Sod/ Tazobactam Sod (Zosyn 3.375gm+NS 50ml) 3.375 gm TID IVPB 01/22/25 21:00 01/23/25 04:07 DC 01/22/25 22:00 3.375 GM Potassium Chloride 100 ml @ 100 mls/hr AD PRN IV POTASSIUM PROTOCOL 01/22/25 15:00 02/21/25 14:59 Potassium Chloride (K-Dur/Klor-Con 20meq) 20 meq AD PRN PO POTASSIUM PROTOCOL 01/22/25 15:00 02/21/25 14:59 01/25/25 15:20 20 MEQ Potassium Chloride (KCl 10% Elixir 20meq/15ml) 20 meq AD PRN PO POTASSIUM PROTOCOL 01/22/25 15:00 02/21/25 14:59 Diagnostics / Radiology: [COPY/PASTE HERE IF NO REPORTS PLEASE DELETE SECTION] Assessment: Acute pancreatitis Plan: Trend LFTs NATALY BOWER WAFER CLEANER Jan 28, 2025 07:39
[2025-01-28 08:00] VITALS: BP 128/88; PULSE 74; RESP 18; TEMP 97.6; O2SAT 97
[2025-01-28 12:00] VITALS: BP 112/77; PULSE 74; RESP 18; TEMP 97.8
[2025-01-28] MEDS ORDERED: CEFD300C3 PO (12:22)
--- NOTE | 2025-01-28 12:22 | DS ---
Discharge Summary Hospital Course Summary: [The patient is a 24-year-old female with a history of gastritis who presented to the emergency room with severe epigastric abdominal pain, accompanied by nausea and vomiting, persisting for five days. She reported multiple episodes of vomiting and poor oral intake, with the pain rated at 10 out of 10 in severity. She has no significant past medical history or known cardiac or pulmonary conditions. Upon arrival at the hospital, she was afebrile and hemodynamically stable. Initial laboratory tests revealed an elevated white blood cell count of 12,400, normal hemoglobin, and a platelet count of 374,000. Her basic metabolic panel showed a low potassium level of 2.8, with other electrolytes within normal limits. Liver function tests were notably elevated, with a total bilirubin of 5.1, AST of 299, ALT of 522, and alkaline phosphatase of 383. Her lipase level was significantly elevated at 9,744, suggesting acute pancreatitis, likely seco ndary to choledocholithiasis. Additionally, she was found to have cloudy urine indicative of a urinary tract infection, for which she was started on intravenous antibiotics. The patient was admitted for further management, with consultations requested from gastroenterology and general surgery. Over the next 48-72 hours, she was closely monitored. On the following day, her lipase level had decreased to 1,476. An abdominal ultrasound and MRCP confirmed the presence of gallstones in a distended gallbladder and a dilated common bile duct measuring 11 mm, though no stones were visualized in the duct. Tiny ascites were also noted. On 01/24/25 ERCP was done which showed bubbles found in the biliary tract, biliary sphincterotomy was performed. The biliary tree was swept with minimal sludge was found. Indomethacin given to decrease risk of post ERCP pancreatitis. 01/28/2025 patient is hemodynamically stable status post day one robotic lap ciara patient is recuperating well tolerating diet no nausea no vomiting. Patient Gram-negative UTI E coli we will be discharged on cefdinir 300 mg twice a day for five days. Patient was instructed no heavy lifting greater than 10 lb for four weeks until further instructions from surgery, keep incisions clean and dry wash with soap and water and to avoid greasy foods. All questions and concerns were addressed. Intake Counselor(s): REASON: RUQ PAIN ORDERING PHYSICIAN: NEMESIO XAVIER MD PROCEDURE: ABDRUQLTZak - US ABDOMINAL RUQ\LTD US ABDOMINAL RUQ\E\LTD HISTORY: Right upper quadrant and COMPARISON: None TECHNIQUE: Right upper quadrant abdominal ultrasound study was performed. FINDINGS: Liver measured 15 cm. The visualized portion of the pancreas is within normal limits. Liver is echogenic consistent with liver parenchymal disease. Gallstones are seen in the distended gallbladder. Common duct measures 8 mm. No evidence of gallbladder wall thickening is seen. Right kidney measures 10 point 4 x 4 by 4.5 cm. No hydronephrosis is seen of the right kidney. IMPRESSION: 1. Gallstones in a distended gallbladder. Ductal dilatation is seen. 2. No hydronephrosis is seen. REASON: pancreatitis, suspected choledocholithiasis ORDERING PHYSICIAN: CORNELIUS ERICKSON MD PROCEDURE: MRCP WO - MRCP(ABDWO)CHOLANGIOPANCREATOG MRCP(ABDWO)CHOLANGIOPANCREATOG HISTORY: Pancreatitis COMPARISON: Ultrasound from the same day TECHNIQUE: MRI of the abdomen was performed utilizing multiple pulse sequences in axial, coronal and sagittal planes. Patient was not given contrast through intravenous route. MRCP was obtained. FINDINGS: Liver measures 16 cm. Spleen measured 12 cm. A jejunal glands and pancreas are unremarkable. Common duct is dilated measuring 11 mm. Gallstones are seen in the gallbladder. No definite MR evidence of common duct stone is seen. Both kidneys are seen without hydronephrosis. There is small left perinephric fluid collection. Small ascites fluid is seen. The nonaggressive pancreas are unremarkable. IMPRESSION: 1. Gallstones are seen in the distended gallbladder. Common duct is dilated measuring 11 mm. No MR evidence of common duct stone is seen however and clinical correlation is recommended. Tiny ascites is seen. REASON: Choledodocho lithiasis ORDERING PHYSICIAN: SOFIA PLEITEZ MD PROCEDURE: ERCP1 - X-RAY BILIARY DUCT ENDOSCOPY Fluoroscopy utilized for ERCP. The interpreting radiologist was not present during the procedure. The total fluoroscopy time has been recorded in the electronic medical record. /[place] Procedure(s): Operative Note: DATE OF PROCEDURE: 01/27/25 SURGEON: KAT STONE DO DECAL MAKER: None ANESTHESIA: General ANESTHESIOLOGIST/POSTDOCTORAL FELLOW: ROLANDA To PREOPERATIVE DIAGNOSIS: Gallstone pancreatitis POSTOPERATIVE DIAGNOSIS: Gallstone pancreatitis SYNOPSIS: none PROCEDURE: Robotic cholecystectomy ESTIMATED BLOOD LOSS: 5 cc INDICATIONS: 24 f epigastric pain and elevated lipase. US shows gallstones. After resolution of symptoms I recommended cholecystectomy. I discussed the procedure in detail with the patient. All questions answered. Patient expressed understanding and agreement with plan. DESCRIPTION OF PROCEDURE: Patient was placed on the operating table in the supine position with arms tucked. After adequate sedation the patient was intubated by anesthesia. Perioperative antibiotics were given. The patient's abdomen was prepped and draped in the usual sterile fashion. Local anesthetic was infiltrated into the skin and soft tissue of the proposed supraumbilical skin incision. A transverse supraumbilical skin incision was made and dissection was carried down to the level of the fascia. The fascia was elevated with Johanna clamps and incised. The peritoneum was entered bluntly and a 12 mm balloon Shipman port was placed. The abdomen was insufflated and the patient tolerated insufflation well. A camera was inserted and all 4 quadrants of the abdomen were inspected. No apparent gross abnormality was seen as well as no evidence of inadvertent injury on entry. Three robotic ports were placed in the left and right upper quadrant under direct visualization. The patient was placed in head up and right side up position. The robot was docked. The gallbladder was grasped at its fundus and retracted cephalad. Thin adhesions to the duodenum were taken down bluntly. Once the Lance's pouch was visualized dissection was carried out around the hepatocystic triangle until a single ductal structure was seen exiting the tapering Lance's pouch. After critical view was achieved the cystic artery was serially clipped and ligated and the cystic duct was serially clipped and ligated. The gallbladder was removed from the fossa using electrocautery and placed in an Endo Catch bag for later re trieval. The liver was inspected for hemostasis. Small bleeding edges of the liver were cauterized. The area was again checked and found to be hemostatic. The robot was undocked. The robotic ports were removed under direct visualization and found to be hemostatic. The gallbladder was removed and handed off for routine pathology. The fascia of the 12 mm port site was approximated using a single [id number] suture of 0 Vicryl. The port sites were irrigated with saline. The skin was approximated with 4-0 Monocryl in a subcuticular fashion. The wounds were dressed with Dermabond. All instrument, needle, and sponge counts were correct at the end of the procedure. The patient tolerated the procedure well. The patient was aroused from sedation, ext ubated, and transferred to the postanesthesia care unit in good condition. KAT STONE DO Jan 27, 2025 14:25 Electronically Signed by: KAT STONE DO01/27/25 1425 Electronically Co-Signed by: Assessment/Plan: Discharged dx's; Biliary pancreatitis, POA resolved Acute pancreatitis secondary to gallstones, POA s/p Robotic lap ciara Acute dehydration, POA resolved Severe hypokalemia, POA corrected Suspected choledocholithiasis, POA improving Cholelithiasis, POA s/p lap ciara Urinary tract infection, Gram-negative E coli POA PLAN: ADMISSION DATE: 01/22/2025 DISCHARGE DATE: 01/28/2025 DISPOSITION: Home CONDITION: Stable PROGRAMMER DEVELOPER(S): GI, general surgeon FOLLOW UP APPOINTMENT(S): Dr Estrada one wk PROCEDURES: Robotic lap ciara IMAGING (S) report attached to summary : ERCP, MRCP Abd US MICROBIOLOGY: report attached to summary; urine cultures ACTIVITY: Ad fuentes HOME MEDICATIONS none profile NEW MEDICATIONS cefdinir 300 mg p.o. b.i.d x5 days and OTC: Ibuprofen 200 mg as needed for pain. TEACHING: Advised no heavy lifting, keep incisions clean and dry . Diet avoid greasy foods GI soft. Emergency instructions: The patient was instructed to present to the nearest Emergency Department or call 911 should their symptoms return or worsen. Discharge Instructions: RUN DATE: 01/24/25 [facility] PAGE 1 RUN TIME: [id number] [place] [id number] Department of Laboratories [facility] # [id number] Central Service Supply Distributor: Thomas Pelaez DO Specimen Report PATIENT: HADLEY BREWER ACCT: [id number] LOC: [facility] U: [id number] AGE/SX: 24/F ROOM: 306 RE01/22/[address]: CORNELIUS ERICKSON MD : 2000 BED: 1 DIS: STATUS: ADM IN TLOC: SPEC: [id number] UMBERTO: 01/22/25 STATUS: COMP REQ: [id number] RECD: 01/23/[address] [facility] [address]: NEMESIO XAVIER MD [place] [facility] [place] 01/23/[address] [facility] [address]: SELF,REFERRAL SPDESC: CLEAN CAT ORDERED: AERO ID & SENS ------- ----- Procedure Result Rl Date-Time AEROBIC ID & SENSITIVITIES Final 01/24/25-639 MRL COLONY DESCRIPTION: DAY 1: ISOLATE #1: COLONY COUNT: <10,000 CFU ML GRAM NEGATIVE RODS IDENTIFICATION AND SENSITIVITY TO FOLLOW ISOLATE #2: COLONY COUNT: >100,000 CFU/ML GRAM POSITIVE COCCI IN CLUSTERS COAGULASE NEGATIVE STAPHYLOCOCCUS . IDENTIFICATION AND SENSITIVITY TO FOLLOW ESCHERICHIA COLI STAPHYLOCOCCUS EPIDERMIDIS E COLI STA EPIDER M.I.C. RX M.I.C. RX --------- ---- --------- ---- AMPICILLIN <=8 S AZTREONAM <=4 S CEFAZOLIN <=2 S CEFTAZIDIME/AVIBACTAM <=8 S GENTAMICIN <=2 S <=4 S LEVOFLOXACIN <=0.5 S <=1 S VANCOMYCIN 1 S NITROFURANTOIN <=32 S OXACILLIN RICK <=0.25 S RIFAMPIN <=1 S MEROPENEM <=1 S PENICILLIN 2 Baljinder PIPERACILLIN/TAZOBACTAM <=8 S TRIMETHOPRIM/SUFLAMETHOXAZOLE <=2/38 S <=0.5/9.5 S @ [facility] Test Performed at: [facility] [address], [place], [place] Medical Dump Operator: David Guzman D.O. END OF REPORT Home Medications: Discontinued Reported Medications Vits #93/Iron Fum/FA ( Formula Tablet) 9 Mg Iron-267 Mcg Tablet, 1 EACH PO DAILY, TAB 08/13/23 Discontinued Scripts Ondansetron (Ondansetron Odt) 4 Mg Tab.rapdis, 4 MG PO Q6HPRN PRN for nausea, #1 6 TAB 0 Refills Prov:THEO JEAN MD 08/17/24 Cyclobenzaprine HCl (Flexeril) 10 Mg Tab, 10 MG PO TID for muscle sstiffness, #14 TAB 0 Refills Prov:SHIVANI CALLE NP 03/03/24 Ibuprofen (Ibuprofen) 600 Mg Tablet, 600 MG PO Q6H PRN for PAIN, #30 TAB Prov:SHIVANI CALLE NP 03/03/24 Methylprednisolone (Medrol) 4 Mg Tab.ds.pk, 4 MG PO AD, #1 UNIT Prov:SHIVANI CALLE [employer] MARKETING PRODUCTION MANAGER 03/03/24 New Medications: Cefdinir (Cefdinir) 300 Mg Capsule 1 CAP PO BID for 5 Days, #10 CAP 0 Refills Time spent arranging discharge: 31-60 minutes ATTESTATION BY PHYSICIAN I have seen and examined the patient. I reviewed the documentation, medical decision making, and treatment plan as noted by the mid-level provider above. I agree with the findings and plan of care. SANDHYA MINER MD, ELIZABETH NP Jan 28, 2025 12:22
--- NOTE | 2025-01-28 15:06 | PN ---
GENERAL SURGERY PROGRESS NOTE Date/Time Patient Seen: [ 01/28/2025 12:30 PM] Problem List: [23-year-old female postop day 1., robotic cholecystectomy by Dr. Ambriz ] Interval History: [ 24-year-old female sitting comfortably at bedside Patient has been tolerating regular diet without any complaints of nausea or vomiting Patient has been passing gas and ambulating Abdomen is soft, nondistended, with expected soreness over surgical incisions Surgical incisions with edges well approximated using Dermabond, no drainage WBCs 8.1 H&H 9.7 and 30.3 Bilirubin down to 1.1 with normal LFTs ] Current Medications Medications (Trade) Dose Ordered Sig/Jazmine Route Start Time Stop Time Status Last Admin Dose Admin Enoxaparin Sodium (Lovenox) 30 mg DAILY SQ 01/23/25 09:00 01/22/25 19:51 DC Enoxaparin Sodium (Lovenox) 30 mg HS SQ 01/23/25 21:00 01/24/25 13:16 DC 01/23/25 20:50 30 MG Lactated Ringer's 1,000 ml @ 75 mls/hr [id number] IV 01/22/25 15:00 02/21/25 14:59 01/27/25 16:56 75 MLS/HR Magnesium Sulfate 50 ml @ 0 mls/hr PROTOCOL IV 01/22/25 15:00 01/23/25 09:36 DC 01/22/25 17:49 25 MLS/HR Magnesium Sulfate 50 ml @ 0 mls/hr PROTOCOL IV 01/23/25 09:30 02/22/25 09:29 Pantoprazole Sodium (PROTonix 40MG INJ) 40 mg DAILY IVP 01/23/25 09:00 02/22/25 08:59 01/28/25 09:43 40 MG Piperacillin Sod/ Tazobactam Sod (Zosyn 3.375gm+NS 50ml) 3.375 gm Q8H IVPB 01/23/25 06:00 02/02/25 05:59 01/28/25 05:38 3.375 GM Piperacillin Sod/ Tazobactam Sod (Zosyn 3.375gm+NS 50ml) 3.375 gm TID IVPB 01/22/25 21:00 01/23/25 04:07 DC 01/22/25 22:00 3.375 GM Physical Examination: GENERAL: [No acute distress sitting comfortably at bedside.] HEAD: [Normocephalic.] EYES: [Nonicteric sclera bilaterally.] ENT: [Hearing grossly intact.] NECK: [Supple.] LUNGS: [Clear breath sounds bilaterally.] HEART: [Normal rate and rhythm] VASC: [Peripheral pulses +2 bilaterally.] ABD: [soft, nondistended, surgical incisions with edges well approximated with Dermabond, no drainage.] : [Not examined] EXT: [No edema.] SKIN: [No lesions noted.] NEURO: [Awake, alert, and oriented x3. No focal sensory or strength deficits noted.] Vital Signs (last 8hr) Date Time Temp Pulse Resp B/P (MAP) Pulse Ox O2 Delivery O2 Flow Rate FiO2 01/28/25 12:00 97.9 74 18 112/77 95 Room Air 01/28/25 08:00 97.5 74 18 128/88 97 Room Air 01/28/25 08:00 97 Room Air* 0 21 Laboratory: [ ] Hematology Labs: Test 01/27/25 05:25 Range/Units White Blood Count 8.1 4.8-10.8 K/uL Red Blood Count 3.87 L 4.00-5.50 MIL/uL Hemoglobin 9.7 L 12.0-16.0 g/dL Hematocrit 30.3 L 36-48 % Mean Corpuscular Volume 78.3 L 79-99 fL Mean Corpuscular Hemoglobin 25.1 L 27.0-33.0 pg Mean Corpuscular Hemoglobin Concent 32.0 32.0-36.0 g/dL Red Cell Distribution Width 19.4 H 11.0-15.5 % Platelet Count 297 130-400 K/uL Mean Platelet Volume 9.7 7.5-10.5 fL Nucleated Red Blood Cells 0.0 0.0-0.19 % Chemistry Labs: Test 01/27/25 05:25 Range/Units Sodium Level 141 136-145 mmol/L Potassium Level 3.9 3.5-5.1 mmol/L Chloride Level 104 101-111 mmol/L Carbon Dioxide Level 26 21-32 mmol/L Blood Urea Nitrogen 4 L 7-18 mg/dL Creatinine 0.6 0.5-1.0 mg/dL Glomerular Filtration Rate Calc 129 >90 mL/min Random Glucose 60 L 70-105 mg/dL Total Calcium 8.7 8.5-10.1 mg/dL Total Bilirubin 1.1 H 0.2-1.0 mg/dL Aspartate Amino Transf (AST/SGOT) 26 10-37 U/L Alanine Aminotransferase (ALT/SGPT) 129 H 12-78 U/L Alkaline Phosphatase 250 H 50-136 U/L C-Reactive Protein, Quantitative 60.90 H 0.5-3.0 mg/L Total Protein 6.6 6.0-8.3 g/dL Albumin 2.7 L 3.5-5.0 g/dL Serum Test, Qualitative NEGATIVE NEGATIVE Diagnostics / Radiology: [Copy/Paste Echos/Imaging Report here] Plan: From surgical standpoint, patient may be discharged home Instructed to keep surgical incisions clean and dry, may wash with mild soap and water Avoid using lotion/cream/ointments No driving for 1 week No lifting more than 15 lb for 4 weeks Continue ambulating at home Instructed on signs and symptoms of infection to report Increase dietary fiber and water intake to prevent constipation May take Tylenol or ibuprofen as needed for pain Office follow-up with Dr. Ambriz in 1-[address] Ambriz updated on patient's status ATTESTATION BY PHYSICIAN I have seen and examined the patient. I reviewed the documentation, medical decision making, and treatment plan as noted by the mid-level provider above. I agree with the findings and plan of care. MD OLE Trujillo LETICIA A APRN Jan 28, 2025 15:06
== END 2025-01-28 15:10 | disposition home or self-care (01) | DRG 263 ==
LOC: EDH 11:19 → EDHIP 11:20 → 3BH 18:00
PROVIDERS: ADMIT Internal Medicine; ATTEND Internal Medicine
PROC: 0F798ZZ Dilation of Common Bile Duct, Via Natural or Artificial Opening Endoscopic (ICD-10-PCS; 2025-01-24)
PROC: BF141ZZ Fluoroscopy of Gallbladder, Bile Ducts and Pancreatic Ducts using Low Osmolar Contrast (ICD-10-PCS; 2025-01-24)
PROC: XFJB8A7 Inspection of Hepatobiliary Duct using Single-use Duodenoscope, New Technology Group 7 (ICD-10-PCS; 2025-01-24)
PROC: 8E0W4CZ Robotic Assisted Procedure of Trunk Region, Percutaneous Endoscopic Approach (ICD-10-PCS; 2025-01-27)
PROC: 0FT44ZZ Resection of Gallbladder, Percutaneous Endoscopic Approach (ICD-10-PCS; principal; 2025-01-27 13:14)
DX: K85.10 Biliary acute pancreatitis without necrosis or infection (principal); K80.60 Calculus of gallbladder and bile duct with cholecystitis, unspecified, without obstruction; N39.0 Urinary tract infection, site not specified; E86.0 Dehydration; E87.6 Hypokalemia; D64.9 Anemia, unspecified; K66.0 Peritoneal adhesions (postprocedural) (postinfection); K82.8 Other specified diseases of gallbladder; B96.20 Unspecified Escherichia coli [E. coli] as the cause of diseases classified elsewhere; B96.89 Other specified bacterial agents as the cause of diseases classified elsewhere; Z79.899 Other long term (current) drug therapy
CPT/HCPCS: 36415; 43262; 43264; 74181; 74328; 76705; 80048; 80053; 80076; 80305; 81001; 81025; 82550; 83690; 83735; 84145; 84478; 84702; 84703; 85025; 85027; 85610; 85651; 85730; 86140; 87086; 87186; 93005; 96374; 96375; 99285; A4606; C1769; C1773; G0378; J0330; J1100; J1171; J1650; J1885; J2003; J2250; J2405; J2470; J2543; J2704; J2710; J3010; J3475; J3480; J3490; J7030; J7120; Q9967; A4215; A4216; A4222; A4223; A4649; A7002; J0665; S8037